=== PATIENT | female | born 1965 | race African-American/Black ===

== ENCOUNTER 2020-06-15 08:17 | Emergency (ER) | payer MEDICARE, MEDICAID, SELFPAY ==
[2020-06-15 08:21] VITALS: BP 105/60; PULSE 100; RESP 13; TEMP 37.3; O2SAT 96; BMI 23.4
--- NOTE | 2020-06-15 09:05 | PC.NURSE ---
PT REFUSING TO GET IV, FIGHTING, PULLING ARM OUT, TRINY RN AT BEDSIDE TO TRY TO CONVINCE THE PT AND EXTRA HOLDING HAND, BUT PT CONTINUOS ON PULLING AWAY, SAYING NO IV'S THAT IT WILL HURT. MATTEO BOWSER AWARE
[2020-06-15] MEDS: LORazepam 1 MG TABLET PO (09:15)
--- NOTE | 2020-06-15 09:25 | ED.DENTAL ---
HPI - Dental/Oral General Chief complaint: Dental/Oral Stated complaint: dental pain Time Seen by Provider: 06/15/20 08:33 Source: patient and EMS Mode of arrival: EMS Limitations: no limitations History of Present Illness HPI Narrative: 54yoF c PMHx of intellectually disabled, psychosis, bipolar, dementia, epilepsy, DM and hypothyroidism who is currently residing at [facility] presenting to the ED c c/o worsening right dental pain/swelling/facial swelling for the past 3 days worse today. Reports that she was started on azithromycin yesterday and took 1 total dose. Came here today due to worsening pain and facial swelling. Related Data Previous Rx's Medication Instructions Recorded clindamycin HCl 300 mg PO TID 10 Days #30 cap 06/15/20 Allergies Allergy/AdvReac Type Severity Reaction Status Date / Time penicillin V Allergy Unknown Verified 11/28/13 00:00 Penicillins [PENICILLINS] Allergy Unknown SEIZURES Unverified 03/01/20 17:36 Review of Systems Review of Systems: Constitutional : No Fever, No Chills, No changes in PO intake, No difficulty speaking, no recent dental procedure, no heat or cold intolerance while eating, no recent face trauma, ENT/Mouth : No swallowing difficulty, no change in voice, No jaw pain, + facial swelling, no drooling, no trismus, no bleeding, no throat swelling, no lacerations, no tongue swelling, gum swelling, Eyes: No Eye Pain, + periorbital Swelling Cardiovascular : No Chest Pain, No SOB Respiratory : No Cough, No Sputum, No Wheezing, No Smoke Exposure, No Dyspnea Gastrointestinal : No Nausea, No Vomiting, No Diarrhea Genitourinary : No Dysuria Musculoskeletal : No Myalgias Skin : No rash, + facial swelling or redness, Neuro : No Weakness, No Numbness, No Headache Yes all other systems are reviewed and are negative PMFSH Past Medical History Attestation statement: The following information was validated with the patient. Medical History Bipolar disorder, unspecified Dementia Diabetes 1.5, managed as type 2 Dry eye syndrome of bilateral lacrimal glands Epilepsy Hypothyroidism Intellectual disability Psychoses Social History Social History Advance Directives: Yes Advance Directives on File: Yes Advance Directives Date on File: 06/15/20 Physical Exam Vital Signs: Vital Signs: Last Vital Signs Temp 99.1 F 06/15/20 14:26 Pulse 84 06/15/20 14:26 Resp 16 06/15/20 14:26 BP 147/68 H 06/15/20 14:26 Pulse Ox 98 06/15/20 14:26 Body Mass Index 23.4 vital signs have been reviewed as normal and appeared to be correct. Blood pressure normal. Heart rate normal. Respiration rate normal. Temperature normal. Oxygen saturation normal. Appearance: Alert. Oriented X3. No acute distress. Head: Right facial swelling with mild erythema otherwise the rest of the external exam is within normal limits. Eyes: PERRLA. EOMI. No entrapment noted. Conjunctiva and sclera normal. Right lower eyelid with soft tissue swelling. Right upper eyelid within normal limits. ENT: EAC normal. TM's Normal. Patient has multiple dental caries with poor dentition with multiple missing teeth although no fluctuance or gingivitis noted at this time. No peritonsillar abscess or pharyngeal abscess noted. Pharynx normal. Uvula midline. Moist mucous membranes. No trismus noted. No drooling noted. No muffled voice noted. Neck: Normal inspection. Neck supple. FROM. No adenopathy. Thyroid Normal. No meningeal signs. No neck mass noted. CVS: Normal heart rate and rhythm. Heart sound normal. No murmurs noted. Pulses normal throughout. Respiratory: No respiratory distress. Painless inspiration. Breath sounds normal. No wheezes/rales/rhonchi noted. Chest nontender. No accessory muscle usage noted or decreased air movement noted. Back: Full range of motion noted. Skin: Skin warm and dry. Normal skin color. Normal skin turgor. No rashes/lesions/lacerations noted. Extremities: Extremities exhibit normal range of motion. Extremities nontender. Neuro: Oriented X 3. No motor deficit. No sensory deficit. Reflexes normal. Course Course Course Narrative: 10:41am - 54yoF c PMHx of intellectually disabled, psychosis, bipolar, dementia, epilepsy, DM and hypothyroidism who is currently residing at [facility] presenting to the ED c c/o worsening right dental pain/facial swelling x 3 days worse today. - Concern for dental abscess versus dental infection with facial cellulitis - Plan: Labs, blood cultures, CT scan of facial bones for dental abscess vs dental infection with facial cellulitis. Provide 1 mg of Ativan as patient is nervous about blood draw. Then re-evaluate. Reevaluation(s) Reevaluation #1: - patient's labs hemolyzed therefore she had to be redrawn labs are back at this time and all within normal limits. - awaiting CT scan of face/neck for possible dental abscess will re-evaluate. Time: 13:52 Reevaluation #2: - patient negative for dental abscess noted to have a cyst on the right maxillary sinus otherwise no other acute processes therefore patient most likely facial/periorbital cellulitis not consistent with orbital cellulitis. Patient has extra ocular movements intact no entrapment noted therefore will DC home with antibiotics patient is allergic to penicillins therefore will do clindamycin. Will DC home with instructions return if any new or worsening symptoms to follow up with primary care provider. Patient and [facility] updated at this time. They understand and agree plan. Time: 15:05 [facility] - Dental/Oral Medical Records Attestation: I reviewed the patient's medical records. Lab Data Attestation: I reviewed the patient's lab results. Result diagrams: 06/15/20 10:14 06/15/20 12:47 Labs: Lab Results 06/15/20 06/15/20 06/15/20 Range/Units 10:14 10:14 10:14 WBC 8.1 (4.8-10.8) X10*3/uL RBC 3.64 L (4.20-5.50) X10*6/uL Hgb 11.1 L (12.0-16.0) g/dl Hct 31.7 L (37-47) % MCV 87.1 (80-98) fL MCH 30.5 (27.0-33.0) pg MCHC 35.0 (31.0-35.0) g/dl RDW 13.8 (11.0-16.0) % Plt Count 178 (160-400) X10*3/uL MPV 10.4 (9.4-12.3) fL Immature Gran % (Auto) 0.2 (0.0-0.4) % Neut % (Auto) 55.3 (45-73) % Lymph % (Auto) 27.4 (20-40) % Dupage % (Auto) 16.5 H (2-11) % Eos % (Auto) 0.5 (0-4) % Baso % (Auto) 0.1 (0-2) % Lymph # (Auto) 2.2 (1.2-4.9) X10*3/uL Dupage # (Auto) 1.3 H (0.1-1.2) X10*3/uL Eos # (Auto) 0.0 (0.0-0.4) X10*3/uL Baso # (Auto) 0.0 (0.0-0.2) X10*3/uL Abs Immat Gran (auto) 0.02 (0.00-0.03) X10*3/uL Absolute Neuts (auto) 4.5 (2.0-8.3) X10*3/uL Absolute Nucleated RBC 0.000 (0.0-0.012) X10*3/uL Nucleated RBC % (auto) 0.0 (0.0-0.2) /100WBC Hold Blue Top SEE NOTE Sodium Cancelled Potassium Cancelled Chloride Cancelled Carbon Dioxide Cancelled Anion Gap Cancelled BUN Cancelled Creatinine Cancelled Estim Creat Clear Calc Cancelled Estimated GFR Cancelled Random Glucose Cancelled Lactic Acid (0.5-2.0) mmol/L Calcium Cancelled Magnesium Cancelled Total Bilirubin Cancelled Direct Bilirubin Cancelled AST Cancelled ALT Cancelled Alkaline Phosphatase Cancelled Total Protein Cancelled Albumin Cancelled 06/15/20 06/15/20 Range/Units 10:14 12:47 WBC (4.8-10.8) X10*3/uL RBC (4.20-5.50) X10*6/uL Hgb (12.0-16.0) g/dl Hct (37-47) % MCV (80-98) fL MCH (27.0-33.0) pg MCHC (31.0-35.0) g/dl RDW (11.0-16.0) % Plt Count (160-400) X10*3/uL MPV (9.4-12.3) fL Immature Gran % (Auto) (0.0-0.4) % Neut % (Auto) (45-73) % Lymph % (Auto) (20-40) % Dupage % (Auto) (2-11) % Eos % (Auto) (0-4) % Baso % (Auto) (0-2) % Lymph # (Auto) (1.2-4.9) X10*3/uL Dupage # (Auto) (0.1-1.2) X10*3/uL Eos # (Auto) (0.0-0.4) X10*3/uL Baso # (Auto) (0.0-0.2) X10*3/uL Abs Immat Gran (auto) (0.00-0.03) X10*3/uL Absolute Neuts (auto) (2.0-8.3) X10*3/uL Absolute Nucleated RBC (0.0-0.012) X10*3/uL Nucleated RBC % (auto) (0.0-0.2) /100WBC Hold Blue Top Sodium 141 Potassium 4.4 Chloride 107 Carbon Dioxide 25 Anion Gap 13 BUN 10 Creatinine 0.82 Estim Creat Clear Calc 57.0 Estimated GFR > 60 Random Glucose 102 Lactic Acid 0.9 (0.5-2.0) mmol/L Calcium 8.6 Magnesium 1.9 Total Bilirubin 0.3 Direct Bilirubin 0.2 AST 12 ALT 9 Alkaline Phosphatase 67 Total Protein 6.4 L Albumin 3.[address] face/neck soft tissue: Attestation: I personally reviewed and interpreted this imaging study as follows: Radiologist's impression: IMPRESSION: Small bilateral dependent cyst anterior wall right maxillary sinus. Discharge Plan Discharge Clinical Impression: Cellulitis, periorbital, Cellulitis of face Patient Disposition: Home, Self-Care Instructions: Periorbital Cellulitis in Adults (ED) Prescriptions: New clindamycin HCl 300 mg capsule 300 mg PO TID 10 Days Qty: 30 RF: 0 Referrals: Lalo Mock DO [Primary Care Provider] - 2 days Print Language: Czech
[2020-06-15] MEDS: Lidocaine 4 % Cream KIT 1 APPL TOPICAL (09:39)
--- NOTE | 2020-06-15 09:43 | PC.NURSE ---
pt alert, skin appropriate for ethnicity, right side of face swollen/tender to touch, pt taking po antibiotics at the facility for two weeks no improvement
[2020-06-15] MEDS: 0.9 % Sodium Chloride 1,000 ML 999 ML IVCONT (10:19)
[2020-06-15 10:23] LABS: Basophils Percent Auto 0.1 % (0-2); Eosinophils Percent Auto 0.5 % (0-4); Hematocrit 31.7 % (37-47); Hemoglobin 11.1 g/dl (12.0-16.0); Imm Gran Abs Auto 0.02 X10*3/uL (0.00-0.03); Imm Gran Pct Auto 0.2 % (0.0-0.4); Lymphocytes Absolute Auto 2.2 X10*3/uL (1.2-4.9); Lymphocytes Percent Auto 27.4 % (20-40); MANUAL DIFF FLAG NO; Mean Corpuscular Hemoglobin 30.5 pg (27.0-33.0); Mean Corpuscular Volume 87.1 fL (80-98); Mean Platelet Volume 10.4 fL (9.4-12.3); Monocytes Absolute Auto 1.3 X10*3/uL (0.1-1.2); Monocytes Percent Auto 16.5 % (2-11); Neutrophils Absolute Auto 4.5 X10*3/uL (2.0-8.3); Neutrophils Percent Auto 55.3 % (45-73); Platelet Count 178 X10*3/uL (160-400); Red Blood Count 3.64 X10*6/uL (4.20-5.50); Red Cell Distribution Width 13.8 % (11.0-16.0); White Blood Count 8.1 X10*3/uL (4.8-10.8)
[2020-06-15 10:45] LABS: Lactic Acid 0.9 mmol/L (0.5-2.0)
--- NOTE | 2020-06-15 12:41 | CT_ITS ---
EXAMINATION: CT SOFT TISSUE NECK WITH CONTRAST CLINICAL INFORMATION: Right facial swelling. COMPARISON: None TECHNIQUE: Following the intravenous administration of 100 mL of Omnipaque 350 intravenous contrast, helical imaging was performed in the axial plane with generation of coronal and sagittal reformatted images. This CT examination was performed using dose optimization techniques as appropriate, variously including the following: *Automated exposure control *Adjustment of mA and/or kV according to patient size (this includes techniques or standardized protocols for targeted exams where dose is matched to indication/reason for exam; i.e. extremities or head) *Use of iterative reconstruction technique DLP: 382 mGy-cm FINDINGS: No cervical adenopathy is identified. The parotid glands are homogeneous in attenuation. The submandibular glands are normal. No contour abnormality or pathologic enhancement is seen within the oral cavity or pharyngeal mucosal space. The laryngeal structures are normal. The parapharyngeal fat is preserved. The carotid sheath vasculature opacify normally. No extra mucosal soft tissue mass or fluid collection is seen. No retropharyngeal fluid collection is seen. The thyroid gland is normal. The superior mediastinum is unremarkable. The lung apices are clear. There is small mucosal polyp or retention cyst along the anterior wall of right maxillary sinus. The bony glenoid maxillary sinus wall appears intact. The paranasal sinuses are well-aerated and clear. There is no periapical disease. No bony abnormality involving the mandible or TM joints. There is mild soft tissue swelling in the infraorbital and premaxillary soft tissues with no gas or lymph node seen. The temporomandibular joints are normal. No periapical disease is identified. No osseous abnormalities are seen. The imaged portions of the brain parenchyma are unremarkable. CT/CT soft tissue neck w con IMPRESSION: Small bilateral dependent cyst anterior wall right maxillary sinus.
[2020-06-15 13:25] LABS: Alanine Aminotransferase 9 U/L (0-31); Albumin Level 3.6 g/dL (3.5-5.0); Alkaline Phosphatase 67 U/L (39-117); Anion Gap 13 (12-20); Aspartate Amino Transferase 12 U/L (5-31); Bilirubin Direct 0.2 mg/dL (0.0-0.5); Bilirubin Total 0.3 mg/dL (0.0-1.0); Blood Urea Nitrogen 10 mg/dL (9-16); Calcium 8.6 mg/dL (8.4-10.2); Carbon Dioxide 25 mmol/L (22-29); Chloride 107 mmol/L (96-108); Estimated Glomerular Filt Rate > 60; Glucose Random 102 mg/dL (60-115); Magnesium 1.9 mg/dL (1.6-2.6); Potassium 4.4 mmol/l (3.3-5.1); Sodium 141 mmol/L (135-145); Total Protein 6.4 g/dL (6.5-8.0)
[2020-06-15] MEDS: iohexoL 350 MG/ML 100 ML INFUS..BTL 65 ML IV (14:24)
[2020-06-15 14:26] VITALS: BP 147/68; PULSE 84; RESP 16; TEMP 37.3; O2SAT 98
[2020-06-15 15:54] VITALS: BP 137/79; PULSE 86; RESP 18; TEMP 37.1; O2SAT 96
== END 2020-06-15 16:05 | disposition home or self-care (01) ==
PROVIDERS: Physician Assistant Medical; Emergency Provider Emergency Medicine; PCP Hospitalist
DX: L03.213 Periorbital cellulitis (principal); K02.9 Dental caries, unspecified; J34.1 Cyst and mucocele of nose and nasal sinus; E11.9 Type 2 diabetes mellitus without complications; F31.9 Bipolar disorder, unspecified; F03.90 Unspecified dementia, unspecified severity, without behavioral disturbance, psychotic disturbance, mood disturbance, and anxiety
CPT/HCPCS: 36415; 70491; 80048; 80076; 83605; 83735; 85025; 87040; 96360; 99284; Q9967

== ENCOUNTER 2020-12-19 10:26 | Emergency (ER) | payer MEDICARE, MEDICAID, SELFPAY ==
--- NOTE | ~2020-12-19 | CT_ITS ---
EXAMINATION: CT CERVICAL SPINE WITHOUT CONTRAST CLINICAL INFORMATION: Fall, trauma, pain COMPARISON: CT cervical spine noncontrast 04/12/2015; CT soft tissue neck with contrast 06/15/2020. TECHNIQUE: Multidetector volumetric CT imaging of the cervical spine is performed without contrast in the axial plane. Additional 2D reformatted coronal and sagittal images are generated on the CT workstation and uploaded to PACS. This CT examination was performed using dose optimization techniques as appropriate, variously including the following: *Automated exposure control *Adjustment of mA and/or kV according to patient size (this includes techniques or standardized protocols for targeted exams where dose is matched to indication/reason for exam; i.e. extremities or head) *Use of iterative reconstruction technique DLP: 210 mGy-cm FINDINGS: There is no vertebral compression fracture, fracture line, spondylolisthesis, or prevertebral soft tissue swelling. The craniocervical junction appears normal. The odontoid appears intact. There is mild levocurvature. Normal cervical lordosis. There are degenerative disc changes at C5-C6 with anterior and posterior disc bulging with mineralization in the posterior annulus. This may be associated with borderline central stenosis. Lung apices clear. No apical pneumothorax or subcutaneous emphysema. Again, there are some macrocalcifications in the right thyroid similar to prior exam. No additional imaging indicated. CT/CT cervical spine wo con IMPRESSION: 1. No acute bony abnormality or prevertebral soft tissue swelling. 2. Degenerative disc changes C5-C6 with borderline central stenosis.
--- NOTE | ~2020-12-19 | CT_ITS ---
EXAMINATION: CT HEAD WITHOUT CONTRAST CLINICAL INFORMATION: Fall, trauma, pain COMPARISON: CT head 04/12/2015 TECHNIQUE: Contiguous axial imaging was performed from the skull base to vertex without intravenous administration of contrast. Additional 2-D coronal and sagittal reformatted images are generated on the CT workstation and uploaded to PACS. This CT examination was performed using dose optimization techniques as appropriate, variously including the following: *Automated exposure control *Adjustment of mA and/or kV according to patient size (this includes techniques or standardized protocols for targeted exams where dose is matched to indication/reason for exam; i.e. extremities or head) *Use of iterative reconstruction technique DLP: 615 mGy-cm FINDINGS: There is no intracranial hemorrhage, hematoma, or extra-axial fluid collection. The ventricles are normal in size. There is no hydrocephalus, edema, or mass effect. There is chronic periventricular white matter gliosis similar to prior CT consistent with chronic small vessel ischemic changes. Incidental bulky tentorial calcification and falx calcifications are again seen as well as some fine bilateral basal ganglia calcifications. There is no visible acute territorial infarct or mass lesion. There is a superficial scalp hematoma right posterior vertex proximally 1.4 cm. The calvarium appears intact. There is no pneumocephalus or orbital emphysema. The visualized sinuses and middle ears and mastoid air cells show no significant mucosal thickening. There are no air-fluid levels. CT/CT head/brain wo con IMPRESSION: 1. No acute intracranial abnormality. 2. Small right scalp hematoma 1.4 cm. Calvarium intact.
[2020-12-19 10:32] VITALS: RESP 16; BMI 26.6
--- NOTE | 2020-12-19 10:50 | PC.NURSE ---
dar helm at bedside, pt allowed pa to look at wound- laceration on back of head about 1-[address] and raeann.
--- NOTE | 2020-12-19 11:00 | ED_ITS ---
HPI - Fall General Chief Complaint: Fall <GATO Petersen Last Filed: 12/19/20 13:28> Stated Complaint: fall <GATO Petersen Last Filed: 12/19/20 13:28> Time Seen by Provider: 12/19/20 10:42 <GATO Petersen Last Filed: 12/19/20 13:28> Source: patient <GATO Petersen Last Filed: 12/19/20 13:28> Mode of arrival: ambulatory <GATO Petersen Last Filed: 12/19/20 13:28> Limitations: no limitations <GATO Petersen Last Filed: 12/19/20 13:28> History of Present Illness HPI Narrative: Patient presents to the ED fall and head laceration. patient Is from [facility]. patient does not have a autonomy overl herself and sister makes decisions for her. Spoke with Dr. Mock who works at [facility]. Dr. mock states he witnessed patient tripped over her slippers and fell onto the ground. He states this was a mechanical fall. patient herself denies having any headache, dizziness, chest pain, abdominal pain before falling to the ground. Dr. mock also was made aware of patient making SI and homicidal statements so she can leave [facility] facility and he states this is patient's baseline and she always make SI and HI statements. He states patient usually is placed on [facility] tech 1-1 at [facility] facility. He does not Recommend crisis evaluation. <GATO Petersen Last Filed: 12/19/20 13:28> MD complaint: fall <GATO Petersen Last Filed: 12/19/20 13:28> Related Data Home Medications: Previous Rx's Medication Instructions Recorded clindamycin HCl 300 mg PO TID 10 Days #30 cap 06/15/20 <GATO Petersen Last Filed: 12/19/20 13:28> Allergies/Adverse Reactions: Allergies Allergy/AdvReac Type Severity Reaction Status Date / Time penicillin V Allergy Unknown Verified 11/28/13 00:00 Penicillins [PENICILLINS] Allergy Unknown SEIZURES Unverified 03/01/20 17:36 <GATO Petersen Last Filed: 12/19/20 13:28> Review of Systems Review of Systems: Yes all other systems are reviewed and are negative <GATO Petersen - Last Filed: 12/19/20 13:28> Constitutional: Constitutional: Reports as per HPI and Reports no additional constitutional complaints <GATO Petersen - Last Filed: 12/19/20 13:28> Comments: scalp laceration <GATO Petersen Last Filed: 12/19/20 13:28> Eyes: Eyes: Reports as per HPI and Reports no additional eye complaints <GATO Petersen - Last Filed: 12/19/20 13:28> ENT: Reports system reviewed and no additional complaints, except as docu mented and Reports as per HPI <GATO Petersen Last Filed: 12/19/20 13:28> Cardiovascular: Cardiovascular: Reports as per HPI and Reports no additional cardiovascular complaints <GATO Petersen - Last Filed: 12/19/20 13:28> Respiratory: Respiratory: Reports as per HPI and Reports no additional respiratory complaints <GATO Petersen Last Filed: 12/19/20 13:28> Gastrointestinal: Gastrointestinal: Reports as per HPI and Reports no additional gastrointestinal complaints <GATO Petersen Last Filed: 12/19/20 13:28> Genitourinary: Genitourinary: Reports no additional female genitourinary complaints and Reports as per HPI <GATO Petersen - Last Filed: 12/19/20 13:28> Musculoskeletal: Musculoskeletal: Reports no additional musculoskeletal complaints and Reports as per HPI <GATO Petersen Last Filed: 12/19/20 13:28> Neurologic: Reports system reviewed and no additional complaints, except as documented and Reports as per HPI <GATO Petersen Last Filed: 12/19/20 13:28> [facility] Past Medical History Medical History: Medical History Bipolar disorder, unspecified Dementia Diabetes 1.5, managed as type 2 Dry eye syndrome of bilateral lacrimal glands Epilepsy Hypothyroidism Intellectual disability Psychoses <GATO Petersen - Last Filed: 12/19/20 13:28> Social History Social History: Social History Alcohol intake: never Smoked in Last 30 Days: No Use of substances other than those prescribed or required for medical reasons: No Advance Directives: No Advance Directives Information Provided: No Advance Directives Date on File: 06/15/20 Patient : No <GATO Petersen - Last Filed: 12/19/20 13:28> Physical Exam Vital Signs: Vital Signs: Last Vital Signs Pulse 78 12/19/20 12:33 Resp 16 12/19/20 12:33 BP 107/60 12/19/20 12:33 Pulse Ox 100 12/19/20 12:33 Body Mass Index 26.6 <GATO Petersen - Last Filed: 12/19/20 13:28> Vital Signs: Last Vital Signs Pulse 78 12/19/20 12:33 Resp 16 12/19/20 12:33 BP 107/60 12/19/20 12:33 Pulse Ox 100 12/19/20 12:33 Body Mass Index 26.6 <David Ji MD - Last Filed: 01/07/21 20:55> Const: General: cooperative, healthy appearing, comfortable, no acute distress, well developed, alert, awake and Physically active <GATO Petersen - Last Filed: 12/19/20 13:28> Orientation/consciousness: patient oriented x3 <GATO Petersen - Last Filed: 12/19/20 13:28> HENMT: Head: Yes normal to inspection, Yes No palpable skull fracture present, Yes normocephalic, Yes atraumatic and Yes laceration ( parietal scalp laceration) <GATO Petersen - Last Filed: 12/19/20 13:28> Eyes: General: appearance normal, both eyes and all related structures <GATO Petersen - Last Filed: 12/19/20 13:28> Neck: Neck: Yes normal visual inspection, Yes full ROM, Yes no lymphadenopathy, Yes no meningeal signs, Yes trachea midline, Yes supple and No tender <GATO Petersen - Last Filed: 12/19/20 13:28> Chest: Chest palpation & inspection: normal inspection of the chest and normal palpation of entire chest wall <GATO Petersen Last Filed: 12/19/20 13:28> Resp: Effort & Inspection: normal respiratory effort and able to speak in complete sentences <Xavier Colton, PA Jaki Last Filed: 12/19/20 13:28> Auscultation: clear to auscultation bilaterally <Xavier Colton, PA Jaki Last Filed: 12/19/20 13:28> Cardio: Jugular venous distension: no JVD <Xavier Colton, PA Jaki Last Filed: 12/19/20 13:28> Heart sounds: S1 normal heart sound present and S2 normal heart sound present <Xavier Colton, PA Jaki Last Filed: 12/19/20 13:28> GI: Inspection: Yes normal to inspection and No abdominal wall ecchymosis <Xavier Colton, PA Jaki Last Filed: 12/19/20 13:28> Palpation (GI): Soft to palpation, not firm, nontender, no guarding and not rigid <Xavier Colton, PA Jaki Last Filed: 12/19/20 13:28> : General: No CVA tenderness and Yes no CVA tenderness <Xavier Oclton, PA Jaki Last Filed: 12/19/20 13:28> Back/Spine/Pelvis: Back: no CVA tenderness, No CVA tenderness and No back tenderness <Xavier Colton, PA Jaki Last Filed: 12/19/20 13:28> Skin: General skin exam: no rashes or lesions noted and elasticity normal <Xavier Colton, PA Jaki Last Filed: 12/19/20 13:28> Neuro: General: patient oriented x3, gait normal, no meningeal signs and CN's II-XI intact bilaterally <Xavier Colton, PA Jaki Last Filed: 12/19/20 13:28> Cranial nerves: Yes CN's II-XII intact bilaterally <Xavier Colton, PA Last Filed: 12/19/20 13:28> Extrem: General: Yes normal to inspection and Yes full ROM <Xavier Colton, PA Jaki Last Filed: 12/19/20 13:28> Psych: Appearance: grossly normal, well kempt and not disheveled <Xavier Colton, PA Jaki Last Filed: 12/19/20 13:28> Course Course Course Narrative: no need for labs. Patient had mechanical fall. Spoke with Dr. mock agreement no crisis needed. Just do imaging, give tetanus, and staple wound. <GATO Petersen - Last Filed: 12/19/20 13:28> I have reviewed the chart <David Ji MD - Last Filed: 01/07/21 20:55> Reevaluation(s) Reevaluation #1: images came back negative for any fracture or brain bleed. Tdap given. Patient given Ativan and held down by nursing staff so kishor could be placed. Wound cleaned and 3 kishor placed. Patient will be sent back to [facility] facility. patient presently is not suicidal or homicidal. <GATO Petersen - Last Filed: 12/19/20 13:28> Time: 13:04 <GATO Petersen - Last Filed: 12/19/20 13:28> MDM - Fall MDM Narrative Medical decision making narrative: scalp laceration <GATO Petersen Last Filed: 12/19/20 13:28> Discharge Plan Discharge Clinical Impression: Head injury, Laceration of scalp <GATO Petersen - Last Filed: 12/19/20 13:28> Patient Disposition: Home, Self-Care <GATO Petersen - Last Filed: 12/19/20 13:28> Instructions: Head Injury (ED), Head Laceration (ED) <GATO Petersen - Last Filed: 12/19/20 13:28> Additional Instructions: return to the ED immediately for any headache, dizziness, nausea, vomiting, rectal bleeding, vomiting blood, chest pain, bloody urine, any other concerning symptoms. Victoria should be removed in 10 days. <GATO Petersen - Last Filed: 12/19/20 13:28> Prescriptions: No Action clindamycin HCl 300 mg capsule 300 mg PO TID 10 Days Qty: 30 RF: 0 <GATO Petersen - Last Filed: 12/19/20 13:28> Referrals: Bipin Moreno MD [Primary Care Provider] - 2 days ( Scalp laceration. Three kishor placed. Kishor should be removed in 10 days) <GATO Petersen - Last Filed: 12/19/20 13:28> Interventions: ED Discharge Assessment Last Done: 12/19/20 13:48 <GATO Petersen - Last Filed: 12/19/20 13:28> Discharge Date/Time: 12/19/20 13:50 <GATO Petersen - Last Filed: 12/19/20 13:28> Print Language: Spanish <GATO Petersen - Last Filed: 12/19/20 13:28>
[2020-12-19] MEDS: Diphth,Pertus(ACell),Tet Adult 0.5 ML SYRINGE IM (12:31)
[2020-12-19 12:33] VITALS: BP 107/60; PULSE 78; RESP 16; O2SAT 100
--- NOTE | 2020-12-19 12:33 | PC.NURSE ---
BECKI PLACED BY KARSON KESSLER) TO PT R POST HEAD
[2020-12-19] MEDS: LORazepam 2 MG/ML VIAL IM (12:51)
== END 2020-12-19 13:50 | disposition home or self-care (01) ==
PROVIDERS: Emergency Provider Emergency Medicine; PCP Internal Medicine
DX: S01.01XA Laceration without foreign body of scalp, initial encounter (principal); E13.9 Other specified diabetes mellitus without complications; F03.90 Unspecified dementia, unspecified severity, without behavioral disturbance, psychotic disturbance, mood disturbance, and anxiety; G40.909 Epilepsy, unspecified, not intractable, without status epilepticus; W01.0XXA Fall on same level from slipping, tripping and stumbling without subsequent striking against object, initial encounter; Y93.9 Activity, unspecified; Y92.129 Unspecified place in nursing home as the place of occurrence of the external cause; Y99.9 Unspecified external cause status
CPT/HCPCS: 12001; 70450; 72125; 90471; 90715; 96372; 99284; J2060

== ENCOUNTER 2022-04-17 14:34 | Outpatient (REF) | payer MEDICARE, MEDICAID, SELFPAY ==
--- NOTE | ~2022-04-17 | MM_ITS ---
EXAMINATION: MM SCREENING DIGITAL BREAST TOMOSYNTHESIS, BILATERAL CLINICAL INFORMATION: Screening. Asymptomatic. COMPARISON: Mammography: 06/27/2019, 07/01/2018, 06/17/2017 TECHNIQUE: Digital breast tomosynthesis is performed in both the craniocaudal and mediolateral oblique views along with computer-aided detection (CAD). Synthesized 2D images are generated from the tomosynthesis. FINDINGS: The breasts are heterogeneously dense, which may obscure small masses (ACR BI-RADS breast composition Category c). There are no significant masses, abnormal calcifications, or other abnormalities. Breast tissue composition borders on average fibroglandular. No developing density. There are scattered benign bilateral coarse and ductal secretory calcifications similar to prior studies. The axilla are unremarkable. Skin contours are smooth. MM/MM tomosynthesis screening BI IMPRESSION: No mammographic evidence of malignancy. ASSESSMENT: BI-RADS 2: Benign RECOMMENDATION: Routine annual mammography screening. This patient's information was entered into a reminder system with a target due date for their next mammogram.
== END 2022-04-17 14:35 | disposition home or self-care (01) ==
LOC: HO.MAMMO 14:34
PROVIDERS: Visit Provider Hospitalist
DX: Z12.31 Encounter for screening mammogram for malignant neoplasm of breast (principal)
CPT/HCPCS: 77063; 77067

== ENCOUNTER 2022-07-26 18:21 | Inpatient (IN) | payer MEDICARE, MEDICAID, SELFPAY ==
[2022-07-26 18:29] VITALS: BP 68/40; PULSE 78; O2SAT 100
[2022-07-26 18:39] VITALS: BP 83/41; PULSE 76; RESP 16; TEMP 36.4; O2SAT 100; BMI 17.7
[2022-07-26 18:47] VITALS: BP 83/41; PULSE 75; RESP 16; TEMP 36.4; O2SAT 100; BMI 17.7
--- NOTE | 2022-07-26 19:37 | ED_ITS ---
HPI - General Adult General Chief complaint: General Medical Stated complaint: INCR WEAKNESS,LOW BP 76/47 FROM SNF PER EMS Time Seen by Provider: 07/26/22 19:01 Source: EMS and RN notes reviewed Mode of arrival: EMS History of Present Illness HPI narrative: Patient with history of dementia, diabetes mellitus, bipolar disorder, epilepsy, sent from group home for decreased oral intake and lethargic and confusion blood pressure noticed to be 79/50 with pulse rate of 72 saturating 100% patient unable to give detailed history no history of fall or head injury Related Data Previous Rx's Medication Instructions Recorded clindamycin HCl 300 mg capsule 300 mg PO TID Periorbital 06/15/20 cellulitis 10 days #30 caps Allergies Allergy/AdvReac Type Severity Reaction Status Date / Time penicillin V Allergy Unknown Seizure Verified 07/26/22 18:38 Penicillins [PENICILLINS] Allergy Unknown SEIZURES Verified 07/26/22 18:38 Review of Systems Review of Systems: Yes Unobtainable due to mental status PMFSH Past Medical History Medical History Bipolar disorder, unspecified Dementia Diabetes 1.5, managed as type 2 Dry eye syndrome of bilateral lacrimal glands Epilepsy Hypothyroidism Intellectual disability Psychoses Social History Social History Alcohol intake: never Smoked in Last 30 Days: No Use of substances other than those prescribed or required for medical reasons: No Advance Directives: Yes Advance Directives on File: Yes Advance Directives Date on File: 06/15/20 Patient : No Physical Exam ED Vital Signs: Vital Signs - 24 hr 07/26/22 18:39 07/26/22 18:47 07/26/22 22:39 Temperature 97.5 F 97.5 F 97.8 F Pulse Rate 76 75 68 Respiratory Rate 16 16 10 L Blood Pressure 83/41 L 83/41 L 90/47 L Pulse Oximetry 100 100 98 Oxygen Delivery Method Room Air Room Air Room Air BMI result Body Mass Index 17.7 APPEARANCE: LETHARGIC, PALE LOOKING, NO ACUTE DISTRESS. EYES: PALLOR+ ENT: PHARYNX NORMAL. ORAL MUCOSA MOIST NECK: NORMAL INSPECTION. NECK SUPPLE. CVS: NORMAL HEART RATE AND RHYTHM. PULSES NORMAL. RESPIRATORY: NO RESPIRATORY DISTRESS. EQUAL AIR ENTRY BILATERAL, NO WHEEZING/RALES/RHONCHI ABDOMEN: SOFT AND NONTENDER. BOWEL SOUNDS ARE PRESENT, NO MASS PALPABLE, NO CVA TENDERNESS SKIN: SKIN WARM AND DRY. NORMAL SKIN COLOR. NORMAL SKIN TURGOR. EXTREMITIES: NO LOWER EXTREMITY EDEMA. NO CALF TENDERNESS NEURO: LETHARGIC MOVING ALL 4 EXTREMITIES. Medications Administered Generic Name Dose Route Start Last Admin Trade Name Freq PRN Reason Stop Dose Admin Enoxaparin Sodium 30 mg 07/26/22 23:30 07/26/22 23:28 Enoxaparin Sodium 30 Mg/0.3 Ml Syringe SUBCUT 30 mg Q24H HENRI Administration Lactated Ringer's 1,000 mls @ 100 mls/hr 07/26/22 23:00 07/26/22 23:22 Lr IVCONT 100 mls/hr .Q10H HENRI Administration Sodium Chloride 3 ml 07/27/22 00:00 07/26/22 23:28 0.9 % Sodium Chloride Flush 3 Ml Syringe IVFLUSH Not Given QSHIFT HENRI Discontinued Medications Generic Name Dose Route Start Last Admin Trade Name Freq PRN Reason Stop Dose Admin Sodium Chloride 1,000 mls @ 999 mls/hr 07/26/22 19:51 07/26/22 22:08 Ns IV 07/26/22 20:51 Infused .Q1H1M ONE Infusion Sodium Chloride 1,000 mls @ 999 mls/hr 07/26/22 21:50 07/26/22 23:22 Ns IV 07/26/22 22:50 Infused .Q1H1M ONE Infusion Medical Decision Making Medical Decision Making [facility] Narrative: PATIENT WITH FAILURE TO THRIVE WITH ELEVATED CREATININE FROM HER BASELINE SUGGESTIVE AJ CHRONIC ANEMIA PREVIOUS HEMOGLOBIN WAS 8.5 2 WEEKS AGO AT [facility] RECEIVED IV FLUIDS IN THE ER ALSO NOTICED A UTI GIVE ANTIBIOTIC ROCEPHIN BLOOD CULTURES DONE NORMAL LACTIC ACID PATIENT'S BLOOD PRESSURE IMPROVED DURING STAY IN THE ER AFTER IV FLUIDS Differential Diagnosis SEPSIS/FAILURE TO THRIVE/PNEUMONIA/DEPRESSION/UTI/dementia Consult Healthcare Provider Management of the patient was discussed with: Hospitalist Lab Data MDM Lab Attestation statement: I reviewed the patient's lab results. 07/26/22 19:50 07/26/22 20:59 Labs: Lab Results 07/26/22 07/26/22 07/26/22 Range/Units 19:50 19:50 20:59 WBC 6.1 (4.8-10.8) X10*3/uL RBC 2.55 L (4.20-5.50) X10*6/uL Hgb 8.2 L (12.0-16.0) g/dl Hct 23.4 L (37.0-47.0) % MCV 91.8 (80.0-98.0) fL MCH 32.2 (27.0-33.0) pg MCHC 35.0 (31.0-35.0) g/dl RDW 15.8 (11.0-16.0) % Plt Count 101 L (160-400) X10*3/uL MPV 11.1 (9.4-12.3) fL Immature Gran % (Auto) 0.5 H (0.0-0.4) % Neut % (Auto) 53.5 (45-73) % Lymph % (Auto) 26.3 (20-40) % [place] % (Auto) 19.2 H (2-11) % Eos % (Auto) 0.5 (0-4) % Baso % (Auto) 0.0 (0-2) % Lymph # (Auto) 1.6 (1.2-4.9) X10*3/uL [place] # (Auto) 1.2 (0.1-1.2) X10*3/uL Eos # (Auto) 0.0 (0.0-0.4) X10*3/uL Baso # (Auto) 0.0 (0.0-0.2) X10*3/uL Abs Immat Gran (auto) 0.03 (0.00-0.03) X10*3/uL Absolute Neuts (auto) 3.3 (2.0-8.3) x10*3/uL Absolute Nucleated RBC 0.000 (0.0-0.012) X10*3/uL Nucleated RBC % (auto) 0.0 (0.0-0.2) /100WBC Sodium 142 (135-145) mmol/L Potassium 4.5 (3.3-5.1) mmol/L Chloride 112 H (96-108) mmol/L Carbon Dioxide 21 L (22-29) mmol/L Anion Gap 14 (12-20) BUN 22 H (9-16) mg/dL Creatinine 2.21 H (0.5-1.4) mg/dL Estim Creat Clear Calc 20.3 Estimated GFR 23 Random Glucose 77 (60-115) mg/dL Lactic Acid 0.8 (0.5-2.0) mmol/L Calcium 8.0 L D (8.4-10.2) mg/dL Total Bilirubin 0.2 (0.0-1.0) mg/dL AST 13 (5-31) U/L ALT 9 (0-31) U/L Alkaline Phosphatase 44 (39-117) U/L Total Protein 4.8 L (6.5-8.0) g/dL Albumin 2.6 L (3.5-5.0) g/dL Urine Color Urine Appearance Urine pH (5.0-9.0) Ur Specific [place] (1.005-1.025) Urine Protein (Neg-Trace) mg/dL Urine Glucose (UA) (Negative) mg/dL Urine Ketones (Negative) mg/dL Urine Blood (Negative) Urine Nitrite (Negative) Ur Leukocyte Esterase (Negative) Urine RBC (0-2) /HPF Urine WBC (0-5) /HPF Ur Squamous Epith Cells (0-2) /HPF Urine Bacteria (None Seen) Hyaline Casts (0-2) /LPF COVID-19 ([place]) (Negative) COVID-19 Clin Com Blood Type Antibody Screen 07/26/22 07/26/22 07/26/22 Range/Units 20:59 22:25 22:27 WBC (4.8-10.8) X10*3/uL RBC (4.20-5.50) X10*6/uL Hgb (12.0-16.0) g/dl Hct (37.0-47.0) % MCV (80.0-98.0) fL MCH (27.0-33.0) pg MCHC (31.0-35.0) g/dl RDW (11.0-16.0) % Plt Count (160-400) X10*3/uL MPV (9.4-12.3) fL Immature Gran % (Auto) (0.0-0.4) % Neut % (Auto) (45-73) % Lymph % (Auto) (20-40) % [place] % (Auto) (2-11) % Eos % (Auto) (0-4) % Baso % (Auto) (0-2) % Lymph # (Auto) (1.2-4.9) X10*3/uL [place] # (Auto) (0.1-1.2) X10*3/uL Eos # (Auto) (0.0-0.4) X10*3/uL Baso # (Auto) (0.0-0.2) X10*3/uL Abs Immat Gran (auto) (0.00-0.03) X10*3/uL Absolute Neuts (auto) (2.0-8.3) x10*3/uL Absolute Nucleated RBC (0.0-0.012) X10*3/uL Nucleated RBC % (auto) (0.0-0.2) /100WBC Sodium (135-145) mmol/L Potassium (3.3-5.1) mmol/L Chloride (96-108) mmol/L Carbon Dioxide (22-29) mmol/L Anion Gap (12-20) BUN (9-16) mg/dL Creatinine (0.5-1.4) mg/dL Estim Creat Clear Calc Estimated GFR Random Glucose (60-115) mg/dL Lactic Acid (0.5-2.0) mmol/L Calcium (8.4-10.2) mg/dL Total Bilirubin (0.0-1.0) mg/dL AST (5-31) U/L ALT (0-31) U/L Alkaline Phosphatase (39-117) U/L Total Protein (6.5-8.0) g/dL Albumin (3.5-5.0) g/dL Urine Color Yellow Urine Appearance Cloudy Urine pH 5.5 (5.0-9.0) Ur Specific [place] 1.015 (1.005-1.025) Urine Protein Trace (Neg-Trace) mg/dL Urine Glucose (UA) Negative (Negative) mg/dL Urine Ketones Trace (Negative) mg/dL Urine Blood Trace H (Negative) Urine Nitrite Positive H (Negative) Ur Leukocyte Esterase Large (3+) H (Negative) Urine RBC 0-2 (0-2) /HPF Urine WBC >50 H (0-5) /HPF Ur Squamous Epith Cells 0-2 (0-2) /HPF Urine Bacteria 4+ (None Seen) Hyaline Casts >20 (0-2) /LPF COVID-19 ([place]) Negative (Negative) COVID-19 Clin Com See Note Blood Type A Positive Antibody Screen NEGATIVE Discharge Plan Discharge Clinical Impression: Adult failure to thrive, UTI (urinary tract infection), Anemia in chronic illness Patient Disposition: Admitted As Inpatient
[2022-07-26] MEDS: 0.9 % Sodium Chloride 1,000 ML 999 ML IV ×2 (19:54→22:09)
--- NOTE | 2022-07-26 19:55 | PC.NURSE ---
Patient is alert to self and person. Pt is afebrile. BP running soft 76-88/44-48, P 70-78. O2 Sat 98% RA. RR 19.Dr. Curtis at bedside, patient is a difficult stick, MD placed 20 G EJ in left neck, 1 L NS bolus started and running. No s/s of discomfort noted, acute distress noted.
[2022-07-26 19:58] LABS: MANUAL DIFF FLAG NO
[2022-07-26 20:06] LABS: Eosinophils Percent Auto 0.5 % (0-4); Hematocrit 23.4 % (37.0-47.0); Hemoglobin 8.2 g/dl (12.0-16.0); Imm Gran Abs Auto 0.03 X10*3/uL (0.00-0.03); Imm Gran Pct Auto 0.5 % (0.0-0.4); Lymphocytes Absolute Auto 1.6 X10*3/uL (1.2-4.9); Lymphocytes Percent Auto 26.3 % (20-40); Mean Corpuscular Hemoglobin 32.2 pg (27.0-33.0); Mean Corpuscular Volume 91.8 fL (80.0-98.0); Mean Platelet Volume 11.1 fL (9.4-12.3); Monocytes Absolute Auto 1.2 X10*3/uL (0.1-1.2); Monocytes Percent Auto 19.2 % (2-11); Neutrophils Absolute Auto 3.3 x10*3/uL (2.0-8.3); Neutrophils Percent Auto 53.5 % (45-73); Platelet Count 101 X10*3/uL (160-400); Red Blood Count 2.55 X10*6/uL (4.20-5.50); Red Cell Distribution Width 15.8 % (11.0-16.0); White Blood Count 6.1 X10*3/uL (4.8-10.8)
[2022-07-26 20:09] LABS: Lactic Acid 0.8 mmol/L (0.5-2.0)
[2022-07-26 21:23] LABS: Alanine Aminotransferase 9 U/L (0-31); Albumin Level 2.6 g/dL (3.5-5.0); Alkaline Phosphatase 44 U/L (39-117); Anion Gap 14 (12-20); Aspartate Amino Transferase 13 U/L (5-31); Bilirubin Total 0.2 mg/dL (0.0-1.0); Blood Urea Nitrogen 22 mg/dL (9-16); Carbon Dioxide 21 mmol/L (22-29); Chloride 112 mmol/L (96-108); Creatinine Clr Calc Pharmacy 20.3; Estimated Glomerular Filt Rate 23; Glucose Random 77 mg/dL (60-115); Potassium 4.5 mmol/L (3.3-5.1); Sodium 142 mmol/L (135-145); Total Protein 4.8 g/dL (6.5-8.0)
[2022-07-26 22:39] VITALS: BP 90/47; PULSE 68; RESP 10; TEMP 36.6; O2SAT 98
[2022-07-26 22:57] LABS: COVID-19 Test Negative (Negative); IDNOW Serial# 6674DD1D
--- NOTE | 2022-07-26 23:08 | P.HPHOSP_ITS ---
History of Present Illness Date of Service: 07/26/22 Chief Complaint: lethargy, decreased po intake 57-year-old female with past medical history of bipolar disorder, dementia, diabetes, epilepsy, hypothyroidism, intellectual disability, sent in from assisted for lethargy and decreased p.o. intake. patient is awake but has flat affect, able to wake up and answer questions appropriately. She is oriented to self and place. She just states that she feels weak, but she denies having any chest pain, no abdominal pain, no nausea or vomiting, no diarrhea constipation, no urinary symptoms. on arrival to the ED patient found to be hypotensive with blood pressure of 83/41, satting 100% on room air Labs are significant for WBC count 6.1, hemoglobin of 8.2, hematocrit 23.4 sodium of 142, chloride of 112, creatinine of 2.21 with a BUN of 22 with a baseline of 0.8, urine positive for nitrites and WBC as well as leukocyte Estrace Patient started on IV antibiotics will be admitted for further management in regards to her blood pressure, nodes from assisted state the patient is chronically has systolic bloodpressure in high 80s Review of Systems Review of Systems: Yes all other systems are reviewed and are negative [facility] Medical History Bipolar disorder, unspecified Dementia Diabetes 1.5, managed as type 2 Dry eye syndrome of bilateral lacrimal glands Epilepsy Hypothyroidism Intellectual disability Psychoses Social History Alcohol intake: never Smoked in Last 30 Days: No Use of substances other than those prescribed or required for medical reasons: No Advance Directives: Yes Advance Directives on File: Yes Advance Directives Date on File: 06/15/20 Patient : No Meds Allergies Allergy/AdvReac Type Severity Reaction Status Date / Time penicillin V Allergy Unknown Seizure Verified 07/26/22 18:38 Penicillins [PENICILLINS] Allergy Unknown SEIZURES Verified 07/26/22 18:38 Active Medications: Current Medications Acetaminophen (Acetaminophen 325 Mg Tablet) 650 mg PO Q6H PRN PRN Reason: Pain, Mild (Pain Scale 1-3) Enoxaparin Sodium (Enoxaparin Sodium 40 Mg/0.4 Ml Syringe) 40 mg SUBCUT Q24H HENRI Lactated Ringer's (Lr) 1,000 mls @ 100 mls/hr IVCONT .Q10H HENRI Ondansetron HCl (Ondansetron Hcl 4 Mg/2 Ml Vial) 4 mg IVPUSH Q8H PRN PRN Reason: Nausea and Vomiting Sodium Chloride (0.9 % Sodium Chloride Flush 3 Ml Syringe) 3 ml IVFLUSH QSHIFT HENRI Physical Exam Vital Signs and Narrative: Vital Signs: Last Vital Signs Temp 97.8 F 07/26/22 22:39 Pulse 68 07/26/22 22:39 Resp 10 L 07/26/22 22:39 BP 90/47 L 07/26/22 22:39 Pulse Ox 98 07/26/22 22:39 O2 Del Method 07/26/22 22:39 BMI result Body Mass Index 17.7 Const: Other: frail-appearing adult she is sleeping but wakes of and answers questions by shaking her head yes and no, she seems to have a flat affect General: cooperative and no acute distress Eyes: General: appearance normal, both eyes and all related structures Resp: Effort & Inspection: normal respiratory effort Auscultation: clear to auscultation bilaterally Cardio: Rate: regular rate Rhythm: regular rhythm GI: Palpation (GI): Soft to palpation Auscultation: normal bowel sounds Skin: General skin exam: no rashes or lesions noted Neuro: Cognition (Neuro): normal cognition Extrem: General: Yes normal to inspection and Yes no pedal edema Results Labs 07/26/22 19:50 07/26/22 20:59 Labs: Laboratory Results - last 24 hr 07/26/22 07/26/22 07/26/22 19:50 19:50 20:59 MCV 91.8 MCH 32.2 MCHC 35.0 RDW 15.8 Plt Count 101 L MPV 11.1 Immature Gran % (Auto) 0.5 H Neut % (Auto) 53.5 Lymph % (Auto) 26.3 [place] % (Auto) 19.2 H Eos % (Auto) 0.5 Baso % (Auto) 0.0 Lymph # (Auto) 1.6 [place] # (Auto) 1.2 Eos # (Auto) 0.0 Baso # (Auto) 0.0 Abs Immat Gran (auto) 0.03 Absolute Neuts (auto) 3.3 Absolute Nucleated RBC 0.000 Nucleated RBC % (auto) 0.0 Anion Gap 14 Estim Creat Clear Calc 20.3 Estimated GFR 23 Random Glucose 77 Lactic Acid 0.8 Calcium 8.0 L D Total Bilirubin 0.2 AST 13 ALT 9 Alkaline Phosphatase 44 Total Protein 4.8 L Albumin 2.6 L COVID-19 ([place]) COVID-19 Clin Com 07/26/22 22:25 MCV MCH MCHC RDW Plt Count MPV Immature Gran % (Auto) Neut % (Auto) Lymph % (Auto) [place] % (Auto) Eos % (Auto) Baso % (Auto) Lymph # (Auto) [place] # (Auto) Eos # (Auto) Baso # (Auto) Abs Immat Gran (auto) Absolute Neuts (auto) Absolute Nucleated RBC Nucleated RBC % (auto) Anion Gap Estim Creat Clear Calc Estimated GFR Random Glucose Lactic Acid Calcium Total Bilirubin AST ALT Alkaline Phosphatase Total Protein Albumin COVID-19 ([place]) Negative COVID-19 Clin Com See Note Assessment and Plan (1) UTI (urinary tract infection): Status: Acute (2) Lethargy: Status: Acute (3) AJ (acute kidney injury): Status: Acute (4) Acute on chronic anemia: Status: Acute (5) Adult failure to thrive: Status: Acute Plan 57-year-old female with past medical history of bipolar disorder hypothyroidism, dementia diabetes presents to the hospital from assisted with lethargy # lethargy - no altered mental status /encephalopathy, likely secondary to UTI - patient wakes up, answers questions appropriately, oriented to self and place - will treat with IV antibiotics, IV fluids - monitor status # UTI - positive UA for acute infection - will treat with IV antibiotics - follow cultures # AJ - likely secondary to dehydration and acute infection - will treat with IV fluids - follow BMP # acute on chronic anemia - no evidence of acute bleed - hemodynamically stable - will obtain guaiac stool as well as B12 and ferritin - CBC daily, threshold transfusion hemoglobin less than 7 med rec is still pending, asked the nursing staff several times for med rec they are working on it DVT ppx: Lovenox given patient's requirement for IV fluids for AJ as well as IV antibiotics patient require minimum 2 nights inpatient hospital stay Time Spent With Patient Time: Total time managing care of this patient today ____ minutes. Quality Stroke Does the patient have a stroke diagnosis?: No VTE Prior VTE?: No VTE Risk Level:: Medical - moderate - high VTE Device Contraindication: Treatment Not Indicated VTE Drug Contraindication: N/A - Med Ordered
[2022-07-26 23:14] VITALS: BP 99/55; PULSE 73; RESP 10; TEMP 36.9; O2SAT 98
[2022-07-26] MEDS: Lactated Ringers 1,000 ML 100 ML IVCONT (23:22)
[2022-07-26] MEDS: Enoxaparin Sodium 30 MG/0.3 ML SYRINGE SUBCUT (23:28)
[2022-07-27] VITALS (7 sets, daily range): BP systolic 90–128; BP diastolic 48–64; PULSE 71–100; RESP 11–18; TEMP 36.3–37.1; O2SAT 96–100; BMI 17.9
[2022-07-27 00:16] LABS: Anion Gap 12 (12-20); Blood Urea Nitrogen 19 mg/dL (9-16); Calcium 7.6 mg/dL (8.4-10.2); Carbon Dioxide 20 mmol/L (22-29); Chloride 115 mmol/L (96-108); Creatinine Clr Calc Pharmacy 23.6; Estimated Glomerular Filt Rate 27; Glucose Random 76 mg/dL (60-115); Potassium 4.3 mmol/L (3.3-5.1); Sodium 143 mmol/L (135-145)
[2022-07-27 00:17] LABS: Appearance Urine Cloudy; Color Urine Yellow; Glucose Urine UA Negative (Negative); Leukocyte Esterase Urine Large (3+) (Negative); Nitrite Urine Positive (Negative); PH 5.5 (5.0-9.0); Specific Gravity - Urine 1.015 (1.005-1.025); UMIC TRIGGER UACC YES; Urine Blood Trace (Negative); Urine Ketones Trace mg/dL (Negative); Urine Protein Trace mg/dL (Neg-Trace)
[2022-07-27 00:32] LABS: Bacteria Urine 4+ (None Seen); Hyaline Casts Urine >20 /LPF (0-2); RBC Urine 0-2 /HPF (0-2); Squamous Epithelial Cell Urine 0-2 /HPF (0-2); UACC Culture Trigger YES; WBC Urine >50 /HPF (0-5)
[2022-07-27] MEDS: cefTRIAXone sodium 1 GM in 0.9 % Sodium Chloride 50 ML IV (01:42)
--- NOTE | 2022-07-27 01:47 | PC.NURSE ---
Patient is more alert and talkative. Patient offers no complains at this time, she denies any pain. Patient is afebrile. BP running soft 90s-50s-at patient's baseline. P 68-75. O2 Sat 98-99% RA. Ceftriaxone 1 gm IV started for UTI, patient tolerating IV abt w/o adverse reactions. LR running at 100 mL/hr. Call guerrero within patient's reach.
[2022-07-27 06:37] LABS: MANUAL DIFF FLAG NO
[2022-07-27 06:50] LABS: Basophils Percent Auto 0.2 % (0-2); Eosinophils Percent Auto 0.8 % (0-4); Hemoglobin 8.4 g/dl (12.0-16.0); Imm Gran Abs Auto 0.02 X10*3/uL (0.00-0.03); Imm Gran Pct Auto 0.4 % (0.0-0.4); Lymphocytes Absolute Auto 1.4 X10*3/uL (1.2-4.9); Lymphocytes Percent Auto 28.6 % (20-40); Mean Corpuscular HGB Conc 33.6 g/dl (31.0-35.0); Mean Corpuscular Volume 92.3 fL (80.0-98.0); Mean Platelet Volume 10.6 fL (9.4-12.3); Monocytes Absolute Auto 0.9 X10*3/uL (0.1-1.2); Monocytes Percent Auto 18.7 % (2-11); Neutrophils Absolute Auto 2.5 x10*3/uL (2.0-8.3); Neutrophils Percent Auto 51.3 % (45-73); Platelet Count 96 X10*3/uL (160-400); Red Blood Count 2.71 X10*6/uL (4.20-5.50); Red Cell Distribution Width 15.9 % (11.0-16.0); White Blood Count 4.9 X10*3/uL (4.8-10.8)
[2022-07-27 07:24] LABS: Anion Gap 13 (12-20); Blood Urea Nitrogen 17 mg/dL (9-16); Calcium 7.9 mg/dL (8.4-10.2); Carbon Dioxide 20 mmol/L (22-29); Chloride 113 mmol/L (96-108); Creatinine Clr Calc Pharmacy 30.3; Estimated Glomerular Filt Rate 36; Glucose Random 73 mg/dL (60-115); Potassium 4.5 mmol/L (3.3-5.1); Sodium 141 mmol/L (135-145)
[2022-07-27] MEDS: Lactated Ringers 1,000 ML 100 ML IVCONT ×2 (07:42→16:41)
--- NOTE | 2022-07-27 07:47 | PC.NURSE ---
Pt is alert/oriented x 2. Verbally reports feeling better and aggreeable to attempt breakfast however only tolerated two bites of toast and half OJ cup.. Cleaned for urine incontinence and purewick in place. NSR on tele, Last SBP 104. sat 100% on room air. Skin is midly pale, warm and dry. Speech is clear but slow. At times confused but easily directable. Breathing easy, no SOB.
[2022-07-27 07:54] LABS: Ferritin 331 ng/mL (10-250); Folate 4.1 ng/mL (> or = 4.0); Vitamin B12 723 pg/mL (200-900)
--- NOTE | 2022-07-27 08:26 | PHA.MEDREC ---
Pharmacy Consult ? Medication Reconciliation Pharmacy has completed the medication reconciliation. Patient had list from [email or web address].
[2022-07-27] MEDS: Divalproex Sodium 500 MG TABLET.DR PO ×2 (09:36→20:04)
[2022-07-27] MEDS: chlorproMAZINE HCl 100 MG TABLET PO ×2 (09:36→20:05)
[2022-07-27] MEDS: chlorproMAZINE HCl 25 MG TABLET 75 MG PO ×2 (09:36→20:04)
[2022-07-27] MEDS: Atorvastatin Calcium 10 MG TABLET PO (09:37)
[2022-07-27] MEDS: Levothyroxine Sodium 25 MCG TABLET PO (09:37)
--- NOTE | 2022-07-27 10:04 | PC.NURSE ---
Meds dmin, pt able to tolerate meds whole in applesauce. Propanolo held for soft BP. Pt remains alert but at times confused
[2022-07-27] MEDS: rifAXIMin 550 MG TABLET PO ×2 (10:22→20:06)
--- NOTE | 2022-07-27 14:35 | HO.PM.IMPN ---
Subjective Subjective Date of Service: 07/28/22 Interval History: lethargy, decreased po intake Review of Systems P.o. intake improving, denies any chest pain or shortness of breath or fever or chills or cough Physical Exam Vital Signs: Vital Signs: Last Vital Signs Temp 98.2 F 07/27/22 06:42 Pulse 79 07/27/22 10:23 Resp 16 07/27/22 10:23 BP 93/48 L 07/27/22 10:23 Pulse Ox 99 07/27/22 10:23 O2 Del Method 07/27/22 10:23 BMI result Body Mass Index 17.7 Appearance: awake ,interactive .?frail appearin cvs: rrr, [id number]. res: clear to auscultation ,no rhonchii or wheezing abd: no rebound or guarding ,nt, bs present. ext pulses present , no cyanosis. neuro: moves all extermities Objective Data Active Medications Acetaminophen (Acetaminophen 325 Mg Tablet) 650 mg PO Q6H PRN PRN Reason: Pain, Mild (Pain Scale 1-3) Atorvastatin Calcium (Atorvastatin Calcium 10 Mg Tablet) 10 mg PO DAILY [facility] Last Admin: 07/27/22 09:37 Dose: 10 mg Documented By: RUBIA Chlorpromazine HCl (Chlorpromazine Hcl 25 Mg Tablet) 75 mg PO BID [facility] Last Admin: 07/27/22 09:36 Dose: 75 mg Documented By: RUBIA Chlorpromazine HCl (Chlorpromazine Hcl 100 Mg Tablet) 100 mg PO BID [facility] Last Admin: 07/27/22 09:36 Dose: 100 mg Documented By: RUBIA Divalproex Sodium (Divalproex Sodium 500 Mg Tablet.) 500 mg PO BID [facility] Last Admin: 07/27/22 09:36 Dose: 500 mg Documented By: RUBIA Enoxaparin Sodium (Enoxaparin Sodium 30 Mg/0.3 Ml Syringe) 30 mg SUBCUT Q24H [facility] Last Admin: 07/26/22 23:28 Dose: 30 mg Documented By: JOSE Lactated Ringer's (Lr) 1,000 mls @ 100 mls/hr IVCONT .Q10H [facility] Last Admin: 07/27/22 07:42 Dose: 100 mls/hr Documented By: RUBIA Ceftriaxone Sodium 1 gm/ (Sodium Chloride) 50 mls @ 100 mls/hr IV Q24H [facility] Levothyroxine Sodium (Levothyroxine Sodium 25 Mcg Tablet) 25 mcg PO DAILY@0600 [facility] Last Admin: 07/27/22 09:37 Dose: 25 mcg Documented By: RUBIA Omeprazole (Omeprazole 40 Mg Capsule.Dr) 80 mg PO DAILY@0630 [facility] Ondansetron HCl (Ondansetron Hcl 4 Mg/2 Ml Vial) 4 mg IVPUSH Q8H PRN PRN Reason: Nausea and Vomiting Propranolol HCl (Propranolol Hcl 10 Mg Tablet) 10 mg PO TID [facility]; Protocol Last Admin: 07/27/22 09:37 Dose: Not Given Documented By: RUBIA Non-Admin Reason: Decreased Blood Pressure Rifaximin (Rifaximin 550 Mg Tablet) 550 mg PO BID [facility] Last Admin: 07/27/22 10:22 Dose: 550 mg Documented By: RUBIA Sodium Chloride (0.9 % Sodium Chloride Flush 3 Ml Syringe) 3 ml IVFLUSH QSHIFT [facility] Last Admin: 07/27/22 07:43 Dose: Not Given Documented By: RUBIA Non-Admin Reason: IV Running Labs 07/27/22 06:32 07/27/22 06:32 Labs: Laboratory Results - last 24 hr 07/26/22 07/26/22 07/26/22 19:50 19:50 20:59 MCV 91.8 MCH 32.2 MCHC 35.0 RDW 15.8 Plt Count 101 L MPV 11.1 Immature Gran % (Auto) 0.5 H Neut % (Auto) 53.5 Lymph % (Auto) 26.3 [place] % (Auto) 19.2 H Eos % (Auto) 0.5 Baso % (Auto) 0.0 Lymph # (Auto) 1.6 [place] # (Auto) 1.2 Eos # (Auto) 0.0 Baso # (Auto) 0.0 Abs Immat Gran (auto) 0.03 Absolute Neuts (auto) 3.3 Absolute Nucleated RBC 0.000 Nucleated RBC % (auto) 0.0 Anion Gap 14 Estim Creat Clear Calc 20.3 Estimated GFR 23 Random Glucose 77 Lactic Acid 0.8 Calcium 8.0 L D Ferritin Total Bilirubin 0.2 AST 13 ALT 9 Alkaline Phosphatase 44 Total Protein 4.8 L Albumin 2.6 L Vitamin B12 Folate Urine Color Urine Appearance Urine pH Ur Specific [place] Urine Protein Urine Glucose (UA) Urine Ketones Urine Blood Urine Nitrite Ur Leukocyte Esterase Urine RBC Urine WBC Ur Squamous Epith Cells Urine Bacteria Hyaline Casts COVID-19 ([place]) COVID-19 Clin Com Blood Type Antibody Screen 07/26/22 07/26/22 07/26/22 20:59 22:25 22:27 MCV MCH MCHC RDW Plt Count MPV Immature Gran % (Auto) Neut % (Auto) Lymph % (Auto) [place] % (Auto) Eos % (Auto) Baso % (Auto) Lymph # (Auto) [place] # (Auto) Eos # (Auto) Baso # (Auto) Abs Immat Gran (auto) Absolute Neuts (auto) Absolute Nucleated RBC Nucleated RBC % (auto) Anion Gap Estim Creat Clear Calc Estimated GFR Random Glucose Lactic Acid Calcium Ferritin Total Bilirubin AST ALT Alkaline Phosphatase Total Protein Albumin Vitamin B12 Folate Urine Color Yellow Urine Appearance Cloudy Urine pH 5.5 Ur Specific [place] 1.015 Urine Protein Trace Urine Glucose (UA) Negative Urine Ketones Trace Urine Blood Trace H Urine Nitrite Positive H Ur Leukocyte Esterase Large (3+) H Urine RBC 0-2 Urine WBC >50 H Ur Squamous Epith Cells 0-2 Urine Bacteria 4+ Hyaline Casts >20 COVID-19 ([place]) Negative COVID-19 Clin Com See Note Blood Type A Positive Antibody Screen NEGATIVE 07/26/22 07/27/22 07/27/22 23:44 06:32 06:32 MCV 92.3 MCH 31.0 MCHC 33.6 RDW 15.9 Plt Count 96 L MPV 10.6 Immature Gran % (Auto) 0.4 Neut % (Auto) 51.3 Lymph % (Auto) 28.6 [place] % (Auto) 18.7 H Eos % (Auto) 0.8 Baso % (Auto) 0.2 Lymph # (Auto) 1.4 [place] # (Auto) 0.9 Eos # (Auto) 0.0 Baso # (Auto) 0.0 Abs Immat Gran (auto) 0.02 Absolute Neuts (auto) 2.5 Absolute Nucleated RBC 0.000 Nucleated RBC % (auto) 0.0 Anion Gap 12 13 Estim Creat Clear Calc 23.6 30.3 Estimated GFR 27 36 Random Glucose 76 73 Lactic Acid Calcium 7.6 L 7.9 L Ferritin 331 H Total Bilirubin AST ALT Alkaline Phosphatase Total Protein Albumin Vitamin B12 723 Folate 4.1 Urine Color Urine Appearance Urine pH Ur Specific [place] Urine Protein Urine Glucose (UA) Urine Ketones Urine Blood Urine Nitrite Ur Leukocyte Esterase Urine RBC Urine WBC Ur Squamous Epith Cells Urine Bacteria Hyaline Casts COVID-19 ([place]) COVID-19 Clin Com Blood Type Antibody Screen Assessment and Plan (1) AJ (acute kidney injury): Status: Acute (2) Acute on chronic anemia: Status: Acute (3) UTI (urinary tract infection): Status: Acute Plan 57-year-old female with past medical history of bipolar disorder hypothyroidism, dementia diabetes presents to the hospital from senior care with lethargy #? lethargy-? no altered mental status /encephalopathy, likely secondary to UTI -? patient? wakes up, answers questions appropriately,? oriented to self and place -? will treat with IV antibiotics, IV fluids -? monitor status #? UTI -? positive UA for acute infection -? will treat with IV antibiotics -? follow cultures #? AJ/boderline blood pressure -? likely secondary to? dehydration and acute infection -? will treat with IV fluids -? follow BMP #? acute on chronic anemia -? no evidence of acute bleed -? hemodynamically stable -? will obtain guaiac stool as well as B12 and ferritin -? CBC daily,? threshold transfusion hemoglobin less than 7 ?med rec is still pending, asked the nursing staff? several times for med rec they are working on it DVT ppx:? Lovenox ?inpatient need:IV fluids for AJ as well as IV antibiotics?for uti. Time Spent With Patient Time: Total time managing care of this patient today ____ minutes. Quality Stroke Does the patient have a stroke diagnosis?: No VTE Prior VTE?: No VTE Risk Level:: Medical - moderate - high VTE Device Contraindication: Treatment Not Indicated VTE Drug Contraindication: N/A - Med Ordered
[2022-07-27 15:13] LABS: Iron 26 mcg/dL (30-160); Percent Iron Saturation 18 % (15-50); Total Iron Binding Capacity 144 mcg/dL (228-428); Unsaturated Iron Binding 118 ug/dL
--- NOTE | 2022-07-27 16:04 | MHC.CM.PN ---
CM CONTACTED PT'S SISTER/GUARDIAN DEMETRA AT 3:50PM TO DELIVER IMM, COPY WILL BEMAILED PER REQUEST. DEMETRA REPORTS THE PLAN WILL BE TO RETURN PT TO [facility] ONCE MEDICALLY CLEARED. DEMETRA REPORTS PT SHUFFLE WALKS AT BASELINE AND DOES NOT USE ASSISTIVE DEVICES FOR AMBULATION. DEMETRA ALSO WANTED CM TO KNOW THAT PT HAD BRUISING ALL OVER HER BODY AFTER RECEIVING A HER FIRST COVID BOOSTER THEREFORE DOES NOT WANT PT TO RECEIVE ANY FURTHER COVID VACCINES, PT HAS BEEN VACC X3, GUARDIANSHIP REQUESTED FROM FACILITY AND PCP IS PJ ESCOBEDO.
[2022-07-27 17:05] LABS: OBS1 NEGATIVE (NEGATIVE)
[2022-07-27 17:06] LABS: OBS Int Ctl Valid YES
[2022-07-27] MEDS: 0.9 % Sodium Chloride Flush 3 ML SYRINGE IVFLUSH (20:05)
[2022-07-28] MEDS: cefTRIAXone sodium 1 GM in 0.9 % Sodium Chloride 50 ML IV (01:52)
[2022-07-28 03:21] VITALS: BP 108/54; PULSE 93; RESP 18; TEMP 36.3; O2SAT 99
[2022-07-28] MEDS: Lactated Ringers 1,000 ML 100 ML IVCONT (05:03)
[2022-07-28] MEDS: Omeprazole 40 MG CAPSULE.DR 80 MG PO (05:15)
[2022-07-28] MEDS: Levothyroxine Sodium 25 MCG TABLET PO (05:15)
[2022-07-28 08:00] VITALS: BP 102/57; PULSE 86; RESP 18; TEMP 36.7; O2SAT 99
[2022-07-28] MEDS: rifAXIMin 550 MG TABLET PO ×2 (08:36→19:38)
[2022-07-28] MEDS: Divalproex Sodium 500 MG TABLET.DR PO ×2 (08:36→19:38)
[2022-07-28] MEDS: Atorvastatin Calcium 10 MG TABLET PO (08:36)
[2022-07-28] MEDS: chlorproMAZINE HCl 25 MG TABLET 75 MG PO ×2 (08:36→19:37)
[2022-07-28] MEDS: chlorproMAZINE HCl 100 MG TABLET PO ×2 (08:37→19:37)
[2022-07-28] MEDS: 0.9 % Sodium Chloride Flush 3 ML SYRINGE IVFLUSH ×3 (08:37→19:38)
--- NOTE | 2022-07-28 11:25 | MHC.CM.PN ---
PT NOT YET MEDICALLY CLEARED DCP REMAINS RETURN TO [facility]
[2022-07-28 11:59] LABS: Hematocrit 28.4 % (37.0-47.0); Hemoglobin 9.8 g/dl (12.0-16.0); Mean Corpuscular HGB Conc 34.5 g/dl (31.0-35.0); Mean Corpuscular Hemoglobin 31.8 pg (27.0-33.0); Mean Corpuscular Volume 92.2 fL (80.0-98.0); PLT CLUMP 1; Red Blood Count 3.08 X10*6/uL (4.20-5.50); Red Cell Distribution Width 15.8 % (11.0-16.0)
[2022-07-28 12:00] LABS: White Blood Count 4.9 X10*3/uL (4.8-10.8)
[2022-07-28 12:14] LABS: Anion Gap 14 (12-20); Blood Urea Nitrogen 11 mg/dL (9-16); Calcium 8.6 mg/dL (8.4-10.2); Carbon Dioxide 21 mmol/L (22-29); Chloride 114 mmol/L (96-108); Creatinine Clr Calc Pharmacy 38.9; Estimated Glomerular Filt Rate 48; Glucose Random 146 mg/dL (60-115); Potassium 4.5 mmol/L (3.3-5.1); Sodium 144 mmol/L (135-145)
[2022-07-28 12:37] LABS: Platelet Count 114 X10*3/uL (160-400)
[2022-07-28 13:37] VITALS: BMI 17.9
--- NOTE | 2022-07-28 13:48 | MHC.CLN ---
NUTRITION CONSULT FOR WEIGHT LOSS AND POOR PO. DIET=DIABETIC 1800 KCALS. DOES NOT TAKE DM MEDS. LIKES VANILLA ENSURE. ORDERED BID TO PROVIDE 700 KCALS, 40 G PROTEIN. DX ADULT FAILURE TO THRIVE. SHOWS WEIGHT LOSS X 1.5 YEARS OF -15%. NO RECENT SIGNIFICANT WEIGHT LOSS. UNDERWEIGHT BUT APPEARS WELL NOURISHED. SUSPECT THAT MAKES POOR FOOD CHOICES BASED ON CONVERSATION AND OBSERVATION. CONTINUE CURRENT DIET AND SUPPLEMENT.
[2022-07-28 15:51] VITALS: BP 124/76; PULSE 97; RESP 16; TEMP 36.8; O2SAT 100
[2022-07-28] MEDS: Acetaminophen 325 MG TABLET 650 MG PO (17:51)
[2022-07-28 19:18] VITALS: BP 123/60; PULSE 93; RESP 18; TEMP 36.3; O2SAT 99
--- NOTE | 2022-07-29 | ECG_ITS ---
Test Reason : CP Blood Pressure : / mmHG Vent. Rate : 079 BPM Atrial Rate : 079 BPM P-R Int : 114 ms QRS Dur : 060 ms QT Int : 266 ms P-R-T Axes : 057 046 240 degrees QTc Int : 305 ms Sinus rhythm with Premature atrial complexes with Aberrant conduction Low voltage QRS Nonspecific T wave abnormality Abnormal ECG When compared with ECG of 29-NOV-2017 14:41, Aberrant conduction is now Present Nonspecific T wave abnormality, worse in Inferior leads Nonspecific T wave abnormality now evident in Anterolateral leads QT has shortened Referred By: oJse Cortez Electronically Signed By:Omi Munoz
[2022-07-29] MEDS: cefTRIAXone sodium 1 GM in 0.9 % Sodium Chloride 50 ML IV (01:50)
[2022-07-29 03:43] VITALS: BP 121/66; PULSE 78; RESP 18; TEMP 36.6; O2SAT 99
[2022-07-29] MEDS: Omeprazole 40 MG CAPSULE.DR 80 MG PO (05:50)
[2022-07-29] MEDS: Levothyroxine Sodium 25 MCG TABLET PO (05:51)
[2022-07-29 08:00] VITALS: BP 113/62; PULSE 102; RESP 18; TEMP 36; O2SAT 99
[2022-07-29] MEDS: Ferrous Sulfate 324 MG TABLET.DR PO (08:52)
[2022-07-29] MEDS: Multivitamin TABLET 1 TAB PO (08:52)
[2022-07-29] MEDS: Gabapentin 100 MG CAPSULE PO ×2 (08:52→20:22)
[2022-07-29] MEDS: chlorproMAZINE HCl 25 MG TABLET 75 MG PO ×2 (08:52→20:22)
[2022-07-29] MEDS: Atorvastatin Calcium 10 MG TABLET PO (08:52)
[2022-07-29] MEDS: Divalproex Sodium 500 MG TABLET.DR PO ×2 (08:52→20:22)
[2022-07-29] MEDS: Gabapentin 400 MG CAPSULE PO ×2 (08:52→20:22)
[2022-07-29] MEDS: Acetaminophen 325 MG TABLET 650 MG PO ×2 (08:53→22:10)
[2022-07-29] MEDS: chlorproMAZINE HCl 100 MG TABLET PO ×2 (08:53→20:22)
[2022-07-29] MEDS: rifAXIMin 550 MG TABLET PO ×2 (08:53→20:22)
[2022-07-29] MEDS: 0.9 % Sodium Chloride Flush 3 ML SYRINGE IVFLUSH ×3 (08:53→20:26)
[2022-07-29] MEDS: levoFLOXacin/D5W 500 MG/100 ML PIGGYBACK 100 MG IV (08:53)
--- NOTE | 2022-07-29 10:48 | P.PNIM_ITS ---
Subjective Subjective Date of Service: 07/29/22 Interval History: lethargy, decreased po intake,uti Review of Systems P.o. intake improving, denies any chest pain or shortness of breath or fever or chills or cough Physical Exam Vital Signs: Vital Signs: Last Vital Signs Temp 96.8 F 07/29/22 08:00 Pulse 102 H 07/29/22 08:00 Resp 18 07/29/22 08:00 BP 113/62 07/29/22 08:00 Pulse Ox 99 07/29/22 08:00 O2 Del Method 07/29/22 08:00 BMI result Body Mass Index 17.9 Appearance: awake ,interactive .?frail appearin cvs: rrr, [id number]. res: clear to auscultation ,no rhonchii or wheezing abd: no rebound or guarding ,nt, bs present. ext pulses present , no cyanosis. neuro: moves all extermities Objective Data Active Medications Acetaminophen (Acetaminophen 325 Mg Tablet) 650 mg PO Q6H PRN PRN Reason: Pain, Mild (Pain Scale 1-3) Last Admin: 07/29/22 08:53 Dose: 650 mg Documented By: LINDEN Acetaminophen (Acetaminophen 325 Mg Tablet) 650 mg PO Q4H PRN PRN Reason: Fever Or Pain Al Hydroxide/Mg Hydroxide (Magnesium Hydrox/Alum Hydrox 30 Ml Oral.Susp) 30 ml PO Q4H PRN PRN Reason: Dyspepsia Artificial Tears (Artificial Tears 15 Ml Drops) 1 drop EYE-BOTH Q6H PRN PRN Reason: Dry Eyes Atorvastatin Calcium (Atorvastatin Calcium 10 Mg Tablet) 10 mg PO DAILY [facility] Last Admin: 07/29/22 08:52 Dose: 10 mg Documented By: LINDEN Bisacodyl (Bisacodyl 10 Mg Supp.Rect) 10 mg IN DAILY PRN PRN Reason: Constipation Carbamide Peroxide (Carbamide Peroxide 6.5% Otic 15 Ml Drpbtl) 10 drop EAR-BOTH DAILY PRN PRN Reason: ear wax buildup Chlorpromazine HCl (Chlorpromazine Hcl 25 Mg Tablet) 75 mg PO BID [facility] Last Admin: 07/29/22 08:52 Dose: 75 mg Documented By: LINDEN Chlorpromazine HCl (Chlorpromazine Hcl 100 Mg Tablet) 100 mg PO BID [facility] Last Admin: 07/29/22 08:53 Dose: 100 mg Documented By: LINDEN Divalproex Sodium (Divalproex Sodium 500 Mg Tablet.) 500 mg PO BID [facility] Last Admin: 07/29/22 08:52 Dose: 500 mg Documented By: LINDEN Docusate Sodium (Docusate Sodium 100 Mg Capsule) 200 mg PO BEDTIME [facility] Ferrous Sulfate (Ferrous Sulfate 324 Mg Tablet.) 324 mg PO DAILY [facility] Last Admin: 07/29/22 08:52 Dose: 324 mg Documented By: LINDEN Gabapentin (Gabapentin 100 Mg Capsule) 100 mg PO BID [facility] Last Admin: 07/29/22 08:52 Dose: 100 mg Documented By: LINDEN Gabapentin (Gabapentin 400 Mg Capsule) 400 mg PO BID [facility] Last Admin: 07/29/22 08:52 Dose: 400 mg Documented By: LINDEN Glucose (Glucose Gel 15 Gm Gel..Gram.) 15 gm PO Q15M PRN PRN Reason: Hypoglycemia Guaifenesin (Guaifenesin 100 Mg/5 Ml Liquid) 5 ml PO Q4H PRN PRN Reason: Cough Levofloxacin (Levaquin) 500 mg in 100 mls @ 100 mls/hr IV Q24H [facility] Last Infusion: 07/29/22 10:35 Dose: 0 mls/hr Documented By: LINDEN Levothyroxine Sodium (Levothyroxine Sodium 25 Mcg Tablet) 25 mcg PO DAILY@0600 [facility] Last Admin: 07/29/22 05:51 Dose: 25 mcg Documented By: ETHAN Loperamide HCl (Loperamide Hcl 2 Mg Capsule) 2 mg PO Q8H PRN PRN Reason: Loose Stool Multivitamins/Vitamin C (Multivitamin Tablet) 1 tab PO DAILY [facility] Last Admin: 07/29/22 08:52 Dose: 1 tab Documented By: LINDEN Non-Formulary Medication (Dronabinol [Marinol]) 2.5 mg PO BID [facility] Omeprazole (Omeprazole 40 Mg Capsule.) 80 mg PO DAILY@0630 [facility] Last Admin: 07/29/22 05:50 Dose: 80 mg Documented By: ETHAN Ondansetron HCl (Ondansetron Hcl 4 Mg/2 Ml Vial) 4 mg IVPUSH Q8H PRN PRN Reason: Nausea and Vomiting Polyethylene Glycol (Polyethylene Glycol 3350 17 Gm Powd.Pack) 17 gm PO DAILY PRN PRN Reason: Constipation Propranolol HCl (Propranolol Hcl 10 Mg Tablet) 10 mg PO TID [facility]; Protocol Last Admin: 07/27/22 09:37 Dose: Not Given Documented By: RUBIA Non-Admin Reason: Decreased Blood Pressure Rifaximin (Rifaximin 550 Mg Tablet) 550 mg PO BID [facility] Last Admin: 07/29/22 08:53 Dose: 550 mg Documented By: LINDEN Simethicone (Simethicone 80 Mg Tab.Chew) 80 mg PO Q8H PRN PRN Reason: gas relief Sodium Biphosphate/Sodium Phosphate (Sodium Phosphate,[place]-Dibasic 133 Ml Enema) 118 ml IN DAILY PRN PRN Reason: Constipation Sodium Chloride (0.9 % Sodium Chloride Flush 3 Ml Syringe) 3 ml IVFLUSH QSHIFT [facility] Last Admin: 07/29/22 08:53 Dose: 3 ml Documented By: LINDEN Labs 07/28/22 11:53 07/28/22 11:53 Labs: Laboratory Results - last 24 hr 07/28/22 07/28/22 11:53 11:53 MCV 92.2 MCH 31.8 MCHC 34.5 RDW 15.8 Plt Count 114 L MPV Not Reportable Absolute Nucleated RBC 0.000 Nucleated RBC % (auto) 0.0 Anion Gap 14 Estim Creat Clear Calc 38.9 Estimated GFR 48 Random Glucose 146 H Calcium 8.6 D Microbiology Microbiology Results: Microbiology 07/27/22 Unknown Urine Culture - Final Urine Catheterized - Aguirre Catheter Enterobacter cloacae complex 07/26/22 19:50 Blood Culture - Preliminary Blood - Venous No growth after 48 hours. 07/26/22 19:50 Blood Culture - Preliminary Blood - Venous No growth after 48 hours. Assessment and Plan (1) AJ (acute kidney injury): Status: Acute (2) Acute on chronic anemia: Status: Acute (3) UTI (urinary tract infection): Status: Acute Plan Hospital day :3 57-year-old female with past medical history of bipolar disorder hypothyroidism, dementia diabetes presents [facility] the hospital from [facility] with lethargy 1. lethargy-? no altered mental status /encephalopathy, likely secondary to UTI seems improvin ? patient? wakes up, answers questions appropriately,? oriented to self and place urine culture grew -enterobacter colacae IV antibiotics adjusted to iv levaquin Id eval for above enterobacter colacae uti -further further antibiotics adj ustment. ? 2. UTI-? positive UA for acute infection no fever or leucocytosis urine culture grew -enterobacter colacae IV antibiotics adjusted to iv levaquin Id eval for above enterobacter colacae uti -further further antibiotics adjustmen will treat with IV antibiotic,please see above section. 3. AJ/boderline blood pressure imrpoved with hydration moniter renal function closely 4.? acute on chronic anemia/thrombocytopenia:? dilutional no evidence of acute bleed hemodynamically stable? ,added guaiac stool as well as B12 and ferritin CBC daily 5.FTT: added supplements , encouraged for p.o. intake, nutrition is following. DVT ppx:? Lovenox ?inpatient need: Enterobacter UTI: Adjusted IV antibiotics?for uti. Due to limited option of IV antibiotics need id evaluation-to decide further need of IV antibiotics and duration. Time Spent With Patient Time: Total time managing care of this patient today ____ minutes. Quality Stroke Does the patient have a stroke diagnosis?: No VTE Prior VTE?: No VTE Risk Level:: Medical - moderate - high VTE Device Contraindication: Treatment Not Indicated VTE Drug Contraindication: N/A - Med Ordered
--- NOTE | 2022-07-29 12:25 | P.CDIC_ITS ---
CDI Concurrent Query Documentation Clarification: PHYSICIAN'S DOCUMENTATION REQUEST Date of Query: 07/29/22 1225 Patient Name: Lucero Katz Admit Date: 07/26/22 Dear Doctor, A review of the medical record indicates additional documentation may be needed. Please review below and update the documentation accordingly. Clinical Indicators: Is there a diagnosis that correlates with the findings below: Risk Factors/Clinical Indicators/Treatments Per patient financial specialist consult on 07/28: DX ADULT FAILURE TO THRIVE. SHOWS WEIGHT LOSS X 1.5 YEARS OF -15%. NO RECENT SIGNIFICANT WEIGHT LOSS. Per provider progress notes: Nutritional appearance: frail appearing BMI: 18.0 Height: 5ft 3in Weight: 46kg If possible, please provide an associated diagnosis related to the abnormal BMI, such as: * Malnutrition - (please specify type: mild, moderate, or severe) * Adult failure to thrive * Malnutrition and adult failure to thrive - (please specify type: mild, moderate, or severe) * Other (please specify) * Unable to determine Use of terms such as suspected, likely, concern for, or probable (associated with a specific diagnosis that is being evaluated, monitored, or treated as if it exists) are acceptable and can be coded in the inpatient setting, when documented at the time of discharge. Thank you, Maria Elena Randhawa MS, RN, CCRN Extension: [phone] Please use your independent medical judgment in providing your response. THIS QUERY IS PART OF THE PERMANENT MEDICAL RECORD Provider Response: Other Other Diagnosis: FTT -please see progress note from today.
--- NOTE | 2022-07-29 14:20 | PC.NURSE ---
Spoke with nurse Tigist at [facility] who cares for pt often and states patient is at baseline- A/ox2-3, lucid moments, story tells, at times aware of time but often not.
--- NOTE | 2022-07-29 15:02 | W.PM.IDCN ---
History of Present Illness Data of Consult Service Date: 07/29/22 Requesting physician: Jose Cortez Primary Care Provider: Lalo Mock DO HPI Reason for consult: weakness,enterobacter UTI She presents to SNF with weakness and failure to take po well. She has mood disorder and seizures. She has bloodpressure 70/50 on admission. Urine culture shows enterobacter cloacae. 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 Epilepsy Hypothyroidism Intellectual disability Psychoses Family History Family history: reviewed and not pertinent Social History Social History Household Members: Other Household Members Other:: [facility] Housing: [facility]isted Living Facility Do you presently have visiting nurse or other home services: Yes Alcohol intake: never Patient Tobacco Use Status: Never used Tobacco Advance Directives Date on File: 06/15/20 service: No Current occupational status: retired Meds Allergies Allergy/AdvReac Type Severity Reaction Status Date / Time penicillin V Allergy Unknown Seizure Verified 07/26/22 18:38 Penicillins [PENICILLINS] Allergy Unknown SEIZURES Verified 07/26/22 18:38 Active Medications: Current Medications Acetaminophen (Acetaminophen 325 Mg Tablet) 650 mg PO Q6H PRN PRN Reason: Pain, Mild (Pain Scale 1-3) Last Admin: 07/29/22 08:53 Dose: 650 mg Acetaminophen (Acetaminophen 325 Mg Tablet) 650 mg PO Q4H PRN PRN Reason: Fever Or Pain Al Hydroxide/Mg Hydroxide (Magnesium Hydrox/Alum Hydrox 30 Ml Oral.Susp) 30 ml PO Q4H PRN PRN Reason: Dyspepsia Artificial Tears (Artificial Tears 15 Ml Drops) 1 drop EYE-BOTH Q6H PRN PRN Reason: Dry Eyes Atorvastatin Calcium (Atorvastatin Calcium 10 Mg Tablet) 10 mg PO DAILY [facility] Last Admin: 07/29/22 08:52 Dose: 10 mg Bisacodyl (Bisacodyl 10 Mg Supp.Rect) 10 mg MN DAILY PRN PRN Reason: Constipation Carbamide Peroxide (Carbamide Peroxide 6.5% Otic 15 Ml Drpbtl) 10 drop EAR-BOTH DAILY PRN PRN Reason: ear wax buildup Chlorpromazine HCl (Chlorpromazine Hcl 25 Mg Tablet) 75 mg PO BID [facility] Last Admin: 07/29/22 08:52 Dose: 75 mg Chlorpromazine HCl (Chlorpromazine Hcl 100 Mg Tablet) 100 mg PO BID [facility] Last Admin: 07/29/22 08:53 Dose: 100 mg Divalproex Sodium (Divalproex Sodium 500 Mg Tablet.) 500 mg PO BID [facility] Last Admin: 07/29/22 08:52 Dose: 500 mg Docusate Sodium (Docusate Sodium 100 Mg Capsule) 200 mg PO BEDTIME [facility] Ferrous Sulfate (Ferrous Sulfate 324 Mg Tablet.) 324 mg PO DAILY [facility] Last Admin: 07/29/22 08:52 Dose: 324 mg Gabapentin (Gabapentin 100 Mg Capsule) 100 mg PO BID [facility] Last Admin: 07/29/22 08:52 Dose: 100 mg Gabapentin (Gabapentin 400 Mg Capsule) 400 mg PO BID [facility] Last Admin: 07/29/22 08:52 Dose: 400 mg Glucose (Glucose Gel 15 Gm Gel..Gram.) 15 gm PO Q15M PRN PRN Reason: Hypoglycemia Guaifenesin (Guaifenesin 100 Mg/5 Ml Liquid) 5 ml PO Q4H PRN PRN Reason: Cough Levofloxacin (Levaquin) 500 mg in 100 mls @ 100 mls/hr IV Q24H [facility] Last Infusion: 07/29/22 10:35 Dose: Infused Levothyroxine Sodium (Levothyroxine Sodium 25 Mcg Tablet) 25 mcg PO DAILY@0600 [facility] Last Admin: 07/29/22 05:51 Dose: 25 mcg Loperamide HCl (Loperamide Hcl 2 Mg Capsule) 2 mg PO Q8H PRN PRN Reason: Loose Stool Multivitamins/Vitamin C (Multivitamin Tablet) 1 tab PO DAILY [facility] Last Admin: 07/29/22 08:52 Dose: 1 tab Non-Formulary Medication (Dronabinol [Marinol]) 2.5 mg PO BID [facility] Omeprazole (Omeprazole 40 Mg Capsule.) 80 mg PO DAILY@0630 [facility] Last Admin: 07/29/22 05:50 Dose: 80 mg Ondansetron HCl (Ondansetron Hcl 4 Mg/2 Ml Vial) 4 mg IVPUSH Q8H PRN PRN Reason: Nausea and Vomiting Polyethylene Glycol (Polyethylene Glycol 3350 17 Gm Powd.Pack) 17 gm PO DAILY PRN PRN Reason: Constipation Propranolol HCl (Propranolol Hcl 10 Mg Tablet) 10 mg PO TID [facility]; Protocol Last Admin: 07/27/22 09:37 Dose: Not Given Rifaximin (Rifaximin 550 Mg Tablet) 550 mg PO BID [facility] Last Admin: 07/29/22 08:53 Dose: 550 mg Simethicone (Simethicone 80 Mg Tab.Chew) 80 mg PO Q8H PRN PRN Reason: gas relief Sodium Biphosphate/Sodium Phosphate (Sodium Phosphate,[place]-Dibasic 133 Ml Enema) 118 ml MN DAILY PRN PRN Reason: Constipation Sodium Chloride (0.9 % Sodium Chloride Flush 3 Ml Syringe) 3 ml IVFLUSH QSHIFT [facility] Last Admin: 07/29/22 08:53 Dose: 3 ml Home Medications Medication Instructions Recorded Confirmed Last Taken Type acetaminophen 325 mg tablet 650 mg PO Q4H PRN Fever Or Pain 07/27/22 07/27/22 Unknown History (Tylenol) aluminum-mag hydroxide-simethicone 30 ml PO Q4H PRN Dyspepsia 07/27/22 07/27/22 Unknown History 200 mg-200 mg-20 mg/5 mL oral susp (Jessa-Lanta) atorvastatin 10 mg tablet 10 mg PO DAILY 07/27/22 07/27/22 07/26/22 History bisacodyl 10 mg rectal suppository 10 mg MN DAILY PRN Constipation 07/27/22 07/27/22 Unknown History carbamide peroxide 6.5 % ear drops 10 drp otic (ears) DAILY PRN ear 07/27/22 07/27/22 Unknown History wax buildup chlorpromazine 100 mg tablet 100 mg PO BID 07/27/22 07/27/22 07/26/22 History chlorpromazine 25 mg tablet 75 mg PO BID 07/27/22 07/27/22 07/26/22 History dextrose 40 % oral gel (Glucose 15 g PO Q15M PRN Hypoglycemia 07/27/22 07/27/22 Unknown History Gel) divalproex 500 mg tablet,delayed 500 tab PO BID 07/27/22 07/27/22 07/26/22 History release docusate sodium 100 mg capsule 200 mg PO BEDTIME 07/27/22 07/27/22 07/26/22 History dronabinol 2.5 mg capsule (Marinol) 2.5 mg PO BID 07/27/22 07/27/22 07/26/22 History ferrous sulfate 325 mg (65 mg 325 mg PO DAILY 07/27/22 07/27/22 07/26/22 History iron) tablet,delayed release gabapentin 100 mg capsule 100 mg PO BID 07/27/22 07/27/22 07/26/22 History gabapentin 400 mg capsule 400 mg PO BID 07/27/22 07/27/22 07/26/22 History glucagon 1 mg injection kit 1 mg IM Q15M PRN Hypoglycemia 07/27/22 07/27/22 Unknown History guaifenesin 100 mg/5 mL oral liquid 200 mg PO Q4H PRN Cough 07/27/22 07/27/22 Unknown History ibuprofen 600 mg tablet 600 mg PO TID 07/27/22 07/27/22 07/26/22 History levothyroxine 25 mcg tablet 25 mcg PO DAILY@0600 07/27/22 07/27/22 07/26/22 History light mineral oil-mineral oil (PF) 1 drp ophthalmic (eye) Q12H PRN 07/27/22 07/27/22 Unknown History 0.5 %-0.5 % eye drops,dropperette Dry Eye(S) (Retaine MGD (PF)) loperamide 2 mg capsule 2 mg PO Q8H PRN Loose Stool 07/27/22 07/27/22 Unknown History metformin 500 mg tablet 500 mg PO BID 07/27/22 07/27/22 07/26/22 History multivitamin 1 tab PO DAILY 07/27/22 07/27/22 07/26/22 History omeprazole 40 mg capsule,delayed 80 mg PO DAILY@0630 07/27/22 07/27/22 07/26/22 History release polyethylene glycol 3350 17 gram 17 g PO DAILY PRN Constipation 07/27/22 07/27/22 Unknown History oral powder packet polyvinyl alcohol 1.4 % eye drops 1 drp ophthalmic (eye) Q6H PRN Dry 07/27/22 07/27/22 Unknown History (Artificial Tears (polyvinyl Eyes alcohol)) propranolol 10 mg tablet 10 mg PO TID 07/27/22 07/27/22 07/26/22 History rifaximin 550 mg tablet (Xifaxan) 550 mg PO BID 07/27/22 07/27/22 07/26/22 History simethicone 80 mg chewable tablet 80 mg PO Q8H PRN gas relief 07/27/22 07/27/22 Unknown History sodium phosphates 19 gram-7 118 ml MN DAILY PRN Constipation 07/27/22 07/27/22 Unknown History gram/118 mL enema (Fleet Enema) Physical Exam Vital Signs: Vital Signs: Last Vital Signs Temp 96.8 F 07/29/22 08:00 Pulse 102 H 07/29/22 08:00 Resp 18 07/29/22 08:00 BP 113/62 07/29/22 08:00 Pulse Ox 99 07/29/22 08:00 O2 Del Method 07/29/22 08:00 BMI result Body Mass Index 17.9 Const: General: cooperative HEENT: Head: Yes normal to inspection Face and sinus: Yes normal facial exam Mouth: Normal oral and palatal mucosa present Teeth and gingiva: dentition normal Eyes: General: appearance normal, both eyes and all related structures Pupils: Equal, round and reactive pupils present Resp: Effort & Inspection: normal respiratory effort Cardio: Rate: regular rate Rhythm: regular rhythm GI: Palpation (GI): Soft to palpation and nontender : General: Yes no CVA tenderness Back/Spine/Pelvis: Back: no CVA tenderness Skin: General skin exam: no rashes or lesions noted Neuro: General: moves all extremities Cranial nerves: Yes Equal, round and reactive pupils present Extrem: General: Yes normal to inspection Psych: Other: confusion Results Labs 07/28/22 11:53 07/28/22 11:53 Microbiology Microbiology Results: Microbiology 07/27/22 Unknown Urine Catheterized - Aguirre Catheter Urine Culture - Final Enterobacter cloacae complex 07/26/22 19:50 Blood - Venous Blood Culture - Preliminary No growth after 48 hours. 07/26/22 19:50 Blood - Venous Blood Culture - Preliminary No growth after 48 hours. Assessment and Plan (1) Adult failure to thrive: Status: Acute (2) UTI (urinary tract infection): Status: Acute She has enterobacter in urine She has no bacteremia. It is sensitive to Levaquin. Plan 14 day po ,Levaquin complete 14 d total course. Time Spent With Patient Time: Total time managing care of this patient today ____ minutes.
[2022-07-29 15:05] VITALS: BP 104/55; PULSE 101; RESP 18; TEMP 36.4; O2SAT 99
--- NOTE | 2022-07-29 16:07 | MHC.CM.PN ---
PER HOSPITALIST ID RECOMMENDING LEVAQUIN FOR 14 DAYS, PT TO START ON LEVAQUIN TODAY AND MONITOR 1-2 DAYS PRIOR TO D/CING BACK TO [facility].
[2022-07-29 18:38] VITALS: TEMP 36.9
[2022-07-29 19:09] VITALS: BP 132/65; PULSE 89; RESP 18; TEMP 36.3; O2SAT 100
--- NOTE | 2022-07-29 19:51 | PC.NURSE ---
Dr. Borges placed sitter consult order as a result of day shift report pt wanting to harm self. This RN reevaluated and pt explained that she was craving sweets and the day nurse forgot to give to her. And thats why she felt that way. At this time pt states she does not want to harm self. Pt from [facility] with hx of bipolar disorder, dementia, and psychoses. Dr. Borges notified of new finding and sitter consult cancelled per his order. Nursing supervisor public health nursing notified.
[2022-07-29] MEDS: Docusate Sodium 100 MG CAPSULE 200 MG PO (20:22)
[2022-07-30 05:00] VITALS: BP 106/59; PULSE 123; RESP 20; O2SAT 99
--- NOTE | 2022-07-30 05:27 | PC.NURSE ---
Addendum entered by Mary Grajeda RN 07/30/22 06:03: Pt no longer feeling lightheaded. Pulse continued to be elevated at 125. No no orders from MD. Original Note: Pt got up from bed and stated she was lightheaded. Vitals taken, pulse elevated 123. Pt takes Inderal at home and is not ordered here. Dr. Escudero notified no new orders at this time.
[2022-07-30] MEDS: Omeprazole 40 MG CAPSULE.DR 80 MG PO (05:55)
[2022-07-30] MEDS: Levothyroxine Sodium 25 MCG TABLET PO (05:55)
[2022-07-30] MEDS: Acetaminophen 325 MG TABLET 650 MG PO (06:16)
[2022-07-30 07:35] VITALS: BP 119/67; PULSE 125; RESP 17; TEMP 36.1; O2SAT 100
--- NOTE | 2022-07-30 07:59 | P.DS_ITS ---
DS: Providers Provider Date of Service: 07/30/22 Date of admission: 07/26/22 23:01 Date of discharge: 07/30/22 Primary care physician: Lalo Mock DO Consults: 07/29/22 07:39 Consult to Infectious Diseases Routine Consulting Provider: Deisi Echevarria Reason for consultation: ? enterobacter uti Has provider been notified: No Attending physician on discharge: Jose Cortez DS: Diagnosis Discharge Diagnosis (1) Adult failure to thrive: Status: Acute (2) UTI (urinary tract infection): Status: Acute (3) Lethargy: Status: Acute (4) AJ (acute kidney injury): Status: Acute (5) Acute on chronic anemia: Status: Acute DS: Summary Hospital Course Hospital Course: 57-year-old female with past medical history of bipolar disorder, dementia, diabetes, epilepsy, hypothyroidism, intellectual disability, sent in from [facility] for lethargy and decreased p.o. intake.? patient is awake but? has flat affect, able to wake up and answer questions appropriately.? She is oriente d to self and place. ? She just states that she feels weak, but she denies having any chest pain, no? abdominal pain, no nausea or vomiting, no diarrhea constipation, no urinary symptoms.? ?on arrival to the ED patient found to be hypotensive with blood pressure of 83/41, satting 100% on room air Labs are significant for WBC count 6.1, hemoglobin of 8.2, hematocrit 23.4 sodium of 142, chloride of 112, creatinine of 2.21 with a BUN of 22 with a baseline of 0.8, urine positive for nitrites and WBC as well as leukocyte Estrace Patient started on IV antibiotics will be admitted for further management ?in regards to her blood pressure, nodes from [facility] state the patient is chronically has systolic bloodpressure in high 80s. Hospital course: Patient was admitted because of generalized weakness, UTI, AJ, possible failure to thrive, chronic normocytic anemia. Seems like generalized weakness is due to decreased p.o. intake and UTI: Treated with hydration, antibiotics and encouraged for p.o. intake. Patient seems to be feeling much better now-no fever or leukocytosis, blood cultures negative at 48 hours, urine culture grew Enterobacter and subsequently seen by infectious disease and recommended Levaquin 14 days upon discharge(end date of 08/12/22). Acute kidney injury: Seems to improve with hydration and increase p.o. intake. Chronic normocytic anemia: Iron studies seems mixed type (low iron/acod): already iron supplements, monitor CBC and further workup outpatient. Possible failure to thrive: Due to decreased p.o. intake, p.o. intake improving, in addition consider Ensure(LIKES VANILLA ENSURE) supplements and consider outpatient nutrition to evaluation also. plan: Complete course of antibiotics. Monitor CBC and further workup out patiently for anemia. Monitor BMP due to recent AJ. Patient was encouraged strongly for p.o. intake in addition consider diet supplements as above and outpatient automobile rental agent evaluation. Assessment and plan coordination time spent 50 minute. Time Spent with Patient Time attestation: Total time managing care of this patient today ____ minutes. Discharge coordination time: Greater than 30 minutes Quality: Safe Use of Opioids Does Pt have an Active Cancer Diagnosis on the Problem List?: No Quality: Stroke Does the patient have a stroke diagnosis?: No Physical Exam Vital Signs: Vital Signs: Last Vital Signs Temp 97.0 F 07/30/22 07:35 Pulse 125 H 07/30/22 07:35 Resp 17 07/30/22 07:35 BP 119/67 07/30/22 07:35 Pulse Ox 100 07/30/22 07:35 O2 Del Method 07/30/22 07:35 BMI result Body Mass Index 17.9 ? Appearance: awake ,interactive,?frail appearin ( as per patient's rehab -patient at his baseline) cvs: rrr, [id number]. res: clear to auscultation ,no rhonchii or wheezing abd: no rebound or guarding ,nt, bs present. ext pulses present , no cyanosis. neuro: moves all extermities DS: Data Data Completed and Pending Labs on day of discharge: Preliminary micro results at discharge 07/26/22 19:50 Blood Culture - Preliminary Blood - Venous No growth after 48 hours. 07/26/22 19:50 Blood Culture - Preliminary Blood - Venous No growth after 48 hours. Discharge Plan Discharge Anticipated Discharge Date/Time: 07/30/22 07:48 Patient Disposition: Xfer SNF Discharge Diagnosis: aj, Enterobacter UTI. Referrals: Lalo Mock DO [Primary Care Provider] - 1 Week Discharge Medications: New levofloxacin 500 mg tablet 500 mg PO DAILY Qty: 12 0RF Continued metformin 500 mg tablet 500 mg PO BID atorvastatin 10 mg tablet 10 mg PO DAILY chlorpromazine 100 mg tablet 100 mg PO BID divalproex 500 mg tablet,delayed release (DR/EC) 500 tab PO BID levothyroxine 25 mcg tablet 25 mcg PO DAILY@0600 propranolol 10 mg tablet 10 mg PO TID chlorpromazine 25 mg tablet 75 mg PO BID Xifaxan 550 mg tablet 550 mg PO BID omeprazole 40 mg Capsule,Delayed Release(Dr/Ec) 80 mg PO DAILY@0630 multivitamin Tablet 1 tab PO DAILY glucagon 1 mg Kit 1 mg IM Q15M PRN (Reason: Hypoglycemia) acetaminophen [Tylenol] 325 mg Tablet 650 mg PO Q4H PRN (Reason: Fever Or Pain) loperamide 2 mg Capsule 2 mg PO Q8H PRN (Reason: Loose Stool) polyethylene glycol 3350 17 gram Powder In Packet 17 g PO DAILY PRN (Reason: Constipation) polyvinyl alcohol [Artificial Tears (polyvin alc)] 1.4 % Drops 1 drp OPHTHALMIC (EYE) Q6H PRN (Reason: Dry Eyes) Rx Instructions: instill 1 drop in both eyes dextrose [Glucose Gel] 40 % Gel 15 g PO Q15M PRN (Reason: Hypoglycemia) Rx Instructions: until symptoms of low blood sugar are controlled gabapentin 400 mg Capsule 400 mg PO BID guaifenesin 100 mg/5 mL Liquid 200 mg PO Q4H PRN (Reason: Cough) dronabinol [Marinol] 2.5 mg Capsule 2.5 mg PO BID Rx Instructions: administer before lunch and evening meal/dinner bisacodyl 10 mg Suppository 10 mg NH DAILY PRN (Reason: Constipation) Rx Instructions: use if senna ineffective Fleet Enema 19-7 gram/118 mL Enema 118 ml NH DAILY PRN (Reason: Constipation) carbamide peroxide 6.5 % Drops 10 drp OTIC (EARS) DAILY PRN (Reason: ear wax buildup) Rx Instructions: instill 10 drops in both ears docusate sodium 100 mg Capsule 200 mg PO BEDTIME gabapentin 100 mg Capsule 100 mg PO BID alum-mag hydroxide-simeth [Jessa-Lanta] 200-200-20 mg/5 mL Suspension 30 ml PO Q4H PRN (Reason: Dyspepsia) ferrous sulfate 325 mg (65 mg iron) Tablet,Delayed Release (Dr/Ec) 325 mg PO DAILY simethicone 80 mg Tablet,Chewable 80 mg PO Q8H PRN (Reason: gas relief) Retaine MGD (PF) 0.5-0.5 % Dropperette 1 drp OPHTHALMIC (EYE) Q12H PRN (Reason: Dry Eye(S)) Rx Instructions: instill 1 drop into both eyes Discontinued ibuprofen 600 mg Tablet 600 mg PO TID Discharge Orders: Discharge Order (Routine); Ordered 07/30/22 Ordered By: Jose Cortez Diet: Advance to usual diet Activity on Discharge: As tolerated Stand Alone Forms: Patient Portal Discharge page Care Plan Goals: Patient was admitted because of generalized weakness, UTI, AJ, possible failure to thrive, chronic normocytic anemia. Seems like generalized weakness is due to decreased p.o. intake and UTI: Treated with hydration, antibiotics and encouraged for p.o. intake. Patient seems to be feeling much better now-no fever or leukocytosis, blood cultures negative at 48 hours, urine culture grew Enterobacter and subsequently seen by infectious disease and recommended Levaquin 14 days upon discharge(end date of 08/12/22). Acute kidney injury: Seems to improve with hydration and increase p.o. intake. Chronic normocytic anemia: Iron studies seems mixed type (low iron/acod): already iron supplements, monitor CBC and further workup outpatient. Possible failure to thrive: Due to decreased p.o. intake, p.o. intake improving, in addition consider Ensure(LIKES VANILLA ENSURE) supplements and consider outpatient nutrition to evaluation also. Health Concerns: As above. Plan of Treatment: As above. Assessment: As above.
[2022-07-30] MEDS: Divalproex Sodium 500 MG TABLET.DR PO (08:02)
[2022-07-30] MEDS: Ferrous Sulfate 324 MG TABLET.DR PO (08:02)
[2022-07-30] MEDS: chlorproMAZINE HCl 25 MG TABLET 75 MG PO (08:02)
[2022-07-30] MEDS: Atorvastatin Calcium 10 MG TABLET PO (08:03)
[2022-07-30] MEDS: Gabapentin 400 MG CAPSULE PO (08:03)
[2022-07-30] MEDS: Multivitamin TABLET 1 TAB PO (08:03)
[2022-07-30] MEDS: Gabapentin 100 MG CAPSULE PO (08:03)
[2022-07-30] MEDS: rifAXIMin 550 MG TABLET PO (08:03)
[2022-07-30] MEDS: levoFLOXacin/D5W 500 MG/100 ML PIGGYBACK 100 MG IV (08:04)
[2022-07-30] MEDS: chlorproMAZINE HCl 100 MG TABLET PO (08:17)
[2022-07-30 08:35] LABS: Glucose, Whole Blood 148 mg/dL (60-115)
[2022-07-30 10:19] LABS: COVID-19 Test Negative (Negative); IDNOW Serial# 16C4AD1C
[2022-07-30] MEDS: levoFLOXacin 500 MG TABLET PO (10:23)
--- NOTE | 2022-07-30 11:24 | MHC.CM.PN ---
IMM 07/30/22, PT MEDICALLY CLEARED FOR D/C BACK TO [facility] FOR TRNAPSORTATION. PT'S SISTER/GUARDIAN DEMETRA CONTACTED AT 11:20AM AND AGREEABLE TO PLAN. DEMETRA DID REQUEST PT HAVE TOILET TRAINING AND EDUCATION ON PROPER THOMAS AREA HYGIENE, MESSGE SENT TO [facility] VIA [employer].
--- NOTE | 2022-07-30 11:47 | PC.NURSE ---
IV removed, all belongings with pt. report and paperwork given to EMS. facility contacted to give report. per md administer PO abx additional dose prior to d/c
== END 2022-07-30 11:49 | disposition skilled nursing facility (03) | DRG 690 ==
LOC: HO.ED 19:33 → HO.EDOVER 23:10 → HO.S3 07-27 13:30
PROVIDERS: Admitting Provider Internal Medicine; Emergency Provider Internal Medicine; PCP Hospitalist; Visit Provider Internal Medicine
DX: N39.0 Urinary tract infection, site not specified (principal); Z68.1 Body mass index [BMI] 19.9 or less, adult; G93.49 Other encephalopathy; N17.9 Acute kidney failure, unspecified; F31.9 Bipolar disorder, unspecified; E03.9 Hypothyroidism, unspecified; F03.90 Unspecified dementia, unspecified severity, without behavioral disturbance, psychotic disturbance, mood disturbance, and anxiety; E86.0 Dehydration; D69.6 Thrombocytopenia, unspecified; D63.8 Anemia in other chronic diseases classified elsewhere; E11.9 Type 2 diabetes mellitus without complications; R62.7 Adult failure to thrive; G40.909 Epilepsy, unspecified, not intractable, without status epilepticus; Z20.822 Contact with and (suspected) exposure to COVID-19; Z88.0 Allergy status to penicillin; Z79.84 Long term (current) use of oral hypoglycemic drugs; Z79.890 Hormone replacement therapy; Z79.899 Other long term (current) drug therapy
CPT/HCPCS: 36415; 80048; 80053; 81001; 82272; 82607; 82728; 82746; 82947; 83540; 83605; 85025; 85027; 86850; 86900; 86901; 87040; 87086; 87088; 87186; 87635; 93005; 96360; 96361; 99285; J0696; J1650; J1956

== ENCOUNTER → 2022-10-31 08:35 | Outpatient (BNVA) | payer MEDICARE, MEDICAID, SELFPAY | PROVIDERS: PCP Hospitalist; Visit Provider Urology | DX: R93.41 Abnormal radiologic findings on diagnostic imaging of renal pelvis, ureter, or bladder (principal); Z87.440 Personal history of urinary (tract) infections | CPT/HCPCS: 99202 ==

== ENCOUNTER 2022-12-01 09:12 | Outpatient (REF) | payer MEDICARE, MEDICAID, SELFPAY | END 2022-12-01 09:13 | disposition home or self-care (01) | LOC: HO.CT 09:12 | PROVIDERS: PCP Hospitalist; Visit Provider Urology | DX: Z13.89 Encounter for screening for other disorder (principal) ==

== ENCOUNTER 2022-12-30 06:43 | Day surgery (SDC) | payer MEDICARE, MEDICAID, SELFPAY ==
[2022-12-26 15:15] VITALS: BMI 21.4
--- NOTE | 2022-12-29 10:43 | HO.ANESPROP2 ---
Documented by User: Sandra Cope NP 12/29/22 10:48 HPI - Anesthesia Eval Consult details Narrative: 57yo F for Bilateral Cystoscopy Retrograde Pyelogram, Cystoscopy & Bladder Biopsy, TUR Bladder Tumor, Cystoscopy Bladder Fulguration SNF resident. Sister signs consents. Provider evalverto 11/11/22 - stable [facility] Active Problems Active Problems: All Active Problems (Updated 10/31/22 @ 09:08 by Martha Bond MD) Adult failure to thrive (Acute) UTI (urinary tract infection) (Acute) Anemia in chronic illness (Acute) Acute on chronic anemia (Acute) Lethargy (Acute) AJ (acute kidney injury) (Acute) Recent urinary tract infection (Acute) Abnormal radiologic findings on diagnostic imaging of renal pelvis, ureter, or bladder (Acute) Hematuria (Acute) Psychoses (Acute) Intellectual disability (Acute) Hypothyroidism (Acute) Epilepsy (Acute) Dry eye syndrome of bilateral lacrimal glands (Acute) Diabetes 1.5, managed as type 2 (Acute) Dementia (Acute) Bipolar disorder, unspecified (Acute) Past Medical History Medical History Bipolar disorder, unspecified Dementia Diabetes 1.5, managed as type 2 Dry eye syndrome of bilateral lacrimal glands Epilepsy Hypothyroidism Intellectual disability Psychoses Resides in custodial facility Social History Social History Household Members: Other Household Members Other:: resides at [facility] Housing: Assisted Living Facility Housing Other:: [facility] Are you a primary resident care spec to a significant other at home: No Do you presently have visiting nurse or other home services: Yes ([facility] staff) Alcohol intake: never Patient Tobacco Use Status: Never used Tobacco Use of substances other than those prescribed or required for medical reasons: No Are you DNR?: No Advance Directives: Yes (sister signs consents) Advance Directives Information Provided: Yes Advance Directives on File: Yes Advance Directives Date on File: 06/15/20 Recently lost weight without trying: No Eating poorly because of decreased appetite: No Nutrition Risks: No Nutritional Risk service: No Current occupational status: retired Meds Allergies Allergy/AdvReac Type Severity Reaction Status Date / Time Penicillins [PENICILLINS] Allergy Severe SEIZURES Verified 12/30/22 07:47 Home Medications Medication Instructions Recorded Confirmed Last Taken Type acetaminophen 325 mg tablet 650 mg PO Q4H PRN Fever Or Pain 07/27/22 12/26/22 Unknown History (Tylenol) aluminum-mag hydroxide-simethicone 30 ml PO Q4H PRN Dyspepsia 07/27/22 12/26/22 Unknown History 200 mg-200 mg-20 mg/5 mL oral susp (Jessa-Lanta) atorvastatin 10 mg tablet 10 mg PO DAILY 07/27/22 12/26/22 07/26/22 History bisacodyl 10 mg rectal suppository 10 mg IA DAILY PRN Constipation 07/27/22 12/26/22 Unknown History carbamide peroxide 6.5 % ear drops 10 drp otic (ears) DAILY PRN ear 07/27/22 12/26/22 Unknown History wax buildup chlorpromazine 100 mg tablet 100 mg PO BID 07/27/22 12/26/22 07/26/22 History chlorpromazine 25 mg tablet 75 mg PO BID 07/27/22 12/26/22 07/26/22 History dextrose 40 % oral gel (Glucose 15 g PO Q15M PRN Hypoglycemia 07/27/22 12/26/22 Unknown History Gel) divalproex 500 mg tablet,delayed 500 tab PO BID 07/27/22 12/26/22 07/26/22 History release docusate sodium 100 mg capsule 200 mg PO BEDTIME 07/27/22 12/26/22 07/26/22 History dronabinol 2.5 mg capsule (Marinol) 2.5 mg PO BID 07/27/22 12/26/22 07/26/22 History ferrous sulfate 325 mg (65 mg 325 mg PO DAILY 07/27/22 12/26/22 07/26/22 History iron) tablet,delayed release gabapentin 100 mg capsule 100 mg PO BID 07/27/22 12/26/22 07/26/22 History gabapentin 400 mg capsule 400 mg PO BID 07/27/22 12/26/22 07/26/22 History glucagon 1 mg injection kit 1 mg IM Q15M PRN Hypoglycemia 07/27/22 10/31/22 Unknown History guaifenesin 100 mg/5 mL oral liquid 200 mg PO Q4H PRN Cough 07/27/22 12/26/22 Unknown History levothyroxine 25 mcg tablet 25 mcg PO DAILY@0600 07/27/22 12/26/22 07/26/22 History light mineral oil-mineral oil (PF) 1 drp ophthalmic (eye) Q12H PRN 07/27/22 10/31/22 Unknown History 0.5 %-0.5 % eye drops,dropperette Dry Eye(S) (Retaine MGD (PF)) loperamide 2 mg capsule 2 mg PO Q8H PRN Loose Stool 07/27/22 12/26/22 Unknown History metformin 500 mg tablet 500 mg PO BID 07/27/22 12/26/22 07/26/22 History multivitamin 1 tab PO DAILY 07/27/22 12/26/22 07/26/22 History omeprazole 40 mg capsule,delayed 80 mg PO DAILY@0630 07/27/22 12/26/22 07/26/22 History release polyethylene glycol 3350 17 gram 17 g PO DAILY PRN Constipation 07/27/22 12/26/22 Unknown History oral powder packet polyvinyl alcohol 1.4 % eye drops 1 drp ophthalmic (eye) Q6H PRN Dry 07/27/22 12/26/22 Unknown History (Artificial Tears (polyvinyl Eyes alcohol)) propranolol 10 mg tablet 10 mg PO TID 07/27/22 12/26/22 07/26/22 History rifaximin 550 mg tablet (Xifaxan) 550 mg PO BID 07/27/22 12/26/22 07/26/22 History simethicone 80 mg chewable tablet 80 mg PO Q8H PRN gas relief 07/27/22 12/26/22 Unknown History sodium phosphates 19 gram-7 118 ml IA DAILY PRN Constipation 07/27/22 12/26/22 Unknown History gram/118 mL enema (Fleet Enema) Exam Exam Date and Time: December 29, 2022 1043 Height,Weight and Vital Signs: Height 4 ft 11 in Weight 47.99 kg Pertinent Lab Results Pertinent Lab Results: Laboratory Tests 07/28/22 07/28/22 11:53 11:53 WBC 4.9 Hgb 9.8 L Hct 28.4 L Plt Count 114 L Sodium 144 Potassium 4.5 Chloride 114 H Carbon Dioxide 21 L BUN 11 Creatinine 1.17 Narrative Narrative: EKG 07/2022 Vent. Rate : 079 BPM ? ? Atrial Rate : 079 BPM ?? P-R Int : 114 ms? QRS Dur : 060 ms ? ? QT Int : 266 ms ? ? ? P-R-T Axes : 057 046 240 degrees ?? QTc Int : 305 ms ? Sinus rhythm with Premature atrial complexes with Aberrant conduction Low voltage QRS Nonspecific T wave abnormality Abnormal ECG When compared with ECG of 29-NOV-2017 14:41, Aberrant conduction is now Present Nonspecific T wave abnormality, worse in Inferior leads Nonspecific T wave abnormality now evident in Anterolateral leads QT has shortened Assessment and Plan Assessment Anesthesia Assessment: Chart Reviewed Documented by User: Love Marquez MD 12/30/22 08:49 [facility] Past Medical History Medical History Bipolar disorder, unspecified Dementia Diabetes 1.5, managed as type 2 Dry eye syndrome of bilateral lacrimal glands Epilepsy Hypothyroidism Intellectual disability Psychoses Resides in custodial facility Surgical History History of Problems with Anesthesia: No Social History Social History Household Members: Other Household Members Other:: resides at [facility] Housing: Assisted Living Facility Housing Other:: [facility] Are you a primary resident care spec to a significant other at home: No Do you presently have visiting nurse or other home services: Yes ([facility] staff) Alcohol intake: never Patient Tobacco Use Status: Never used Tobacco Use of substances other than those prescribed or required for medical reasons: No Are you DNR?: No Advance Directives: Yes (sister signs consents) Advance Directives Information Provided: Yes Advance Directives on File: Yes Advance Directives Date on File: 06/15/20 Recently lost weight without trying: No Eating poorly because of decreased appetite: No Nutrition Risks: No Nutritional Risk service: No Current occupational status: retired Meds Allergies Allergy/AdvReac Type Severity Reaction Status Date / Time Penicillins [PENICILLINS] Allergy Severe SEIZURES Verified 12/30/22 07:47 Home Medications Medication Instructions Recorded Confirmed Last Taken Type acetaminophen 325 mg tablet 650 mg PO Q4H PRN Fever Or Pain 07/27/22 12/26/22 Unknown History (Tylenol) aluminum-mag hydroxide-simethicone 30 ml PO Q4H PRN Dyspepsia 07/27/22 12/26/22 Unknown History 200 mg-200 mg-20 mg/5 mL oral susp (Jessa-Lanta) atorvastatin 10 mg tablet 10 mg PO DAILY 07/27/22 12/26/22 07/26/22 History bisacodyl 10 mg rectal suppository 10 mg IA DAILY PRN Constipation 07/27/22 12/26/22 Unknown History carbamide peroxide 6.5 % ear drops 10 drp otic (ears) DAILY PRN ear 07/27/22 12/26/22 Unknown History wax buildup chlorpromazine 100 mg tablet 100 mg PO BID 07/27/22 12/26/22 07/26/22 History chlorpromazine 25 mg tablet 75 mg PO BID 07/27/22 12/26/22 07/26/22 History dextrose 40 % oral gel (Glucose 15 g PO Q15M PRN Hypoglycemia 07/27/22 12/26/22 Unknown History Gel) divalproex 500 mg tablet,delayed 500 tab PO BID 07/27/22 12/26/22 07/26/22 History release docusate sodium 100 mg capsule 200 mg PO BEDTIME 07/27/22 12/26/22 07/26/22 History dronabinol 2.5 mg capsule (Marinol) 2.5 mg PO BID 07/27/22 12/26/22 07/26/22 History ferrous sulfate 325 mg (65 mg 325 mg PO DAILY 07/27/22 12/26/22 07/26/22 History iron) tablet,delayed release gabapentin 100 mg capsule 100 mg PO BID 07/27/22 12/26/22 07/26/22 History gabapentin 400 mg capsule 400 mg PO BID 07/27/22 12/26/22 07/26/22 History glucagon 1 mg injection kit 1 mg IM Q15M PRN Hypoglycemia 07/27/22 10/31/22 Unknown History guaifenesin 100 mg/5 mL oral liquid 200 mg PO Q4H PRN Cough 07/27/22 12/26/22 Unknown History levothyroxine 25 mcg tablet 25 mcg PO DAILY@0600 02/06/0612/26/22 07/26/22 History light mineral oil-mineral oil (PF) 1 drp ophthalmic (eye) Q12H PRN 07/27/22 10/31/22 Unknown History 0.5 %-0.5 % eye drops,dropperette Dry Eye(S) (Retaine MGD (PF)) loperamide 2 mg capsule 2 mg PO Q8H PRN Loose Stool 07/27/22 12/26/22 Unknown History metformin 500 mg tablet 500 mg PO BID 07/27/22 12/26/22 07/26/22 History multivitamin 1 tab PO DAILY 07/27/22 12/26/22 07/26/22 History omeprazole 40 mg capsule,delayed 80 mg PO DAILY@0630 07/27/22 12/26/22 07/26/22 History release polyethylene glycol 3350 17 gram 17 g PO DAILY PRN Constipation 07/27/22 12/26/22 Unknown History oral powder packet polyvinyl alcohol 1.4 % eye drops 1 drp ophthalmic (eye) Q6H PRN Dry 07/27/22 12/26/22 Unknown History (Artificial Tears (polyvinyl Eyes alcohol)) propranolol 10 mg tablet 10 mg PO TID 07/27/22 12/26/22 07/26/22 History rifaximin 550 mg tablet (Xifaxan) 550 mg PO BID 07/27/22 12/26/22 07/26/22 History simethicone 80 mg chewable tablet 80 mg PO Q8H PRN gas relief 07/27/22 12/26/22 Unknown History sodium phosphates 19 gram-7 118 ml IA DAILY PRN Constipation 07/27/22 12/26/22 Unknown History gram/118 mL enema (Fleet Enema) Exam Airway Mallampati Class: II TM Dist: >3cm Neck ROM: Full Loose/Missing/Broken Teeth: No Heart: RRR Lungs: CTA Assessment and Plan Assessment Anesthesia Assessment: Anesthesia Plan Discussed Final Anesthetic Review History of Problems with Anesthesia: No NPO: Yes ASA Class: III Final Preanesthetic Review: Meds/Allgs Chart Reviewed, Consent Obtained/Reviewed and Anes Risks/Benef Reviewed Patient Risk: Intermediate Procedure Risk: Low Anesthetic Plan Anesthetic Plan: GA Disposition: Standard PACU
[2022-12-30] VITALS (7 sets, daily range): BP systolic 115–137; BP diastolic 63–73; PULSE 52–73; RESP 15–20; TEMP 36–36.2; O2SAT 99–100
--- NOTE | ~2022-12-30 | FL_ITS ---
EXAMINATION: XR FLUOROSCOPY WITH IMAGES CLINICAL INFORMATION: Cystoscopy, retrograde pyelogram, bilateral. COMPARISON: None available. TECHNIQUE: Fluoroscopy Supervised By: Dr. Huynh. Fluoroscopy Time: 17.8 seconds. Cumulative Dose: 3.03 mGy. DAP: N/A Images: 11. FINDINGS: Fluoroscopy guidance provided for bilateral retrograde exam. The collecting systems and ureters are normal appearing. There is a calcified pelvic mass probably representing a fibroid. FL/FL guidance in OR IMPRESSION: Fluoroscopy guidance for bilateral retrograde exam.
[2022-12-30] MEDS: Lactated Ringers 1,000 ML 100 ML IVCONT (08:13)
[2022-12-30 08:29] LABS: Glucose, Whole Blood 104 mg/dL (60-115)
--- NOTE | 2022-12-30 09:07 | P.HPSUR_ITS ---
Pre-Procedural Eval Section A Date of Service: 12/30/22 The patient is an INPATIENT: No The History & Physical has been completed within 30 days and I have reviewed it.: No Section B Chief Complaint: Abnormal radiologic findings on diagnostic imaging Details of Present Illness: Lucero is a 57-year-old female who Has medical history of dementia, diabetes mellitus, bipolar disorder, and epilepsy. The patient is a long-term resident of [facility]. The patient is a poor historian. Consent obtained from sister TRINITY Sinclair. The patient was admitted in the hospital in July for UTI and was [facility] during the admission. Urine culture--07/27/2022-- positive for Enterobacter cloacae complex. The patient had a pelvic US done on 10/04/22 which showed a 2.7?1.3?1.3cm echogenic structure. Differential diagnosis include clot versus tumor. Relevant Family History (Specify if Yes): No Allergies: Allergies Allergy/AdvReac Type Severity Reaction Status Date / Time Penicillins [PENICILLINS] Allergy Severe SEIZURES Verified 12/30/22 07:47 Review of Systems Review of Systems Comment: ROS negative other than stated in HPI Exam Surgical H&P Exam: Normal: HEENT, Normal: Heart and Normal: Lungs Plan Diagnosis/Plan: Unchanged I have reviewed the history and physical and performed a pertinent physical examination on my patient. No changes have occurred unless specified. Cystoscopy. Bilateral retrogrades, bladder biopsy/TUR. Discussed risks to include but not limited to, blood in the urine, burning with urination, urgency. Time Spent With Patient Time: Total time managing care of this patient today ____ minutes.
[2022-12-30] MEDS: Phenazopyridine HCL 100 MG TABLET 200 MG PO (10:27)
--- NOTE | 2023-02-09 16:06 | P.OP_ITS ---
Operative Note Operative Note Date of Service: 12/30/22 Narrative: PreOperative Diagnosis:?? history of UTI, abnormal ultrasound findings Post Operative Diagnosis:?? ?history of UTI, abnormal ultrasound findings Procedure: - cystoscopy, bilateral retrograde Surgeon:?Dr Martha Bond Anesthesia:? General Indications for procedure: history of UTI, pelvic US done on 10/04/22 which showed a 2.7?1.3?1.3cm echogenic structure. Procedure: After informed consent was verified the patient was brought to the operating placed on the OR table in supine position.? General Anesthesia was administered per protocol.? The patient was placed in lithotomy position, prepped and draped in the usual sterile fashion.? Safety pause time-out and side of surgery confirmed.? Antibiotics confirmed. A 22 Montserratian cystoscope was inserted transurethrally, The bladder was visualized.? No suspicious lesions visualized. Both ureteric orifices were in normal position. The? right ureteric orifice was cannulated? and a retrograde examination was performed, the right ureter and renal pelvis was within normal limits, the left ureteric orifice was cannulated? and a retrograde examination was performed, the left ureter and renal pelvis was within normal limits, combination of fluoroscopy and direct visualization. The bladder was emptied.? The rigid cystoscope was removed. ? The patient tolerated the procedure well and was brought to the recovery room in stable condition. Complications: None Drains: None
== END 2022-12-30 11:44 | disposition home or self-care (01) ==
PROVIDERS: PCP Hospitalist; Visit Provider Urology
PROC: 0TJB8ZZ Inspection of Bladder, Via Natural or Artificial Opening Endoscopic (ICD-10-PCS; CPT 52005; principal; 2022-12-30 08:40)
DX: R93.41 Abnormal radiologic findings on diagnostic imaging of renal pelvis, ureter, or bladder (principal); Z87.440 Personal history of urinary (tract) infections; R31.9 Hematuria, unspecified; F03.90 Unspecified dementia, unspecified severity, without behavioral disturbance, psychotic disturbance, mood disturbance, and anxiety; E10.8 Type 1 diabetes mellitus with unspecified complications; F31.9 Bipolar disorder, unspecified; G40.909 Epilepsy, unspecified, not intractable, without status epilepticus; Z79.84 Long term (current) use of oral hypoglycemic drugs; Z79.899 Other long term (current) drug therapy; Z88.0 Allergy status to penicillin
CPT/HCPCS: 52005; 82947; 87086; C1758; C1769; J1956; J2250; J2405; J3010; Q9967

== ENCOUNTER → 2022-12-30 06:43 | Outpatient (BNV) | payer MEDICARE, MEDICAID, SELFPAY | PROVIDERS: PCP Hospitalist; Visit Provider Urology | DX: N39.0 Urinary tract infection, site not specified (principal) | CPT/HCPCS: 52000; 74420 ==

== ENCOUNTER 2023-01-27 08:34 | Outpatient (REF) | payer MEDICARE, MEDICAID, SELFPAY ==
--- NOTE | ~2023-01-27 | CT_ITS ---
EXAMINATION: CT ABDOMEN AND PELVIS WITHOUT AND WITH CONTRAST CLINICAL INFORMATION: Abnormal radiologic finding on diagnostic imaging of the renal pelvis COMPARISON: Previous CT of the abdomen and pelvis September 2013 and retrograde exam December 2022 TECHNIQUE: Noncontrast CT of the abdomen and pelvis is performed followed by split bolus contrast-enhanced images using 85 mL Omnipaque 350 contrast.? Postcontrast imaging is performed during the combined nephrogram and excretion phase. Sagittal and coronal reformatted images were obtained on the technologist's workstation for both the precontrast and postcontrast phases. This CT examination was performed using dose optimization techniques as appropriate, variously including the following: *Automated exposure control *Adjustment of mA and/or kV according to patient size (this includes techniques or standardized protocols for targeted exams where dose is matched to indication/reason for exam; i.e. extremities or head) *Use of iterative reconstruction technique DLP: 320 mGy-cm FINDINGS: LUNG BASES: The visualized lung bases are clear. LIVER, GALLBLADDER, AND BILIARY TREE: The liver is normal in size, shape, and attenuation. No focal hepatic lesion or biliary ductal dilatation is present. The gallbladder is unremarkable with no evidence of radiopaque gallstones, gallbladder wall thickening, or obvious pericholecystic inflammatory changes. PANCREAS: Unremarkable. SPLEEN: Unremarkable. ADRENAL GLANDS: Unremarkable. KIDNEYS AND URETERS: The kidneys are normal in size and shape. There is a 3 mm stone in the upper pole of the left kidney. No hydronephrosis. There is a crossing vessel adjacent to the left UVJ region. This appears to represent a mesenteric vessels/branch of the SMV. The collecting systems are otherwise normal. The ureters are not optimally opacified with excreted contrast. The ureters do not appear dilated. BLADDER: Unremarkable. GASTROINTESTINAL TRACT: Stool throughout the colon suggestive of constipation. The small and large bowel are otherwise unremarkable. The appendix is unremarkable. ABDOMINAL WALL: Increased enhancing soft tissue in the supraumbilical region measuring 6 x 8 mm axial image 43 series 8 and question small hernia. Diastasis of the rectus muscle. Low-attenuation in the left inguinal region question representing a patent processes vaginalis and small amount of fluid axial image 77 series 8. Both these findings are new from 2014 exam. LYMPH NODES: Normal. VASCULAR: Unremarkable. PELVIC VISCERA: Fibroid uterus similar to previous exam. OSSEUS STRUCTURES: Degenerative changes of the spine. CT/CT urogram IMPRESSION: 3 mm left upper pole renal stone. Crossing vessel adjacent to the left UPJ region. Constipation. Fibroid uterus. New abdominal wall findings.
[2023-01-27] MEDS: iohexoL 350 MG/ML 100 ML INFUS..BTL 85 ML IV (10:11)
== END 2023-01-27 08:35 | disposition home or self-care (01) ==
LOC: HO.CT 08:34
PROVIDERS: PCP Hospitalist; Visit Provider Hospitalist
DX: R31.9 Hematuria, unspecified (principal); R93.41 Abnormal radiologic findings on diagnostic imaging of renal pelvis, ureter, or bladder; N32.89 Other specified disorders of bladder
CPT/HCPCS: 74178; Q9967

== ENCOUNTER 2023-01-29 14:07 | Outpatient (AMB) | payer MEDICARE, MEDICAID, SELFPAY ==
--- NOTE | 2023-01-29 12:20 | MHC.OFFVIS ---
Intake Intake Visit Reasons: 3w follow up Intake Note: Patient presents today for a follow-up on Post OP Cystoscopy, Bladder Biopsy/TUR.: Meds- Levofloxacin Allergies to Antibiotic- Penicillin Blood Thinner- None First Breaker Feeder Required: No Accompanied by: Self / Same As Patient Allergies Penicillins [PENICILLINS] Allergy (Severe, Verified 01/29/23 14:13) SEIZURES HPI HPI Comments History of Present Illness Details Lucero is a 57-year-old female who presents today to the office for a 3 week follow up. 01/29/2023? She was last seen by me on 10/31/2022. CT urogram was ordered at that time. She has a past medical history significant for dementia, diabetes mellitus, bipolar disorder, and epilepsy. The patient resides at [facility] and presents with an tourist information assistant from that facility. She is a status post Cystoscopy bilateral retrograde done on 12/30/2022, Cystoscopy findings revealed no suspicious bladder lesions visualized. Patient has had CT urogram done on 01/27/2023. I have reviewed the CAT scan of the abdomen/pelvis with and without contrast from 01/27/2023 revealed 3 mm left upper pole renal stone. Crossing vessel adjacent to the left UPJ region. Constipation. Fibroid uterus. New abdominal wall findings. Review of charts: Last visit: 10/31/2022: Has medical history of dementia, diabetes mellitus, bipolar disorder, and epilepsy. The patient is a long-term resident of [facility] at [facility]. The patient is a poor historian. She was admitted in the hospital in July for UTI and was seen by infectious disease during the admission. Urine culture--07/27/2022-- positive for Enterobacter cloacae complex. treated with Levaquin. On review of her chart she had a pelvic US done on 10/04/22 which showed a 2.7?1.3?1.3cm echogenic structure. Differential diagnosis include clot versus tumor.? The patient denies dysyuria. The patient declines providing urine sample for urinalysis. Plan : Will coordinate with [facility] to obtain urine sample to get Urine cytology completed. CT urogram was ordered. Cystoscopy discussed to be scheduled.? ? 01/29/2023?Evaluation today--UA-- Leukocytes: 15 Renetta; blood: negative. 01/29/2023?Plan: Left kidney stone. Follow up in one year with renal US prior. I attached a diet sheet with recommendations for kidney stones prevention. PFSH Medical History Bipolar disorder, unspecified Dementia Diabetes 1.5, managed as type 2 Dry eye syndrome of bilateral lacrimal glands Epilepsy Hypothyroidism Intellectual disability Psychoses Resides in detention facility Family History Father No problems noted. Mother No problems noted. Social History Household Members: Other Household Members Other:: resides at [facility] Housing: Assisted Living Facility Housing Other:: [facility] Are you a primary urgent care physician assistant to a significant other at home: No Do you presently have visiting nurse or other home services: Yes ([facility] staff) Alcohol intake: never Patient Tobacco Use Status: Never used Tobacco Advance Directives Date on File: 06/15/20 service: No Current occupational status: retired Review of Systems Const Details: limited due to pt with dementia, poor historian. Results AMB Urinalysis, Automated UA Leukoctes 15 Renetta/uL Last Edit by Nel Montilla [facility] on 01/29/23 14:22 UA Nitrite Negative Last Edit by Nel Montilla [facility] on 01/29/23 14:22 UA Urobilinogen 0 mg/dL Last Edit by Nel Montilla [facility] on 01/29/23 14:22 UA Protein 0.2 mg/dL Last Edit by Nel Montilla [facility] on 01/29/23 14:22 UA pH 15 Last Edit by Nel Montilla [facility] on 01/29/23 14:22 UA Blood 5.5 Larry/uL Last Edit by Nel Montilla [facility] on 01/29/23 14:22 UA Specific [place] 1.015 Last Edit by Nel Montilla [facility] on 01/29/23 14:22 UA Ketone Negative Last Edit by Nel Montilla [facility] on 01/29/23 14:22 UA Bilirubin 0 mg/dL Last Edit by Nel Montilla [facility] on 01/29/23 14:22 UA Glucose 0 mg/dL Last Edit by TRICE Easton on 01/29/23 14:22 Results Reviewed Results Reviewed: Laboratory Last Values Urine pH (Auto) 15 01/29/23 14:21 Specific [place] (Auto) 1.015 01/29/23 14:21 Urine Protein (Auto) 0.2 mg/dL 01/29/23 14:21 Glucose (UA)(Auto) 0 mg/dL 01/29/23 14:21 Urine Ketones (Auto) Negative 01/29/23 14:21 Urine Blood (Auto) 5.5 Larry/uL 01/29/23 14:21 Urine Nitrite (Auto) Negative 01/29/23 14:21 Urine Bilirubin (Auto) 0 mg/dL 01/29/23 14:21 Urine Urobilinogen (Auto) 0 mg/dL 01/29/23 14:21 Leukocyte Esterase (Auto) 15 Renetta/uL 01/29/23 14:21 Date of Service: 01/27/23 EXAMINATION: CT ABDOMEN AND PELVIS WITHOUT AND WITH CONTRAST? CLINICAL INFORMATION: Abnormal radiologic finding on diagnostic imaging of the renal pelvis? COMPARISON: Previous CT of the abdomen and pelvis September 2013 and retrograde exam December 2022? ? FINDINGS: LUNG BASES: The visualized lung bases are clear. LIVER, GALLBLADDER, AND BILIARY TREE: The liver is normal in size, shape, and attenuation. No focal hepatic lesion or biliary ductal dilatation is present. The gallbladder is unremarkable with no evidence of radiopaque gallstones, gallbladder wall thickening, or obvious pericholecystic inflammatory changes.? PANCREAS: Unremarkable.? SPLEEN: Unremarkable.? ADRENAL GLANDS: Unremarkable.? KIDNEYS AND URETERS: The kidneys are normal in size and shape. There is a 3 mm stone in the upper pole of the left kidney. No hydronephrosis. There is a crossing vessel adjacent to the left UVJ region. This appears to represent a mesenteric vessels/branch of the SMV. The collecting systems are otherwise normal. The ureters are not optimally opacified with excreted contrast. The ureters do not appear dilated. BLADDER: Unremarkable.? GASTROINTESTINAL TRACT: Stool throughout the colon suggestive of constipation. The small and large bowel are otherwise unremarkable. The appendix is unremarkable.? ABDOMINAL WALL: Increased enhancing soft tissue in the supraumbilical region measuring 6 x 8 mm axial image 43 series 8 and question small hernia. Diastasis of the rectus muscle. Low-attenuation in the left inguinal region question representing a patent processes vaginalis and small amount of fluid axial image 77 series 8. Both these findings are new from 2014 exam. LYMPH NODES: Normal. VASCULAR: Unremarkable. PELVIC VISCERA: Fibroid uterus similar to previous exam. OSSEUS STRUCTURES: Degenerative changes of the spine.? IMPRESSION: 3 mm left upper pole renal stone. Crossing vessel adjacent to the left UPJ region. Constipation. Fibroid uterus. New abdominal wall findings. Assessment & Plan Assessment & Plan (1) History of UTI: Code(s): Z87.440 - Personal history of urinary (tract) infections (2) Kidney stone on left side: Code(s): N20.0 - Calculus of kidney Plan Left kidney stone. Follow up in one year with renal US prior. I attached a diet sheet with recommendations for kidney stones prevention. Orders: Orders AMB Urinalysis Automated 01/29/23 Z13.9 - Encounter for screening, unspecified Patient Instructions: The patient had an opportunity to ask questions regarding treatment plan. All questions were answered. Imaging, Laboratory studies and physical exam results were discussed and reviewed in detail. No major barriers to understanding were identified. The patient expressed understanding and agreement with the above treatment plan.? ? ? The patient is aware they should contact our office by phone for worsening of their current condition or the appearance of new symptoms. Compliance is encouraged with any medications and followup testing that is ordered.? ? ? It is a privilege to be allowed the opportunity to participate in the urologic care of your patient. If you have any questions or concerns regarding treatment for the above conditions please do not hesitate to contact me. The office telephone contact is [phone].? ? ? This note is constructed in part using voice recognition software. While every effort has been made to ensure accuracy well driller helper errors may have been included.? ? ? Yours sincerely,? ? ? Martha Bond MD? Coding Level of Care Code Est Pt Level 3 (77356) Diagnoses History of UTI Z87.440 Kidney stone on left side N20.0
== END 2023-01-29 14:31 | disposition home or self-care (01) ==
LOC: HO.HUSH 14:07
PROVIDERS: PCP Hospitalist; Visit Provider Urology
DX: Z87.440 Personal history of urinary (tract) infections (principal); N20.0 Calculus of kidney
CPT/HCPCS: 99213

== ENCOUNTER → 2023-01-29 14:07 | Outpatient (BNVA) | payer MEDICARE, MEDICAID, SELFPAY | PROVIDERS: PCP Hospitalist; Visit Provider Urology | DX: N20.0 Calculus of kidney (principal); Z87.440 Personal history of urinary (tract) infections | CPT/HCPCS: 81003; 99212 ==

== ENCOUNTER 2023-05-18 13:59 | Outpatient (REF) | payer MEDICARE, MEDICAID, SELFPAY ==
--- NOTE | ~2023-05-18 | MM_ITS ---
EXAMINATION: MM SCREENING DIGITAL BREAST TOMOSYNTHESIS, BILATERAL CLINICAL INFORMATION: Screening. Asymptomatic. COMPARISON: Mammography: This study is compared with prior exams dating back to 2017. TECHNIQUE: Digital breast tomosynthesis is performed in both the craniocaudal and mediolateral oblique views along with computer-aided detection (CAD). Synthesized 2D images are generated from the tomosynthesis. FINDINGS: The breasts are heterogeneously dense, which may obscure small masses (ACR BI-RADS breast composition Category c). There are no significant masses, abnormal calcifications, or other abnormalities. There are bilateral, benign secretory calcifications in each breast. MM/MM tomosynthesis screening BI IMPRESSION: No mammographic evidence of malignancy. ASSESSMENT: BI-RADS BI-RADS 2 - Benign Findings RECOMMENDATION: Routine annual mammography screening. 1 year F/U This examination should not preclude the clinical evaluation of a suspicious palpable abnormality. This patient's information was entered into a reminder system with a target due date for their next mammogram.
== END 2023-05-18 14:00 | disposition home or self-care (01) ==
LOC: HO.MAMMO 13:59
PROVIDERS: PCP Hospitalist; Visit Provider Hospitalist
DX: Z12.31 Encounter for screening mammogram for malignant neoplasm of breast (principal)
CPT/HCPCS: 77063; 77067

== ENCOUNTER → 2023-05-18 14:15 | Outpatient (BNV) | payer MEDICARE, MEDICAID, SELFPAY | PROVIDERS: PCP Hospitalist; Visit Provider Radiology Diagnostic Radiology | DX: Z12.31 Encounter for screening mammogram for malignant neoplasm of breast (principal) | CPT/HCPCS: 77063; 77067 ==

== ENCOUNTER 2023-12-14 08:08 | Outpatient (REF) | payer MEDICARE, MEDICAID, SELFPAY ==
--- NOTE | ~2023-12-14 | US_ITS ---
EXAMINATION: US RETROPERITONEAL LIMITED (RENAL ONLY) CLINICAL INFORMATION: Calculus of kidney. COMPARISON: CT urogram 01/27/2023. X-ray KUB 05/04/2010. TECHNIQUE: Real-time imaging of the kidneys. Mildly limited/suboptimal exam due to inability to sustain respirations. FINDINGS: RIGHT KIDNEY: 9.3 x 3.8 x 4.5 cm (SAG x AP x TRV). The kidney is normal in size, contour, and echogenicity. Renal cortical thickness is normal. No calculi or focal parenchymal lesions. No hydronephrosis. LEFT KIDNEY: 9.4 x 4.9 x 5.1 cm (SAG x AP x TRV). The kidney is normal in size, contour, and echogenicity. Renal cortical thickness is normal. No focal parenchymal lesions or hydronephrosis. 0.4 x 0.3 x 0.5 cm nonobstructing calculus is seen in the upper pole. US/US renal BI IMPRESSION: 1. Normal appearance of the right kidney. 2. 0.5 cm nonobstructing calculus in the upper pole of the left kidney.
== END 2023-12-14 08:09 | disposition home or self-care (01) ==
LOC: HO.US 08:08
PROVIDERS: PCP Hospitalist; Visit Provider Urology
DX: N20.0 Calculus of kidney (principal)
CPT/HCPCS: 76775

== ENCOUNTER 2024-02-29 09:53 | Outpatient (AMB) | payer MEDICARE, MEDICAID, SELFPAY ==
--- NOTE | 2024-02-29 09:52 | A.OFFVIS_ITS ---
Intake Visit Reasons: 1y/US Intake Note: Patient presents today for a 1y follow-up/US Meds- Levofloxacin Allergies to Antibiotic- Penicillin Blood Thinner- None Casino Gaming Worker Required: No Accompanied by: Self / Same As Patient Allergies Penicillins [PENICILLINS] Allergy (Severe, Verified 02/29/24 09:53) SEIZURES HPI Comments Details: 02/28/23--Lucero is a 58 year old female, with history of dementia, bipolar and resides at [facility], she is followed for left nephrolithiasis. I reviewed fu renal US, Left kidney stone 5 mm, stable no hydronephrosis. UA negative blood. Pt is asymptomatic, plan- will continue to monitor conservatively. Review of charts: 01/29/2023?Lucero is a 57-year-old female who presents today to the office. The patient resides at [facility] and presents with an server service assistant from that facility. She was last seen by me on 10/31/2022. CT urogram was ordered at that time. She has a past medical history significant for dementia, diabetes mellitus, bipolar disorder, and epilepsy. She is a status post Cystoscopy bilateral retrograde done on 12/30/2022, Cystoscopy findings revealed no suspicious bladder lesions visualized. Patient has had CT urogram done on 01/27/2023. I have reviewed the CAT scan of the abdomen/pelvis with and without contrast from 01/27/2023 revealed 3 mm left upper pole renal stone. Crossing vessel adjacent to the left UPJ region. Constipation. Fibroid uterus. New abdominal wall findings. 10/31/2022: Has medical history of dementia, diabetes mellitus, bipolar disorder, and epilepsy. The patient is a long-term resident of [facility] at [facility]. The patient is a poor historian. She was admitted in the hospital in July for UTI and was seen by infectious disease during the admission. Urine culture--07/27/2022-- positive for Enterobacter cloacae complex. treated with Levaquin. On review of her chart she had a pelvic US done on 10/04/22 which showed a 2.7?1.3?1.3cm echogenic structure. Differential diagnosis include clot versus tumor.? The patient denies dysyuria. The patient declines providing urine sample for urinalysis. Plan: Will coordinate with [facility] to obtain urine sample to get Urine cytology completed. CT urogram was ordered. Cystoscopy discussed to be scheduled.? ? [facility] Medical History Resides in snf facility Diabetes 1.5, managed as type 2 Bipolar disorder, unspecified Intellectual disability Dementia Dry eye syndrome of bilateral lacrimal glands Epilepsy Hypothyroidism Psychoses Family History Father No problems noted. Mother No problems noted. Social History Household Members: Other Household Members Other:: resides at [facility] Housing: Assisted Living Facility Housing Other:: [facility] Are you a primary foster care case manager to a significant other at home: No Do you presently have visiting nurse or other home services: Yes ([facility] staff) Alcohol intake: never Patient Tobacco Use Status: Never used Tobacco Advance Directives Date on File: 06/15/20 service: No Current occupational status: retired Review of Systems Const All systems reviewed & are unremarkable except as noted in HPI and below Reports no additional complaints Eyes Reports no additional complaints ENT Reports no additional complaints Card Reports no additional complaints Resp Reports no additional complaints GI Reports no additional complaints Reports as per HPI Musc Reports no additional complaints Skin/Breast Reports system reviewed and no additional complaints, except as documented Neuro Reports no additional complaints Psych Reports no additional complaints Endo Reports no additional complaints Parag/Lymph Reports no additional complaints Aller/Immun Reports no additional complaints Results AMB Urinalysis, Automated UA Leukoctes 15 Renetta/uL Last Edit by VANI Garnett on 02/29/24 10:01 UA Nitrite Negative Last Edit by VANI Garnett on 02/29/24 10:01 UA Urobilinogen 0.2 mg/dL Last Edit by VANI Garnett on 02/29/24 10:0 1 UA Protein 15 mg/dL Last Edit by VANI Garnett on 02/29/24 10:01 UA pH 6.0 Last Edit by VANI Garnett on 02/29/24 10:01 UA Blood 0 Larry/uL Last Edit by Ana Conley CCM on 02/29/24 10:01 UA Specific [place] 1.020 Last Edit by VANI Garnett on 02/29/24 10: 01 UA Ketone Negative Last Edit by Ana Conley CCM on 02/29/24 10:01 UA Bilirubin 0 mg/dL Last Edit by Ana Conley CCM on 02/29/24 10:01 UA Glucose 0 mg/dL Last Edit by [facility] Conley [facility] on 02/29/24 10:01 Results Reviewed Results Reviewed: Laboratory Last Values Urine pH (Auto) 6.0 02/29/24 10:00 Specific [place] (Auto) 1.020 02/29/24 10:00 Urine Protein (Auto) 15 mg/dL 02/29/24 10:00 Glucose (UA)(Auto) 0 mg/dL 02/29/24 10:00 Urine Ketones (Auto) Negative 02/29/24 10:00 Urine Blood (Auto) 0 Larry/uL 02/29/24 10:00 Urine Nitrite (Auto) Negative 02/29/24 10:00 Urine Bilirubin (Auto) 0 mg/dL 02/29/24 10:00 Urine Urobilinogen (Auto) 0.2 mg/dL 02/29/24 10:00 Leukocyte Esterase (Auto) 15 Renetta/uL 02/29/24 10:00 Date of Service: 12/14/23 US RETROPERITONEAL LIMITED (RENAL ONLY) CLINICAL INFORMATION: Calculus of kidney. COMPARISON: CT urogram 01/27/2023. X-ray KUB 05/04/2010. TECHNIQUE: Real-time imaging of the kidneys. Mildly limited/suboptimal exam due to inability to sustain respirations. FINDINGS: RIGHT KIDNEY: 9.3 x 3.8 x 4.5 cm (SAG x AP x TRV). The kidney is normal in size, contour, and echogenicity. Renal cortical thickness is normal. No calculi or focal parenchymal lesions. No hydronephrosis. LEFT KIDNEY: 9.4 x 4.9 x 5.1 cm (SAG x AP x TRV). The kidney is normal in size, contour, and echogenicity. Renal cortical thickness is normal. No focal parenchymal lesions or hydronephrosis. 0.4 x 0.3 x 0.5 cm nonobstructing calculus is seen in the upper pole. IMPRESSION: 1. Normal appearance of the right kidney. 2. 0.5 cm nonobstructing calculus in the upper pole of the left kidney. Date of Service: 01/27/23 EXAMINATION: CT ABDOMEN AND PELVIS WITHOUT AND WITH CONTRAST? CLINICAL INFORMATION: Abnormal radiologic finding on diagnostic imaging of the renal pelvis? COMPARISON: Previous CT of the abdomen and pelvis September 2013 and retrograde exam December 2022? ? FINDINGS: LUNG BASES: The visualized lung bases are clear. LIVER, GALLBLADDER, AND BILIARY TREE: The liver is normal in size, shape, and attenuation. No focal hepatic lesion or biliary ductal dilatation is present. The gallbladder is unremarkable with no evidence of radiopaque gallstones, gallbladder wall thickening, or obvious pericholecystic inflammatory changes.? PANCREAS: Unremarkable.? SPLEEN: Unremarkable.? ADRENAL GLANDS: Unremarkable.? KIDNEYS AND URETERS: The kidneys are normal in size and shape. There is a 3 mm stone in the upper pole of the left kidney. No hydronephrosis. There is a crossing vessel adjacent to the left UVJ region. This appears to represent a mesenteric vessels/branch of the SMV. The collecting systems are otherwise normal. The ureters are not optimally opacified with excreted contrast. The ureters do not appear dilated. BLADDER: Unremarkable.? GASTROINTESTINAL TRACT: Stool throughout the colon suggestive of constipation. The small and large bowel are otherwise unremarkable. The appendix is unremarkable.? ABDOMINAL WALL: Increased enhancing soft tissue in the supraumbilical region measuring 6 x 8 mm axial image 43 series 8 and question small hernia. Diastasis of the rectus muscle. Low-attenuation in the left inguinal region question representing a patent processes vaginalis and small amount of fluid axial image 77 series 8. Both these findings are new from 2014 exam. LYMPH NODES: Normal. VASCULAR: Unremarkable. PELVIC VISCERA: Fibroid uterus similar to previous exam. OSSEUS STRUCTURES: Degenerative changes of the spine.? IMPRESSION: 3 mm left upper pole renal stone. Crossing vessel adjacent to the left UPJ region. Constipation. Fibroid uterus. New abdominal wall findings. Assessment & Plan Assessment & Plan (1) History of UTI: Code(s): Z87.440 - Personal history of urinary (tract) infections Category: Medical (2) Kidney stone on left side: Code(s): N20.0 - Calculus of kidney Category: Medical Plan Left kidney stone 5 mm, stable no hydronephrosis. UA negative blood. Pt is asymptomatic, plan- will continue to monitor conservatively. Orders: Orders AMB Urinalysis Automated Today Z13.9 - Encounter for screening, unspecified Patient Instructions: This note is constructed in part using voice recognition software. While every effort has been made to ensure accuracy client services manager errors may have been included. Coding Level of Care Code Est Pt Level 3 (14612) Diagnoses History of UTI Z87.440 Kidney stone on left side N20.0
== END 2024-02-29 11:13 | disposition home or self-care (01) ==
LOC: HO.HUSH 09:53
PROVIDERS: Visit Provider Urology
DX: Z87.440 Personal history of urinary (tract) infections (principal); N20.0 Calculus of kidney; Z13.9 Encounter for screening, unspecified
CPT/HCPCS: 99213

== ENCOUNTER → 2024-02-29 09:53 | Outpatient (BNVA) | payer MEDICARE, MEDICAID, SELFPAY | PROVIDERS: Visit Provider Urology | DX: N20.0 Calculus of kidney (principal); Z87.440 Personal history of urinary (tract) infections | CPT/HCPCS: 81003; 99212 ==

== ENCOUNTER 2024-06-13 12:44 | Outpatient (REF) | payer MEDICARE, MEDICAID, SELFPAY | END 2024-06-13 12:45 | disposition home or self-care (01) | LOC: HO.MAMMO 12:44 | PROVIDERS: PCP Hospitalist; Visit Provider Hospitalist | DX: Z12.31 Encounter for screening mammogram for malignant neoplasm of breast (principal) | CPT/HCPCS: 77063; 77067 ==

== ENCOUNTER → 2024-06-13 12:45 | Outpatient (BNV) | payer MEDICARE, MEDICAID, SELFPAY | PROVIDERS: PCP Hospitalist; Visit Provider Internal Medicine | DX: Z12.31 Encounter for screening mammogram for malignant neoplasm of breast (principal) | CPT/HCPCS: 77063; 77067 ==

== ENCOUNTER 2025-04-20 13:48 | Outpatient (REF) | payer MEDICARE, MEDICAID, SELFPAY ==
--- NOTE | ~2025-04-20 | US_ITS ---
EXAMINATION: US KIDNEY BILATERAL HISTORY: N20.0 - Calculus of kidney TECHNIQUE: Real-time grayscale ultrasound imaging of the kidneys was performed and images were reviewed. COMPARISON: Comparison is made with the prior examination dated 12/14/2023. FINDINGS: Right kidney: The right kidney measures 9.4 x 3.6 x 3.8 cm. Renal parenchymal echotexture and thickness are normal. There are no masses. There is no hydronephrosis or renal calculi. Left Kidney: The left kidney measures 9.8 x 5.1 x 4.5 cm. Renal parenchymal echotexture and thickness are normal. There are no masses. There is a 7 x 5 x 5 mm nonobstructing upper pole calculus. There is no hydronephrosis. US/US renal BI IMPRESSION: 7 x 5 x 5 mm left upper pole renal calculus. Otherwise unremarkable renal ultrasound. Electronically signed by: Carlos Gonzalez MD 04/20/2025 02:35 PM EST
--- OUTSIDE RECORDS SUMMARY | 2025-04-20 16:49 | XMS_ITS | Encounter Summary ---
Author Organization [facility] Address [address] [place] [address] Care Team Providers Care Graduate Research Assistant Name Role Phone Lalo Mock MD Primary Care Provider [phone] Encounter Details Date Type Department Care Team (Late st Contact Info) Description 08/22/2024 Lab Requisition [facility] - Main Lab [address] [facility] [place] [address] Lalo Mock MD [address] [place] [address] Dr [address] [place], [place] Type 2 diabetes mellitus without complications (CMS/HCC V24, CMS/HCC V28) Social History Tobacco Use Types Packs/Day Years Used Date Smoking Tobacco: Never Assessed Comments Unknown Sex and Gender Information Value Date Recorded Sex Assigned at Not on file Legal Sex Female 1:16 AM EST Gender Identity Not on file Sexual Orientation Not on file documented as of this encounter Plan of Treatment Not on file documented as of this encounter Procedures Procedure Name Priority Date/Time Associated Diagnosis Comments LIPID PANEL WITH REFLEX TO DIRECT LDL Routine 08/22/2024 11:32 AM EDT Type 2 diabetes mellitus without complications (CMS/HCC) COMPLETE BLOOD COUNT Routine 08/22/2024 11:32 AM EDT Type 2 diabetes mellitus without complications (CMS/HCC) HEMOGLOBIN A1C Routine 08/22/2024 11:32 AM EDT Type 2 diabetes mellitus without complications (CMS/HCC) COMPREHENSIVE METABOLIC PANEL Routine 08/22/2024 11:32 AM EDT Type 2 diabetes mellitus without complications (CMS/HCC) documented in this encounter Results * Hemoglobin A1c (08/22/2024 11:32 AM EDT) [facility] Hemoglobin A1C 6.2 <6.5 % LAB CHEMISTRY METHOD 08/22/2024 9:39 PM EDT [facility] Mean Bld Glu Estim. 131 mg/dL LAB CHEMISTRY METHOD 08/22/2024 9:39 PM EDT [facility] Blood Venous blood specimen / Unknown 08/22/2024 11:32 AM EDT 08/22/2024 1:19 PM EDT us Lalo Mock MD LAB BLOOD ORDERABLES Final Resul t [facility] [address] [place] [address], [place] [phone] * Lipid panel with reflex to direct LDL (08/22/2024 11:32 AM EDT) [facility] Cholesterol 166 0 - 200 mg/dL LAB CHEMISTRY METHOD 08/22/2024 2:01 PM EDT [facility] Triglycerides 57 0 - 150 mg/dL LAB CHEMISTRY METHOD 08/22/2024 2:01 PM T [facility] HDL 84 >=40 mg/dL LAB CHEMISTRY METHOD 08/22/2024 2:01 PM [facility] LDL Calculated 71 0 - 100 mg/dL LAB CHEMISTRY METHOD 08/22/2024 2:01 PM [facility] VLDL Cholesterol Gurjit 11.4 mg/dL LAB CHEMISTRY METHOD 08/22/2024 2:01 PM [facility] Non HDL Chol. (LDL+VLDL) 82 <145 mg/dL LAB CHEMISTRY METHOD 08/22/2024 2:01 PM [facility] Chol/HDL Ratio 2.0 0.0 - 4.4 LAB CHEMISTRY METHOD 08/22/2024 2:01 PM [facility] Blood Venous blood specimen / Unknown 08/22/2024 11:32 AM EDT 08/22/2024 1:41 PM EDT us Lalo Mock MD LAB BLOOD ORDERABLES Final Resul t [facility] [address] [place] [address], [place] [phone] * (ABNORMAL) Comprehensive metabolic panel (08/22/2024 11:32 AM EDT) Sodium 141 133 - 145 mmol/L LAB CHEMISTRY METHOD 08/22/2024 1:58 PM [facility] Potassium 4.8 3.5 - 5.5 mmol/L LAB CHEMISTRY METHOD 08/22/2024 1:58 PM [facility] Chloride 108 96 - 110 mmol/L LAB CHEMISTRY METHOD 08/22/2024 1:58 PM [facility] CO2 25 21 - 32 mmol/L LAB CHEMISTRY METHOD 08/22/2024 1:58 PM [facility] Anion Gap 8 3 - 11 LAB CHEMISTRY METHOD 08/22/2024 1:58 PM [facility] Glucose 114(H) 70 - 100 mg/dL LAB CHEMISTRY METHOD 08/22/2024 1:58 PM [facility] BUN 19 5 - 25 mg/dL LAB CHEMISTRY METHOD 08/22/2024 1:58 PM [facility] Creatinine 1.67(H) 0.50 - 1.10 mg/dL LAB CHEMISTRY METHOD 08/22/2024 1:58 PM [facility] eGFR 35(L) >=60 mL/min/1. 73m2 LAB CHEMISTRY METHOD 08/22/2024 1:58 PM [facility] Comment:Calculation based on the Chronic Kidney Disease Epidemiology Collaboration (CKD-EPI) equation refit without adjustment for race. BUN/Creatinine Ratio 11.4 LAB CHEMISTRY METHOD 08/22/2024 1:58 PM [facility] Calcium 8.8 8.5 - 10.5 mg/dL LAB CHEMISTRY METHOD 08/22/2024 1:58 PM EDT [facility] AST (SGOT) 15 10 - 42 unit/L LAB CHEMISTRY METHOD 08/22/2024 1:58 PM EDT [facility] ALT (SGPT) 17 10 - 60 unit/L LAB CHEMISTRY METHOD 08/22/2024 1:58 PM EDT [facility] Alkaline Phosphatase 69 42 - 121 unit/L LAB CHEMISTRY METHOD 08/22/2024 1:58 PM EDT [facility] Total Protein 6.7 6.0 - 8.0 g/dL LAB CHEMISTRY METHOD 08/22/2024 1:58 PM EDT [facility] Albumin 3.2 3.2 - 5.0 g/dL LAB CHEMISTRY METHOD 08/22/2024 1:58 PM EDT [facility] Total Bilirubin 0.3 0.0 - 1.4 mg/dL LAB CHEMISTRY METHOD 08/22/2024 1:58 PM EDT [facility] Blood Venous blood specimen / Unknown 08/22/2024 11:32 AM EDT 08/22/2024 1:41 PM EDT us Lalo Mock MD LAB BLOOD ORDERABLES Final Resul t [facility] [address] [place] [address], * (ABNORMAL) Complete blood count (08/22/2024 11:32 AM EDT) WBC 5.4 4.8 - 10.8 K/mcL LAB HEMETOLOGY METHOD 08/22/2024 1:19 PM EDT [facility] RBC 3.20(L) 3.80 - 4.80 M/mcL LAB HEMETOLOGY METHOD 08/22/2024 1:19 PM EDT [facility] Hemoglobin 10.1(L) 11.5 - 16.0 g/dL LAB HEMETOLOGY METHOD 08/22/2024 1:19 PM EDT [facility] Hematocrit 29.8(L) 35.0 - 47.0 % LAB HEMETOLOGY METHOD 08/22/2024 1:19 PM EDT [facility] MCV 94.3 79.0 - 98.0 FL LAB HEMETOLOGY METHOD 08/22/2024 1:19 PM EDT [facility] MCH 32.0 27.0 - 32.0 pcg LAB HEMETOLOGY [facility] MCHC 33.9 32.0 - 37.0 g/dL LAB HEMETOLOGY METHOD 08/22/2024 1:19 PM [facility] RDW 14.1 11.0 - 15.0 % LAB [facility]EMETOLOGY METHOD [facility]2024 [facility] Platelets 102(L) 130 - 400 K/mcL LAB HEMETOLOGY METHOD [facility]/22[facility]2024 [facility] MPV 12.4(H) 7.0 - 11.0 FL LAB HEMETOLOGY METHOD 08/22/2024 1:19 PM [facility] NRBC 0.0 <1.0 % LAB HEMETOLOGY METHOD [facility]/22[facility]2024 [facility] NRBC Absolute 0.00 <0.10 K/mcL LAB HEMETOLOGY METHOD 08/22/2024 1:19 PM [facility] Blood Venous blood specimen / Unknown 08/22/2024 11:32 AM EDT 08/22/2024 1:19 PM EDT Lalo Mock MD LAB BLOOD ORDERABLES Final Resul t [facility] [address] [place] [address], documented in this encounter Visit Diagnoses Diagnosis Type 2 diabetes mellitus without complications (CMS/HCC V24, CMS/HCC V28) documented in this encounter Care Teams Graduate Research Assistant Relationship Specialty Start Date End Date Lalo Mock MD [address] [place] [address] Dr [address] [place], [place] PCP - General Internal Medicine 08/22/24 documented as of this encounter
--- OUTSIDE RECORDS SUMMARY | 2025-04-20 16:49 | XMS_ITS | Encounter Summary ---
Author Organization [facility] [address] Address [address] [place] [address] Care Team Providers Care Learning And Development Consultant Name Role Phone Lalo Mock MD Primary Care Provider [phone] Encounter Details Date Type Department Care Team (Late st Contact Info) Description 09/27/2024 Lab Requisition [facility] - Main Lab 299 [facility] [employer] [place] [address] Lalo Mock MD [address] [place] [address] [address] [place], [place] Type 2 diabetes mellitus without complications [...] Procedure Name Priority Date/Time Associated Diagnosis Comments RED - PLAIN Routine 09/27/2024 1:15 PM EDT Type 2 diabetes mellitus without complications (CMS/HCC V24, CMS/HCC V28) THYROID STIMULATING HORMONE Routine 09/27/2024 1:15 PM EDT Type 2 diabetes mellitus without complications (CMS/HCC V24, CMS/HCC V28) THYROXINE FREE Routine 09/27/2024 1:15 PM EDT Type 2 diabetes mellitus without complications (CMS/HCC V24, CMS/HCC V28) AMMONIA Routine 09/27/2024 1:15 PM EDT Type 2 diabetes mellitus without complications (CMS/HCC V24, CMS/HCC V28) VALPROIC ACID LEVEL, TOTAL Routine 09/27/2024 1:15 PM EDT Type 2 diabetes mellitus without complications (CMS/HCC V24, CMS/HCC V28) documented in this encounter Results * Red tube (09/27/2024 1:15 PM EDT) [facility] Extra Tube Hold for add-ons. 09/27/2024 4:[address] [facility] Comment:Auto resulted. Blood Venous blood specimen / Unknown 09/27/2024 1:15 PM EDT 09/27/2024 2:41 PM EDT us Lalo Mock MD LAB BLOOD ORDERABLES Final Resul t Performing Organization Address [facility] Co de Phone Number [facility] [address] [place] [address], [place] [phone] * (ABNORMAL) Ammonia (09/27/2024 1:15 PM EDT) [facility] Ammonia 47(H) 11 - 35 mcmol/L LAB CHEMISTRY METHOD 09/27/2024 3:[address] [facility] Blood Venous blood specimen / Unknown 09/27/2024 1:15 PM EDT 09/27/2024 2:41 PM EDT us Lalo Mock MD LAB BLOOD ORDERABLES Final Resul t Performing Organization Address [facility]/ZIP Co de Phone Number [facility] [address] [place] [address], [place] [phone] * Thyroid stimulating hormone (09/27/2024 1:15 PM EDT) [facility] TSH 1.09 0.40 - 4.00 mcIU/mL LAB CHEMISTRY METHOD 09/28/2024 11:[address] [facility] Blood Venous blood specimen / Unknown 09/27/2024 1:15 PM EDT 09/27/2024 2:41 PM EDT us Lalo Mock MD LAB BLOOD ORDERABLES Final Resul t Performing Organization Address [facility] Co de Phone Number [facility] [address] [place] [address], [place] [phone] * Thyroxine free (09/27/2024 1:15 PM EDT) Pathologist [facility] Free T4 0.82 0.70 - 1.80 ng/dL LAB CHEMISTRY METHOD 09/27/2024 5:[address] [facility] Blood Venous blood specimen / Unknown 09/27/2024 1:15 PM EDT 09/27/2024 2:41 PM EDT us Lalo Mock MD LAB BLOOD ORDERABLES Final Resul t Performing Organization Address [facility] de Phone Number [facility] [address] [place] [address], [place] [phone] * (ABNORMAL) Valproic acid level, total (09/27/2024 1:15 PM EDT) [facility] Valproic Acid, Total 109(H) 50 - 100 mcg/mL LAB CHEMISTRY METHOD 09/27/2024 5:[address] [facility] Blood Venous blood specimen / Unknown 09/27/2024 1:15 PM EDT 09/27/2024 2:41 PM EDT us Lalo Mock MD LAB BLOOD ORDERABLES Final Resul t Performing Organization Address [facility] Co de Phone Number [facility] [address] [place] [address], [place] [phone] documented in this encounter Visit Diagnoses Diagnosis Type 2 diabetes mellitus without complications (CMS/HCC V24, CMS/HCC V28) documented in this encounter Care Teams Learning And Development Consultant Relationship Specialty Start Date End Date Lalo Mock MD [address] [place] [address] [address] [place] PCP - General Internal Medicine 08/22/24 documented as of this encounter
--- OUTSIDE RECORDS SUMMARY | 2025-04-20 16:49 | XMS_ITS | Encounter Summary ---
Author Organization [facility] Address [address] [facility] [address] [place] [address] Phone Care Team Providers Care Onshore Diver Name Role Phone Lalo Mock DO Primary Care Provider [phone] Encounter Details Date Type Department Care Team (Late st Contact Info) Description 09/20/2018 Ancillary Orders [facility] [address] [place] [address] Helga Yin NP [address] [place] [address] Pelvic mass in female Social History Tobacco Use Types Packs/Day Years Used Date Smoking Tobacco: Never Smokeless Tobacco: Never Alcohol Use Standard Drinks/Week Comments No 0 (1 standard drink = 0.6 oz pur e alcohol) Comments No Sex and Gender Information Value Date Recorded Sex Assigned at Not on file Legal Sex Female 9:39 PM EDT Gender Identity Not on file Sexual Orientation Not on file 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 Heterogeneous uterus with multiple masses consistent with fibroids as described above. 2. Normal appearing endometrium. 3. Normal appearing right ovary. 4. Simple appearing left ovarian cyst as described above. It is overall stable in appearance compared to previous films. The previously seen left hydrosalpinx was not visualized today. 5. There is no free fluid. . Narrative 09/22/2018 5:46 PM EDT INDICATION: F/U left ovarian cyst, left hydrosalpinx EXAM DATE: 09/20/2018 10:32 AM GYNECOLOGICAL ULTRASONOGRAPHY: Uterus Volume: 75.41 ml Retroflexed Heterogeneous with several masses consistent with fibroids. Length: 6.12 cm Height: 4.35 cm Width: 5.41 cm Fibroid 1 Posterior, calcified Length: 2.79 cm Height: shadow Width: 2.77 cm Fibroid 2 Left Length: 2.31 cm Height: 1.74 cm Width: 2.01 cm Fibroid 3 Left lateral Length: 1.42 cm Height: 1.11 cm Width: 1.58 cm Fibroid 4 Left lateral Length: 1.23 cm Height: 1.01 cm Width: 1.78 cm Endometrial Thickness: 1.94 mm Appears grossly normal. Right Ovary Volume: 0.44 ml Appears grossly normal. No adnexal masses seen. Length: 0.54 cm Height: 2.01 cm Width: 0.77 cm Left Ovary Volume: 1.80 ml Contains a cyst. Fluid noted within peristalsing bowel. No fluid collections or adnexal masses seen. Length: 2.69 cm Height: 1.47 cm Width: 0.87 cm Cyst Simple, previously = 0.45 x 0.45 x 0.44 Length: 0.53 cm Height: 0.51 cm Width: 0.57 cm Cul de Sac Fluid: No free fluid. COMMENTS: Transvaginal scanning was performed. Procedure Note Bird Burks MD - 09/22/2018 INDICATION: F/U left ovarian cyst, left hydrosalpinx EXAM DATE: 09/20/2018 10:32 AM GYNECOLOGICAL ULTRASONOGRAPHY: Uterus Volume: 75.41 ml Retroflexed Heterogeneous with several masses consistent with fibroids. Length: 6.12 cm Height: 4.35 cm Width: 5.41 cm Fibroid 1 Posterior, calcified Length: 2.79 cm Height: shadow Width: 2.77 cm Fibroid 2 Left Length: 2.31 cm Height: 1.74 cm Width: 2.01 cm Fibroid 3 Left lateral Length: 1.42 cm Height: 1.11 cm Width: 1.58 cm Fibroid 4 Left lateral Length: 1.23 cm Height: 1.01 cm Width: 1.78 cm Endometrial Thickness: 1.94 mm Appears grossly normal. Right Ovary Volume: 0.44 ml Appears grossly normal. No adnexal masses seen. Length: 0.54 cm Height: 2.01 cm Width: 0.77 cm Left Ovary Volume: 1.80 ml Contains a cyst. Fluid noted within peristalsing bowel. No fluid collections or adnexal masses seen. Length: 2.69 cm Height: 1.47 cm Width: 0.87 cm Cyst Simple, previously = 0.45 x 0.45 x 0.44 Length: 0.53 cm Height: 0.51 cm Width: 0.57 cm Cul de Sac Fluid: No free fluid. COMMENTS: Transvaginal scanning was performed. IMPRESSION: 1. Heterogeneous uterus with multiple masses consistent with fibroids asdescribed above. 2. Normal appearing endometrium. 3. Normal appearing right ovary. 4. Simple appearing left ovarian cyst as described above. It is overallstable in appearance compared to previous films. The previously seen lefthydrosalpinx was not visualized today. 5. There is no free fluid. . Helga Yin SALES ANALYST IMG US PELVIS Final Result documented in this encounter Visit Diagnoses Diagnosis Pelvic mass in female documented in this encounter Care Teams Onshore Diver Relationship Specialty Start Date End Date Lalo Mock DO [address] [place] [address] PCP - General 06/18/17 documented as of this encounter Additional Source Comments The information contained in this document represents components of the legal health record. It is not the complete legal health record.[facility]
--- OUTSIDE RECORDS SUMMARY | 2025-04-20 16:49 | XMS_ITS | Encounter Summary ---
Author Organization [facility] Address [address] [place] [address] Care Team Providers Care Director Critical Care Name Role Phone Lalo Mock MD Primary Care Provider [phone] Encounter Details Date Type Department Care Team (Late st Contact Info) Description 12/26/2024 Lab Requisition [facility] - Main Lab [address] [facility] [place] [address] Lalo Mock MD [address] [place] [address] [address] [place], [place] Encounter for other specified special examinations; Type 2 diabetes mellitus without complications (CMS/HCC [...] PANEL WITH REFLEX TO DIRECT LDL Routine 12/26/2024 12:15 PM EDT Encounter for other specified special examinations Type 2 diabetes mellitus without complications (CMS/HCC V24, CMS/HCC V28) CBC WITH AUTO DIFFERENTIAL Routine 12/26/2024 12:15 PM EDT Encounter for other specified special examinations Type 2 diabetes mellitus without complications (CMS/HCC V24, CMS/HCC V28) CBC AND DIFFERENTIAL Routine 12/26/2024 12:15 PM EDT Encounter for other specified special examinations Type 2 diabetes mellitus without complications (CMS/HCC V24, CMS/HCC V28) HEMOGLOBIN A1C Routine 12/26/2024 12:15 PM EDT Encounter for other specified special examinations Type 2 diabetes mellitus without complications ([facility]/HCC V24, [facility] V28) COMPREHENSIVE METABOLIC PANEL Routine 12/26/2024 12:15 PM EDT Encounter for other specified special examinations Type 2 diabetes mellitus without complications ([facility]/HCC V24, [facility] V28) documented in this encounter Results * (ABNORMAL) CBC auto differential (12/26/2024 12:15 PM EDT) [facility] WBC 4.7(L) 4.8 - 10.8 K/mcL LAB HEMETOLOGY METHOD 12/26/2024 2:[address] [facility] RBC 3.20(L) 3.80 - 4.80 M/mcL LAB HEMETOLOGY METHOD 12/26/2024 2:[address] [facility] Hemoglobin 9.9(L) 11.5 - 16.0 g/dL LAB HEMETOLOGY METHOD 12/26/2024 2:[address] [facility] Hematocrit 29.7(L) 35.0 - 47.0 % LAB HEMETOLOGY METHOD 12/26/2024 2:[address] [facility] MCV 93.7 79.0 - 98.0 FL LAB HEMETOLOGY METHOD 12/26/2024 2:[address] [facility] MCH 31.2 27.0 - 32.0 pcg LAB HEMETOLOGY METHOD 12/26/2024 2:[address] [facility] MCHC 33.3 32.0 - 37.0 g/dL LAB HEMETOLOGY METHOD 12/26/2024 2:[address] [facility] RDW 13.9 11.0 - 15.0 % LAB HEMETOLOGY METHOD 12/26/2024 2:[address] [facility] Platelets 143 130 - 400 K/mcL LAB HEMETOLOGY METHOD 12/26/2024 2:[address] [facility] MPV 12.0(H) 7.0 - 11.0 FL LAB HEMETOLOGY METHOD 12/26/2024 2:[address] [facility] NRBC 0.0 <1.0 % LAB HEMETOLOGY METHOD 12/26/2024 2:[address] [facility] NRBC Absolute 0.00 <0.10 K/mcL LAB HEMETOLOGY METHOD 12/26/2024 2:[address] [facility] Neutrophils Relative 42.8 % LAB HEMETOLOGY METHOD 12/26/2024 2:[address] [facility] Lymphocytes Relative 43.7 % [facility] Monocytes Relative 11.0 % LAB HEMETOLOGY METHOD 12/26/2024 2:[address] [facility] Eosinophils Relative 1.9 % LAB HEMETOLOGY METHOD 12/26/2024 2:[address] [facility] Basophils Relative 0.4 % LAB [facility] Immature Granulocytes Relative 0.2 % LAB HEMETOLOGY METHOD 12/26/2024 2:[address] [facility] Neutrophils Absolute 1.99 1.50 - 7.00 K/mcL LAB HEMETOLOGY METHOD 12/26/2024 2:[address] [facility] Lymphocytes Absolute 2.03 1.00 - 5.00 K/mcL LAB HEMETOLOGY METHOD 12/26/2024 2:[address] [facility] Monocytes Absolute 0.51 0.20 - 1.00 K/mcL LAB [facility]OLOGY METHOD [facility] Eosinophils Absolute 0.09 0.00 - 0.50 K/mcL LAB HEMETOLOGY METHOD 12/26/2024 2:[address] [facility] Basophils Absolute 0.02 0.00 - 0.20 K/[facility] LAB HEMETOLOGY METHOD 12/26/2024 2:[address] [facility] Immature Granulocytes Absolute 0.01 0.00 - 0.03 K/[facility] LAB HEMETOLOGY METHOD 12/26/2024 2:[address] [facility] Blood Venous blood specimen / Unknown 12/26/2024 12:15 PM EDT 12/26/2024 2:02 PM EDT us Lalo Mock MD LAB BLOOD ORDERABLES Final Resul t Performing Organization Address [facility]/ZIP Co de Phone Number [facility] [address] [place] [address], [place] [phone] * Hemoglobin A1c (12/26/2024 12:15 PM EDT) Hemoglobin A1C 6.3 <6.5 % LAB CHEMISTRY METHOD 12/26/2024 8:[address] [facility] Mean Bld Glu Estim. 134 mg/dL LAB CHEMISTRY METHOD 12/26/2024 8:[address] [facility] Blood Venous blood specimen / Unknown 12/26/2024 12:15 PM EDT 12/26/2024 2:02 PM EDT us Lalo Mock MD LAB BLOOD ORDERABLES Final Resul t Performing Organization Address City/[facility]/ZIP Co de Phone Number [facility] [address] [place] [address], [place] [phone] * Lipid panel with reflex to direct LDL (12/26/2024 12:15 PM EDT) Cholesterol 189 0 - 200 mg/dL LAB CHEMISTRY METHOD 12/26/2024 3:[address] [facility] Triglycerides 71 0 - 150 mg/dL LAB CHEMISTRY METHOD 12/26/2024 3:[address] [facility] HDL 84 >=40 mg/dL LAB CHEMISTRY METHOD 12/26/2024 3:[address] [facility] LDL Calculated 91 0 - 100 mg/dL LAB CHEMISTRY METHOD 12/26/2024 3:[address] [facility] VLDL Cholesterol Gurjit 14.2 mg/dL LAB CHEMISTRY METHOD 12/26/2024 3:[address] [facility] Non HDL Chol. (LDL+VLDL) 105 <145 mg/dL LAB CHEMISTRY METHOD 12/26/2024 3:[address] [facility] Chol/HDL Ratio 2.3 0.0 - 4.4 LAB CHEMISTRY METHOD 12/26/2024 3:[address] [facility] Blood Venous blood specimen / Unknown 12/26/2024 12:15 PM EDT 12/26/2024 2:02 PM EDT us Lalo Mock MD LAB BLOOD ORDERABLES Final Resul t [facility] [address] [place] [address], [place] [phone] * (ABNORMAL) Comprehensive metabolic panel (12/26/2024 12:15 PM EDT) Sodium 138 133 - 145 mmol/L LAB CHEMISTRY METHOD 12/26/2024 3:[address] [facility] Potassium 4.8 3.5 - 5.5 mmol/L LAB CHEMISTRY METHOD 12/26/2024 3:[address] [facility] Chloride 108 96 - 110 mmol/L LAB CHEMISTRY METHOD 12/26/2024 3:[address] [facility] CO2 27 21 - 32 mmol/L LAB CHEMISTRY METHOD 12/26/2024 3:43 PM [facility] Anion Gap 3 3 - 11 LAB CHEMISTRY METHOD 12/26/2024 3:43 PM [facility] Glucose 139(H) 70 - 100 mg/dL LAB CHEMISTRY METHOD 12/26/2024 3:43 PM [facility] BUN 17 5 - 25 mg/dL LAB CHEMISTRY METHOD 12/26/2024 3:43 PM [facility] Creatinine 1.54(H) 0.50 - 1.10 mg/dL LAB CHEMISTRY METHOD 12/26/2024 3:43 PM [facility] eGFR 39(L) >=60 mL/min/1. 73m2 LAB CHEMISTRY METHOD 12/26/2024 3:43 PM [facility] Comment:Calculation based on the Chronic Kidney Disease Epidemiology Collaboration (CKD-EPI) equation refit without adjustment for race. BUN/Creatinine Ratio 11.0 LAB CHEMISTRY METHOD 12/26/2024 3:43 PM [facility] Calcium 9.0 8.5 - 10.5 mg/dL LAB CHEMISTRY METHOD 12/26/2024 3:43 PM [facility] AST (SGOT) 11 10 - 42 unit/L LAB CHEMISTRY METHOD 12/26/2024 3:43 PM [facility] ALT (SGPT) 15 10 - 60 unit/L LAB CHEMISTRY METHOD 12/26/2024 3:43 PM [facility] Alkaline Phosphatase 72 42 - 121 unit/L LAB CHEMISTRY METHOD 12/26/2024 3:43 PM [facility] Total Protein 6.7 6.0 - 8.0 g/dL LAB CHEMISTRY METHOD 12/26/2024 3:43 PM [facility] Albumin 3.1(L) 3.2 - 5.0 g/dL LAB CHEMISTRY METHOD 12/26/2024 3:43 PM [facility] Total Bilirubin 0.3 0.0 - 1.4 mg/dL LAB CHEMISTRY METHOD 12/26/2024 3:[address] [facility] Blood Venous blood specimen / Unknown 12/26/2024 12:15 PM EDT 12/26/2024 2:02 PM EDT us Lalo Mock MD LAB BLOOD ORDERABLES Final Resul t [facility] [address] [place] [address], documented in this encounter Visit Diagnoses Diagnosis Encounter for other specified special examinations Type 2 diabetes mellitus without complications (CMS/HCC V24, CMS/HCC V28) documented in this encounter Care Teams Director Critical Care Relationship Specialty Start Date End Date Lalo Mock MD [address] [place] [address] Dr [address] [place], [place] PCP - General Internal Medicine 08/22/24 documented as of this encounter
--- OUTSIDE RECORDS SUMMARY | 2025-04-20 16:49 | XMS_ITS | Clinical Summary ---
Author Organization [address] [facility] Address [address] [place] [address] Phone Care Team Providers Care Operator Supply Name Role Phone Lalo Mock MD Primary Care Provider [phone] Social History Tobacco Use Types Packs/Day Years Used Date Smoking Tobacco: Never Assessed Comments Unknown Sex and Gender Information Value Date Recorded Sex Assigned at Not on file Legal Sex Female 1:16 AM EST Gender Identity Not on file Sexual Orientation Not on file Plan of Treatment Health Maintenance Due Date Last Done Comments Breast Cancer Screening 1965 Colorectal Cancer Screening: Colonoscopy 1965 DTaP,Tdap,and Td Vaccines (1 - Tdap) 1985 Hepatitis B Vaccines (1 of 3 - 19+ 3-dose series) 1985 Pneumococcal Vaccine: 50+ Years (1 of 2 - PCV) 1985 Cervical Cancer Screening: P ap Smear 1987 Zoster Vaccines (1 of 2) 2016 HIV Screening 05/18/2022 Hepatitis C Screening 05/18/2022 Medicare Annual Wellness Visit 05/18/2022 Social Influencers of Health Screening 05/18/2022 Depression Screening 06/15/2024 COVID-19 Vaccine (1 - 2023-2 5 season) 2025 Influenza Vaccine (#1) 2025 Cholesterol Screening (Lipid Panel) 12/26/2029 12/26/2024, 08/22/2024 RSV Immunization Adult Patients (1 - 1-dose 75+ series) 2041 HIB Vaccines Aged Out No longer eligi ble based on patient's age to complete this topic HPV Vaccines Aged Out No longer eligi ble based on patient's age to complete this topic Hepatitis A Vaccines Aged Out No long er eligible based on patient's age to complete this topic IPV Vaccines Aged Out No longer eligi ble based on patient's age to complete this topic MMR Vaccines Aged Out No longer eligi ble based on patient's age to complete this topic Meningococcal ACWY Vaccine Aged Out N o longer eligible based on patient's age to complete this topic Meningococcal B Vaccine Aged Out No l onger eligible based on patient's age to complete this topic RSV Immunization Patients Under 20 months Aged Out No longer eligible b ased on patient's age to complete this topic Varicella Vaccines Aged Out No longer eligible based on patient's age to complete this topic Procedures Procedure Name Priority Date/Time Associated Diagnosis Comments LIPID PANEL WITH REFLEX TO DIRECT LDL Routine 12/26/2024 12:15 PM EDT Encounter for other specified special examinations Type 2 diabetes mellitus without complications ([facility] V24, [facility] V28) from Last 3 Months or Most Recently Relevant to Health Maintenance Results * Lipid panel with reflex to direct LDL (12/26/2024 12:15 PM EDT) Cholesterol 189 0 - 200 mg/dL LAB CHEMISTRY METHOD 12/26/2024 3:51 PM [facility] Triglycerides 71 0 - 150 mg/dL LAB CHEMISTRY METHOD 12/26/2024 3:51 PM [facility] HDL 84 >=40 mg/dL LAB CHEMISTRY METHOD 12/26/2024 3:51 PM [facility] LDL Calculated 91 0 - 100 mg/dL LAB CHEMISTRY METHOD 12/26/2024 3:51 PM [facility] VLDL Cholesterol Gurjit 14.2 mg/dL LAB CHEMISTRY METHOD 12/26/2024 3:51 PM [facility] Non HDL Chol. (LDL+VLDL) 105 <145 mg/dL LAB CHEMISTRY METHOD 12/26/2024 3:51 PM [facility] Chol/HDL Ratio 2.3 0.0 - 4.4 LAB CHEMISTRY METHOD 12/26/2024 3:51 PM [facility] Blood Venous blood specimen / Unknown 12/26/2024 12:15 PM EDT 12/26/2024 2:02 PM EDT Lalo Mock MD LAB BLOOD ORDERABLES Final Resul t [facility] ([facility] [address] [place] [address], [place] [phone] from Last 3 Months or Most Recently Relevant to Health Maintenance Insurance MEDICARE Care Teams Operator Supply Relationship Specialty Start Date End Date Lalo Mock MD [address] [place], [place] PCP - General Internal Medicine 08/22/24
--- OUTSIDE RECORDS SUMMARY | 2025-04-20 16:49 | XMS_ITS | Clinical Summary ---
Author Organization [facility] Address [address] [place] [address] [place] [address] Phone Care Team Providers Care Sewer Pipe Offbearer Name Role Phone Lalo Mock DO Primary Care Provider [phone] Allergies Active Allergy Reactions Criticality Noted Date Comments Penicillins 10/12/2017 Medications loperamide (IMODIUM) 2 mg capsule Take 2 mg by mouth every 8 (eight) hours as needed for diarrhea. Active carbamide peroxide (DEBROX) 6.5 % otic solution as directed Otic Active monobasic and dibasic sodium phosphates (FLEET ENEMA) 19-7 gram/118 mL Enem as directed Rectal Active bisacodyl (DULCOLAX) 10 mg suppository 1 suppository as needed Rectal Once a day Active acetaminophen (TYLENOL) 325 mg tablet Take 650 mg by mouth every 4 (four) hours as needed. Active docusate sodium (COLACE) 100 MG capsule Take 100 mg by mouth daily as needed. Active gabapentin (NEURONTIN) 400 MG capsule Take 400 mg by mouth 3 (three) times a day. Active propranolol (INDERAL) 10 MG immediate release tablet Take 20 mg by mouth 3 (three) times a day. Active metFORMIN (GLUCOPHAGE) 500 MG tablet Take 500 mg by mouth 2 (two) times a day with meals. Active divalproex (DEPAKOTE ER) 250 MG ER 24 hr tablet Take 500 mg by mouth 2 (two) times a day. as directed Orally Active chlorproMAZINE (THORAZINE) 25 MG tablet Take 25 mg by mouth 2 (two) times a day. Active simethicone (MYLICON) 80 mg chewable tablet 1 tablet after meals and at bedtime as needed Orally tid Active ferrous sulfate 325 mg (65 mg iron) CpER Orally Active atorvastatin (LIPITOR) 10 MG tablet Take 10 mg by mouth daily. Active chlorproMAZINE (THORAZINE) 100 MG tablet Take 100 mg by mouth 2 (two) times a day. Active sodium phosphate,mono-d ibasic (FLEET ENEMA RECT) Place rectally daily as needed (constipation). Active glucagon (GLUCAGEN) 1 mg/mL SolR every 15 (fifteen) minutes as needed (hypoglycemia). Active dextrose (GLUCOSE GEL ORAL) Take by mouth every 15 (fifteen) minutes as needed. Active guaiFENesin (ROBITUSSIN) 100 mg/5 mL syrup Take 200 mg by mouth every 4 (four) hours as needed for cough. Active levothyroxine (TIROSINT) 25 mcg Cap 25 mcg daily. Active omeprazole (PRILOSEC) 40 MG capsule Take 80 mg by mouth daily. Active polyethylene glycol (MIRALAX) 17 gram packet Take 17 g by mouth daily. Active fluoride, sodium, (PREVIDENT) 1.1 % Gel Use as directed in the mouth or throat nightly. Active rifAXIMin (XIFAXAN) 550 mg Tab Take 550 mg by mouth 2 (two) times a day. Active dronabinoL (MARINOL) 2.5 MG capsule 3 Active ID-polyvinyl alcohol <artificial tears> (15-814) 1.4 % ophthalmic solution Active gabapentin (NEURONTIN) 100 MG capsule Take 100 mg by mouth 2 (two) times a day. EPILEPSY part of 500 mg dose Active aluminum-magnesi um hydroxide-simeth icone (NATALIA-LANTA) 200-200-20 mg/5 mL Susp Take by mouth. Activ e MULTIVITAMIN ORAL Take by mouth. Activ e Active Problems No known active problems Resolved Problems Problem Noted Date Diagnosed Date Resolved Date Pelvic mass in female 06/28/20182020 Assessment & Plan (06/28/2018 12:56 PM EST): Exam findings reviewed. Will check pelvic ultrasound. Family History Medical History Relation Comments Breast cancer Mother Relation Status Comments Mother Social History Tobacco Use Types Packs/Day Years Used Date Smoking Tobacco: Never Smokeless Tobacco: Never Alcohol Use Standard Drinks/Week Comments No 0 (1 standard drink = 0.6 oz pur e alcohol) Education Answer Date Recorded Are you interested in more education? Not on true e 10/10/2022 Are you concerned about learning? Not on file 10/10/2022 No 10/10/2022 No 10/10/2022 Digital Access Answer Date Recorded No 11/08/2022 No 11/08/2022 No 11/08/2022 Reliable internet access at home? Not on file 11/08/2022 Device with a working camera? 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 Not on file Not on file Not on file Last Filed Vital Signs Vital Sign Reading Time Taken Comments Blood Pressure 92/64 09/11/2022 9:29 AM EDT Pulse - - Temperature - - Respiratory Rate - - Oxygen Saturation - - Inhaled Oxygen Concentration - - Weight 44.4 kg (97 lb 12.8 oz) 09/11/2022 9:29 A M EDT Height 151.1 cm (4' 11.5 ) 09/11/2022 9:29 AM ED T Body Mass Index 19.42 09/11/2022 9:29 AM EDT Plan of Treatment Health Maintenance Due Date Last Done Comments CREATININE LEVEL 1966 TSH LEVEL 1966 VALPROIC ACID (DEPAKENE) LEVEL 1966 DEPRESSION SCREENING 1978 HEPATITIS C SCREENING 1984 HIV ONE-TIME SCREENING (18-65 YEARS) 1984 MAMMOGRAM 2006 COLOGUARD 2011 COLONOSCOPY 2011 COLORECTAL CANCER SCREENING 2011 FIT TEST 2011 FOBT 2011 SIGMOIDOSCOPY 2011 VIRTUAL COLONOSCOPY 2011 PNEUMOCOCCAL VACCINES (50+ years) (1 of 1 - PCV) 2016 ZOSTER VACCINES (1 of 2) 2016 PAP SMEAR 06/28/2021 06/28/2018, 06/28/2018 INFLUENZA VACCINE (#1) 2025 03/28/2021 COVID-19 VACCINE ( season) 2025 11/07/2021, 06/26/2021, 11/09/2020, Additional history exists LIPID PANEL 03/15/2029 03/15/2024, 07/0 06/2023, 09/14/2023 Adult Td,Tdap Booster 12/19/2030 12/19/2020 RSV VACCINE (1 - 1-dose 75+ series) 2041 SMOKING STATUS SCREENING (Once After 26 Yrs) Completed 09/11/2022 HEPATITIS A VACCINES Aged Out No long er eligible based on patient's age to complete this topic HIB VACCINES Aged Out No longer eligi ble based on patient's age to complete this topic MENINGOCOCCAL VACCINES (ACWY) Aged Out No longer eligible based on patient's age to complete this topic MENINGOCOCCAL VACCINES (B) Aged Out N o longer eligible based on patient's age to complete this topic Medical Devices Not on file Procedures Procedure Name Priority Date/Time Associated Diagnosis Comments PAP TEST Routine 06/28/2018 12:00 AM EST from Last 3 Months or Most Recently Relevant to Health Maintenance Results * Pap Smear (06/28/2018 12:00 AM EST) 06/28/2018 06/29/2018 2:4 1 PM EST Narrative SEE NARRATIVE - 2018 10:55 [place] [address] Medical Customer Service Representative: Tiana Wong MD DERRICK BARGE OPERATOR Cytology Report FINAL DIAGNOSIS A. PAP SMEAR (SUREPATH) CE: SPECIMEN ADEQUACY: Satisfactory for evaluation; transformation zone absent/insufficient. INTERPRETATION: NEGATIVE FOR INTRAEPITHELIAL LESION OR MALIGNANCY. Electronically Signed Out By: OCTAVIO Vega(ASCP) The Pap test is a screening test primarily for squamous cancers and precursors and has associated false-negative and false-positive results. New technologies such as liquid-based preparations may decrease but will not eliminate all false-negative results. Regular sampling and follow-up of unexplained clinical signs and symptoms are recommended to minimize false negative results. PROCEDURES/ADDENDA HPV Testing (Requested) Ordered Date: 06/29/2018 HPV Test Negative for high-risk human papillomavirus types 16, 18, 45 and the Other high risk probe set (Includes 31, 33, 35, 39, 51, 52, 56, 58, 59, 66, 68) by Carisa Niobrara Onclarity HR-HPV analysis. Clinical correlation is advised. This HPV test was performed at [facility], [address] [place] [address]. This test has been FDA approved for SurePath cervical cytology specimens. The accuracy and precision of this test for all other specimen sources has been verified in the Cytopathology Laboratory of the [facility] and has not been cleared or approved by the U.S. Food and Drug Administration. Clinical correlation is advised. CLINICAL HISTORY Date of Last Menstrual Period: Not Provided Menstrual History: Post Menopausal Other Clinical Conditions: Screening Pap SPECIMEN SOURCE A: PAP SMEAR (SUREPATH) CE Patient Name: JOHANA VENCES : 1965 (Age: 52) Sex: F [facility] Location: [facility] Date of Collection: 06/28/2018 Date of Reported: 2018 10:55 Results to: Helga Yin MSN, BS Helga Yin LUSTER REPAIRER CYTOLOGY ORDERABLES Final Resu lt SEE NARRATIVE from Last 3 Months or Most Recently Relevant to Health Maintenance Insurance MEDICARE PART A & B MEDICARE PART A & B MEDICARE PART A & B MEDICARE PART A & B MEDICARE PART A & B MEDICARE PART A & B MEDICARE PART A & B MEDICARE PART A & B MEDICARE PART A & B Care Teams Sewer Pipe Offbearer Relationship Specialty Start Date End Date Lalo Mock DO [address] [place] [address] PCP - General 06/18/17 Additional Source Comments The information contained in this document represents components of the legal health record. It is not the complete legal health record.[facility]
== END 2025-04-20 13:49 | disposition home or self-care (01) ==
LOC: HO.US 13:48
PROVIDERS: PCP Hospitalist; Visit Provider Urology
DX: N20.0 Calculus of kidney (principal); R31.9 Hematuria, unspecified; N39.0 Urinary tract infection, site not specified; Z87.440 Personal history of urinary (tract) infections
CPT/HCPCS: 76775

== ENCOUNTER → 2025-04-20 13:52 | Outpatient (BNV) | payer MEDICARE, MEDICAID, SELFPAY | PROVIDERS: PCP Hospitalist; Visit Provider Radiology Diagnostic Radiology | DX: N20.0 Calculus of kidney (principal) | CPT/HCPCS: 76775 ==

== ENCOUNTER 2025-04-27 12:58 | Outpatient (AMB) | payer MEDICARE, MEDICAID, SELFPAY ==
--- NOTE | 2025-04-27 13:19 | MHC.OFFVIS ---
Intake Visit Reasons: 1y/US Intake Note: Patient presents today for a 1y follow-up/US 04/20 Renal US Urology Meds- Levofloxacin Allergies to Antibiotic- Penicillin Blood Thinner- None Edi Programmer Analyst Required: No Accompanied by: Self / Same As Patient Allergies Penicillins (PENICILLINS) Allergy (Severe, Verified 04/27/25 13:19) SEIZURES HPI Comments Details: 04/27/25--Saray is a 59-year-old female history of dementia bipolar lives as a resident at the [facility] she is followed for left nephrolithiasis she is here in follow had a renal ultrasound done on 04/20/2025 02/28/23--Lucero is a 58 year old female, with history of dementia, bipolar and resides at [facility], she is followed for left nephrolithiasis. I reviewed fu renal US, Left kidney stone 5 mm, stable no hydronephrosis. UA negative blood. Pt is asymptomatic, plan- will continue to monitor conservatively. Review of charts: 01/29/2023?Lucero is a 57-year-old female who presents today to the office. The patient resides at [facility] and presents with an patient assistant from that facility. She was last seen by me on 10/31/2022. CT urogram was ordered at that time. She has a past medical history significant for dementia, diabetes mellitus, bipolar disorder, and epilepsy. She is a status post Cystoscopy bilateral retrograde done on 12/30/2022, Cystoscopy findings revealed no suspicious bladder lesions visualized. Patient has had CT urogram done on 01/27/2023. I have reviewed the CAT scan of the abdomen/pelvis with and without contrast from 01/27/2023 revealed 3 mm left upper pole renal stone. Crossing vessel adjacent to the left UPJ region. Constipation. Fibroid uterus. New abdominal wall findings. 10/31/2022: Has medical history of dementia, diabetes mellitus, bipolar disorder, and epilepsy. The patient is a long-term resident of [facility] at [facility]. The patient is a poor historian. She was admitted in the hospital in July for UTI and was seen by infectious disease during the admission. Urine culture--07/27/2022-- positive for Enterobacter cloacae complex. treated with Levaquin. On review of her chart she had a pelvic US done on 10/04/22 which showed a 2.7?1.3?1.3cm echogenic structure. Differential diagnosis include clot versus tumor.? The patient denies dysyuria. The patient declines providing urine sample for urinalysis. Plan: Will coordinate with [facility] to obtain urine sample to get Urine cytology completed. CT urogram was ordered. Cystoscopy discussed to be scheduled.? ? [facility] Medical History Resides in nursing home facility Diabetes 1.5, managed as type 2 Bipolar disorder, unspecified Intellectual disability Dementia Dry eye syndrome of bilateral lacrimal glands Epilepsy Hypothyroidism Psychoses Family History Father No problems noted. Mother No problems noted. Social History Household Members: Other Household Members Other:: resides at [facility] Housing: Assisted Living Facility Housing Other:: [facility] Are you a primary critical care physician to a significant other at home: No Do you presently have visiting nurse or other home services: Yes ([facility] staff) Alcohol intake: never Patient Tobacco Use Status: Never used Tobacco Advance Directives Date on File: 06/15/20 service: No Current occupational status: retired Results AMB Urinalysis, Automated UA Leukoctes 0 Renetta/uL Last Edit by Stacey Frye on 04/27/25 16:58 UA Nitrite Negative Last Edit by Stacey Frye on 04/27/25 16:58 UA Urobilinogen 0.2 mg/dL Last Edit by Stacey Frye on 04/27/25 16:58 UA Protein 0 mg/dL Last Edit by Stacey Frye on 04/27/25 16:58 UA pH 6.0 Last Edit by Satcey Frye on 04/27/25 16:58 UA Blood 0 Larry/uL Last Edit by Stacey Frye on 04/27/25 16:58 UA Specific [place] 1.015 Last Edit by Stacey Frye on 04/27/25 16:58 UA Ketone Negative Last Edit by Stacey Frye on 04/27/25 16:58 UA Bilirubin 0 mg/dL Last Edit by Stacey Frye on 04/27/25 16:58 UA Glucose 0 mg/dL Last Edit by Stacey Frye on 04/27/25 16:58 Results Reviewed Results Reviewed: Date of Service: 04/20/25 Procedure(s): US renal BI Accession Number(s): [id number] cc: Martha Bond MD; Lalo Mock DOEvelyn Reason for Exam: N20.0 - Calculus of kidney EXAMINATION: US KIDNEY BILATERAL HISTORY: N20.0 - Calculus of kidney TECHNIQUE: Real-time grayscale ultrasound imaging of the kidneys was performed and images were reviewed. COMPARISON: Comparison is made with the prior examination dated 12/14/2023. FINDINGS: Right kidney: The right kidney measures 9.4 x 3.6 x 3.8 cm. Renal parenchymal echotexture and thickness are normal. There are no masses. There is no hydronephrosis or renal calculi. Left Kidney: The left kidney measures 9.8 x 5.1 x 4.5 cm. Renal parenchymal echotexture and thickness are normal. There are no masses. There is a 7 x 5 x 5 mm nonobstructing upper pole calculus. There is no hydronephrosis. US/US renal BI IMPRESSION: 7 x 5 x 5 mm left upper pole renal calculus. Otherwise unremarkable renal ultrasound. Assessment & Plan Assessment & Plan Orders: Orders AMB Urinalysis Automated Today N20.0 - Calculus of kidney, N39.0 - Urinary tract infection, site not specified, R31.9 - Hematuria, unspecified Coding
--- OUTSIDE RECORDS SUMMARY | 2025-04-27 16:11 | XMS_ITS | Encounter Summary ---
Author Organization [facility] Address [address] [place] [address] Phone Care Team Providers Care Manager Programming Name Role Phone Lalo Mock DO Primary Care Provider [phone] Encounter Details Date Type Department Care Team (Late st Contact Info) Description 09/20/2018 Ancillary Orders [facility] [address] [place] [address] Helga Yin NP [address] [place] [address] Pelvic mass in female Social History Tobacco [...] is no free fluid. . Helga Yin DINING ROOM HELPER IMG US PELVIS Final Result documented in this encounter Visit Diagnoses Diagnosis Pelvic mass in female documented in this encounter Care Teams Manager Programming Relationship Specialty Start Date End Date Lalo Mock DO [address] [place] [address] PCP - General 06/18/17 documented as of this encounter Additional Source Comments The information contained in this document represents components of the legal health record. It is not the complete legal health record.[facility]
--- OUTSIDE RECORDS SUMMARY | 2025-04-27 16:11 | XMS_ITS | Clinical Summary ---
Author Organization [facility] Address [address] [place] [address] [place] [address] Phone Care Team Providers Care Cellar Pumper Name Role Phone Lalo Mock DO Primary Care Provider [phone] Allergies Active Allergy Reactions Criticality Noted Date [...] capsule 3 Active ID-polyvinyl alcohol <artificial tears> (15-044) 1.4 % ophthalmic solution Active gabapentin (NEURONTIN) [...] patient's age to complete this topic IPV VACCINES Aged Out No longer eligi ble [...] SEE NARRATIVE - 2018 10:55 [place] [address] Test Cell Technician: Tiana Wong MD FARM EQUIPMENT ENGINEER Cytology Report FINAL DIAGNOSIS A. PAP SMEAR [...] 52, 56, 58, 59, 66, 68) by [employer] ([employer]) Onclarity HR-HPV analysis. Clinical correlation is advised. This HPV test was performed at [facility], [address] [place] [address]. This test has been FDA approved for SurePath cervical cytology specimens. The accuracy and precision of this test for all other specimen sources has been verified in the Cytopathology Laboratory of the [facility] and has not been cleared or approved by the U.S. Food and Drug Administration. Clinical correlation is advised. CLINICAL HISTORY Date of Last Menstrual Period: Not Provided Menstrual History: Post Menopausal Other Clinical Conditions: Screening Pap SPECIMEN SOURCE A: PAP SMEAR (SUREPATH) CE Patient Name: MARCELL VENCESDA : 1965 (Age: 52) Sex: F Institution: [facility] Location: [facility] Date of Collection: 06/28/2018 Date of Reported: 2018 10:55 Results to: Helga Yin MSN, BS Helga Yin ENERGY INFRASTRUCTURE ENGINEER CYTOLOGY ORDERABLES Final Resu lt SEE NARRATIVE from Last 3 Months or Most Recently Relevant to Health Maintenance Insurance MEDICARE PART A & B [place] MEDICARE PART A & B Member Subscriber Plan / Payer ([facility] [employer] 05/15/1990-) Name:Johana Vences Member ID:[id number] Relation to Subscriber:Self Name:Johana Vences Subscriber ID:[id number] Payer ID:[id number] Group ID:Not on file Type:Medicare Address: [employer] [address] [place] [address] [place] MEDICARE PART A & B Member Subscriber Plan / Payer ([facility] [employer] 05/15/1990-) Name:Gianna Johana Member ID:[id number] Relation to Subscriber:Self Name:Johana Vences Subscriber ID:[id number] Payer ID:[id number] Group ID:Not on file Type:Medicare Address: [employer] [address] [place] [address] [place] MEDICARE PART A & B Member Subscriber Plan / Payer ([facility] [employer] 05/15/1990-) Name:Gianna Johana Member ID:[id number] Relation to Subscriber:Self Name:Johana Vences Subscriber ID:[id number] Payer ID:[id number] Group ID:Not on file Type:Medicare Address: [employer] [address] [place] [address] [place] MEDICARE PART A & B MEDICARE PART A & B Member Subscriber Plan / Payer ([facility] [employer] 05/15/1990-) Name:Gianna Johana Member ID:[id number] Relation to Subscriber:Self Name:Johana Vences Subscriber ID:[id number] Payer ID:[id number] Group ID:Not on file Type:Medicare Address: [employer] [address] [place] [address] [place], [place] MEDICARE PART A & B MEDICARE PART A & B MEDICARE PART A & B Care Teams Cellar Pumper Relationship Specialty Start Date End Date Lalo Mock DO [address] [place] [address] PCP - General 06/18/17 Additional Source Comments The information contained in this document represents components of the legal health record. It is not the complete legal health record.[facility]
--- OUTSIDE RECORDS SUMMARY | 2025-04-27 16:11 | XMS_ITS | Encounter Summary ---
Author Organization [facility] Address [address] [place] [address] Care Team Providers Care Ice Carver Name Role Phone Lalo Mock MD Primary Care Provider [phone] Encounter Details Date Type Department Care Team (Late st Contact Info) Description 09/27/2024 Lab Requisition [facility] - Main Lab [address] [facility] [place] [address] Lalo Mock MD [address] [place] [address] [address] [place], [place] Type 2 diabetes mellitus without complications [...] * Red tube (09/27/2024 1:15 PM EDT) [facility] Extra Tube Hold for add-ons. 09/27/2024 4:01 PM EDT [facility] Comment:Auto resulted. Blood Venous blood specimen / Unknown 09/27/2024 1:15 PM EDT 09/27/2024 2:41 PM EDT us Lalo Mock MD LAB BLOOD ORDERABLES Final Resul t Performing Organization Address [facility] Co de Phone Number [facility] [address] [place] [address], [place] [phone] * (ABNORMAL) Ammonia (09/27/2024 1:15 PM EDT) [facility] Ammonia 47(H) 11 - 35 mcmol/L LAB CHEMISTRY METHOD 09/27/2024 3:12 PM EDT [facility] Blood Venous blood specimen / Unknown 09/27/2024 1:15 PM EDT 09/27/2024 2:41 PM EDT us Lalo Mock MD LAB BLOOD ORDERABLES Final Resul t Performing Organization Address [facility]/ZIP Co de Phone Number [facility] [address] [place] [address], [place] [phone] * Thyroid stimulating hormone (09/27/2024 1:15 PM EDT) [facility] TSH 1.09 0.40 - 4.00 mcIU/mL LAB CHEMISTRY METHOD 09/28/2024 11:29 AM EDT [facility] Blood Venous blood specimen / Unknown 09/27/2024 1:15 PM EDT 09/27/2024 2:41 PM EDT us Lalo Mock MD LAB BLOOD ORDERABLES Final Resul t Performing Organization Address [facility] Co de Phone Number [facility] [address] [place] [address], [place] [phone] * Thyroxine free (09/27/2024 1:15 PM EDT) Pathologist [facility] Free T4 0.82 0.70 - 1.80 ng/dL LAB CHEMISTRY METHOD 09/27/2024 5:53 PM EDT [facility] Blood Venous blood specimen / Unknown 09/27/2024 1:15 PM EDT 09/27/2024 2:41 PM EDT us Lalo Mock MD LAB BLOOD ORDERABLES Final Resul t Performing Organization Address [facility] de Phone Number [facility] [address] [place] [address], [place] [phone] * (ABNORMAL) Valproic acid level, total (09/27/2024 1:15 PM EDT) [facility] Valproic Acid, Total 109(H) 50 - 100 mcg/mL LAB CHEMISTRY METHOD 09/27/2024 5:04 PM EDT [facility] Blood Venous blood specimen / Unknown 09/27/2024 1:15 PM EDT 09/27/2024 2:41 PM EDT us Lalo Mock MD LAB BLOOD ORDERABLES Final Resul t Performing Organization Address [facility] Co de Phone Number [facility] [address] [place] [address], [place] [phone] documented in this encounter Visit Diagnoses Diagnosis Type 2 diabetes mellitus without complications (CMS/HCC V24, CMS/HCC V28) documented in this encounter Care Teams Ice Carver Relationship Specialty Start Date End Date Lalo Mock MD [address] [place] [address] Dr [address] [place] PCP - General Internal Medicine 08/22/24 documented as of this encounter
--- OUTSIDE RECORDS SUMMARY | 2025-04-27 16:11 | XMS_ITS | Clinical Summary ---
Author Organization [address] [facility] Address [address] [place] [address] Phone Care Team Providers Care Court Manager Name Role Phone Lalo Mock MD Primary Care Provider [phone] Social History Tobacco Use Types Packs/Day Years [...] Depression Screening 06/15/2024 COVID-19 Vaccine (1 - 2024-2 6 season) 2025 Influenza Vaccine (#1) 2025 Cholesterol [...] examinations Type 2 diabetes mellitus without complications ([facility] V24, [facility] V28) from Last 3 Months or Most Recently Relevant to Health Maintenance Results * Lipid panel with reflex to direct LDL (12/26/2024 12:15 PM EDT) Cholesterol 189 0 - 200 mg/dL LAB CHEMISTRY METHOD 12/26/2024 3:51 PM [facility] Triglycerides 71 0 - 150 mg/dL LAB CHEMISTRY METHOD 12/26/2024 3:51 PM [facility] HDL 84 >=40 mg/dL LAB CHEMISTRY METHOD 12/26/2024 3:51 PM [facility] LDL Calculated 91 0 - 100 mg/dL LAB CHEMISTRY METHOD 12/26/2024 3:51 PM [facility] VLDL Cholesterol Gurjit 14.2 mg/dL LAB CHEMISTRY METHOD 12/26/2024 3:51 PM [facility] Non HDL Chol. (LDL+VLDL) 105 <145 mg/dL LAB CHEMISTRY METHOD 12/26/2024 3:51 PM [facility] Chol/HDL Ratio 2.3 0.0 - 4.4 LAB CHEMISTRY METHOD 12/26/2024 3:51 PM [facility] Blood Venous blood specimen / Unknown 12/26/2024 12:15 PM EDT 12/26/2024 2:02 PM EDT Lalo Mock MD LAB BLOOD ORDERABLES Final Resul t [facility] [address] [place] [address], [place] [phone] from Last 3 Months or Most Recently Relevant to Health Maintenance Insurance MEDICARE Care Teams Court Manager Relationship Specialty Start Date End Date Lalo Mock MD [address] [place], [place] PCP - General Internal Medicine 08/22/24
--- OUTSIDE RECORDS SUMMARY | 2025-04-27 16:11 | XMS_ITS | Encounter Summary ---
Author Organization [facility] Address [address] [place] [address] Care Team Providers Care Police Officer Name Role Phone Lalo Mock MD Primary Care Provider [phone] Encounter Details Date Type Department Care Team (Late st Contact Info) Description 08/22/2024 Lab Requisition [facility] - Main Lab [address] [facility] [place] [address] Lalo Mock MD [address] [place] [address] [address] [place], [place] Type 2 diabetes mellitus without complications [...] * Hemoglobin A1c (08/22/2024 11:32 AM EDT) [facility] Hemoglobin A1C 6.2 <6.5 % LAB CHEMISTRY METHOD 08/22/2024 9:39 PM EDT [facility] Mean Bld Glu Estim. 131 mg/dL LAB CHEMISTRY METHOD 08/22/2024 9:39 PM EDT [facility] Blood Venous blood specimen / Unknown 08/22/2024 11:32 AM EDT 08/22/2024 1:19 PM EDT us Lalo Mock MD LAB BLOOD ORDERABLES Final Resul t [facility] [address] [place] [address], [place] [phone] * Lipid panel with reflex to direct LDL (08/22/2024 11:32 AM EDT) [facility] Cholesterol 166 0 - 200 mg/dL LAB CHEMISTRY METHOD 08/22/2024 2:01 PM EDT [facility] Triglycerides 57 0 - 150 mg/dL LAB CHEMISTRY METHOD 08/22/2024 2:01 PM T [facility] HDL 84 >=40 mg/dL LAB CHEMISTRY METHOD 08/22/2024 2:01 PM [facility] LDL Calculated 71 0 - 100 mg/dL LAB CHEMISTRY METHOD 08/22/2024 2:01 PM [facility] VLDL Cholesterol Gurjit 11.4 mg/dL LAB CHEMISTRY METHOD 08/22/2024 2:01 PM [facility] Non HDL Chol. (LDL+VLDL) 82 <145 mg/dL LAB CHEMISTRY METHOD 08/22/2024 2:01 PM [facility] Chol/HDL Ratio 2.0 0.0 - 4.4 LAB CHEMISTRY METHOD 08/22/2024 2:01 PM [facility] Blood Venous blood specimen / Unknown 08/22/2024 11:32 AM EDT 08/22/2024 1:41 PM EDT us Lalo Mock MD LAB BLOOD ORDERABLES Final Resul t [facility] [address] [place] [address], [place] [phone] * (ABNORMAL) Comprehensive metabolic panel (08/22/2024 11:32 AM EDT) Sodium 141 133 - 145 mmol/L LAB CHEMISTRY METHOD 08/22/2024 1:58 PM [facility] Potassium 4.8 3.5 - 5.5 mmol/L LAB CHEMISTRY METHOD 08/22/2024 1:58 PM [facility] Chloride 108 96 - 110 mmol/L LAB CHEMISTRY METHOD 08/22/2024 1:58 PM [facility] CO2 25 21 - 32 mmol/L LAB CHEMISTRY METHOD 08/22/2024 1:58 PM [facility] Anion Gap 8 3 - 11 LAB CHEMISTRY METHOD 08/22/2024 1:58 PM [facility] Glucose 114(H) 70 - 100 mg/dL LAB CHEMISTRY METHOD 08/22/2024 1:58 PM [facility] BUN 19 5 - 25 mg/dL LAB CHEMISTRY METHOD 08/22/2024 1:58 PM [facility] Creatinine 1.67(H) 0.50 - 1.10 mg/dL LAB CHEMISTRY METHOD 08/22/2024 1:58 PM [facility] eGFR 35(L) >=60 mL/min/1. 73m2 LAB CHEMISTRY METHOD 08/22/2024 1:58 PM [facility] Comment:Calculation based on the Chronic Kidney Disease Epidemiology Collaboration (CKD-EPI) equation refit without adjustment for race. BUN/Creatinine Ratio 11.4 LAB CHEMISTRY METHOD 08/22/2024 1:58 PM [facility] Calcium 8.8 8.5 - 10.5 mg/dL LAB CHEMISTRY METHOD 08/22/2024 1:58 PM EDT [facility] AST (SGOT) 15 10 - 42 unit/L LAB CHEMISTRY METHOD 08/22/2024 1:58 PM EDT [facility] ALT (SGPT) 17 10 - 60 unit/L LAB CHEMISTRY METHOD 08/22/2024 1:58 PM EDT [facility] Alkaline Phosphatase 69 42 - 121 unit/L LAB CHEMISTRY METHOD 08/22/2024 1:58 PM EDT [facility] Total Protein 6.7 6.0 - 8.0 g/dL LAB CHEMISTRY METHOD 08/22/2024 1:58 PM EDT [facility] Albumin 3.2 3.2 - 5.0 g/dL LAB CHEMISTRY METHOD 08/22/2024 1:58 PM EDT [facility] Total Bilirubin 0.3 0.0 - 1.4 mg/dL LAB CHEMISTRY METHOD 08/22/2024 1:58 PM EDT [facility] Blood Venous blood specimen / Unknown 08/22/2024 11:32 AM EDT 08/22/2024 1:41 PM EDT us Lalo Mock MD LAB BLOOD ORDERABLES Final Resul t [facility] [address] [place] [address], * (ABNORMAL) Complete blood count (08/22/2024 11:32 AM EDT) WBC 5.4 4.8 - 10.8 K/mcL LAB HEMETOLOGY METHOD 08/22/2024 1:19 PM EDT [facility] RBC 3.20(L) 3.80 - 4.80 M/mcL LAB HEMETOLOGY METHOD 08/22/2024 1:19 PM EDT [facility] Hemoglobin 10.1(L) 11.5 - 16.0 g/dL LAB HEMETOLOGY METHOD 08/22/2024 1:19 PM EDT [facility] Hematocrit 29.8(L) 35.0 - 47.0 % LAB HEMETOLOGY METHOD 08/22/2024 1:19 PM EDT [facility] MCV 94.3 79.0 - 98.0 FL LAB HEMETOLOGY METHOD 08/22/2024 1:19 PM EDT [facility] MCH 32.0 27.0 - 32.0 pcg LAB HEMETOLOGY METHOD [facility]/22[facility]2024 [facility] MCHC 33.9 32.0 - 37.0 g/dL LAB HEMETOLOGY METHOD 08/22/2024 1:19 PM [facility] RDW 14.1 11.0 - 15.0 % LAB HEMETOLOGY METHOD 08/22[facility]2024 1[facility] Platelets 102(L) 130 - 400 K/mcL LAB HEMETOLOGY METHOD 08/22/2024 1:19 [facility] MPV 12.4(H) 7.0 - 11.0 FL LAB HEMETOLOGY METHOD 08/22/2024 1:19 PM [facility] NRBC 0.0 <1.0 % LAB HEMETOLOGY METHOD 08/22/2024 1:19 [facility] NRBC Absolute 0.00 <0.10 K/mcL LAB HEMETOLOGY METHOD 08/22/2024 1:19 PM [facility] Blood Venous blood specimen / Unknown 08/22/2024 11:32 AM EDT 08/22/2024 1:19 PM EDT Lalo Mock MD LAB BLOOD ORDERABLES Final Resul t [facility] [address] [place] [address], documented in this encounter Visit Diagnoses Diagnosis Type 2 diabetes mellitus without complications (CMS/HCC V24, CMS/HCC V28) documented in this encounter Care Teams Police Officer Relationship Specialty Start Date End Date Lalo Mock MD [address] [place] [address] Dr [address] [place], [place] PCP - General Internal Medicine 08/22/24 documented as of this encounter
--- OUTSIDE RECORDS SUMMARY | 2025-04-27 16:11 | XMS_ITS | Encounter Summary ---
Author Organization [facility] Address [address] [place] [address] Care Team Providers Care Category Specialist Name Role Phone Lalo Mock MD Primary Care Provider [phone] Encounter Details Date Type Department Care Team (Late st Contact Info) Description 12/26/2024 Lab Requisition [facility] - Main Lab [address] [facility] [employer] [place] [address] Lalo Mock MD [address] [place] [address] Dr [address] [place], [place] Encounter for other specified special examinations; [...] examinations Type 2 diabetes mellitus without complications ([facility]/HCC V24, [facility] V28) COMPREHENSIVE METABOLIC PANEL Routine 12/26/2024 12:15 PM EDT Encounter for other specified special examinations Type 2 diabetes mellitus without complications ([facility]/HCC V24, [facility] V28) documented in this encounter Results * (ABNORMAL) CBC auto differential (12/26/2024 12:15 PM EDT) [facility] WBC 4.7(L) 4.8 - 10.8 K/mcL LAB HEMETOLOGY METHOD 12/26/2024 2:25 PM EDT [facility] RBC 3.20(L) 3.80 - 4.80 M/mcL LAB HEMETOLOGY METHOD 12/26/2024 2:25 PM EDT [facility] Hemoglobin 9.9(L) 11.5 - 16.0 g/dL LAB HEMETOLOGY METHOD 12/26/2024 2:25 PM EDT [facility] Hematocrit 29.7(L) 35.0 - 47.0 % LAB HEMETOLOGY METHOD 12/26/2024 2:25 PM EDT [facility] MCV 93.7 79.0 - 98.0 FL LAB HEMETOLOGY METHOD 12/26/2024 2:25 PM EDT [facility] MCH 31.2 27.0 - 32.0 pcg LAB HEMETOLOGY METHOD 12/26/2024 2:25 PM EDT [facility] MCHC 33.3 32.0 - 37.0 g/dL LAB HEMETOLOGY METHOD 12/26/2024 2:25 PM EDT [facility] RDW 13.9 11.0 - 15.0 % LAB HEMETOLOGY METHOD 12/26/2024 2:25 PM EDT [facility] Platelets 143 130 - 400 K/mcL LAB HEMETOLOGY METHOD 12/26/2024 2:25 PM EDT [facility] MPV 12.0(H) 7.0 - 11.0 FL LAB HEMETOLOGY METHOD 12/26/2024 2:25 PM EDT [facility] NRBC 0.0 <1.0 % LAB HEMETOLOGY METHOD 12/26/2024 2:25 PM EDT [facility] NRBC Absolute 0.00 <0.10 K/mcL LAB HEMETOLOGY METHOD 12/26/2024 2:25 PM EDT [facility] Neutrophils Relative 42.8 % LAB HEMETOLOGY METHOD 12/26/2024 2:25 PM EDT [facility] Lymphocytes Relative 43.7 % LAB [facility]OLOG[facility] Monocytes Relative 11.0 % LAB HEMETOLOGY METHOD 12/26/2024 2:25 PM EDT [facility] Eosinophils Relative 1.9 % LAB HEMETOLOGY METHOD 12/26/2024 2:25 PM EDT [facility] Basophils Relative 0.4 % LAB [facility]EMETOLOGY METHOD [facility] Immature Granulocytes Relative 0.2 % LAB HEMETOLOGY METHOD 12/26/2024 2:25 PM EDT [facility] Neutrophils Absolute 1.99 1.50 - 7.00 K/mcL LAB HEMETOLOGY METHOD 12/26/2024 2:25 PM EDT [facility] Lymphocytes Absolute 2.03 1.00 - 5.00 K/mcL LAB HEMETOLOGY METHOD 12/26/2024 2:25 PM EDT [facility] Monocytes Absolute 0.51 0.20 - 1.00 K/mcL LAB HEMETOLOGY METHOD [facility]/26[facility]24 [facility] Eosinophils Absolute 0.09 0.00 - 0.50 K/mcL LAB HEMETOLOGY METHOD 12/26/2024 2:25 PM EDT [facility] Basophils Absolute 0.02 0.00 - 0.20 K/[facility] LAB HEMETOLOGY METHOD 12/26/2024 2:25 PM EDT [facility] Immature Granulocytes Absolute 0.01 0.00 - 0.03 K/[facility] LAB HEMETOLOGY METHOD 12/26/2024 2:25 PM EDT [facility] Blood Venous blood specimen / Unknown 12/26/2024 12:15 PM EDT 12/26/2024 2:02 PM EDT us Lalo Mock MD LAB BLOOD ORDERABLES Final Resul t Performing Organization Address [facility]/ZIP Co de Phone Number [facility] [address] [place] [address], [place] [phone] * Hemoglobin A1c (12/26/2024 12:15 PM EDT) Hemoglobin A1C 6.3 <6.5 % LAB CHEMISTRY METHOD 12/26/2024 8:26 PM EDT [facility] Mean Bld Glu Estim. 134 mg/dL LAB CHEMISTRY METHOD 12/26/2024 8:26 PM EDT [facility] Blood Venous blood specimen / Unknown 12/26/2024 12:15 PM EDT 12/26/2024 2:02 PM EDT us Lalo Mock MD LAB BLOOD ORDERABLES Final Resul t Performing Organization Address City/[facility]/ZIP Co de Phone Number [facility] [address] [place] [address], [place] [phone] * Lipid panel with reflex to direct LDL (12/26/2024 12:15 PM EDT) Cholesterol 189 0 - 200 mg/dL LAB CHEMISTRY METHOD 12/26/2024 3:51 PM EDT [facility] Triglycerides 71 0 - 150 mg/dL LAB CHEMISTRY METHOD 12/26/2024 3:51 PM EDT [facility] HDL 84 >=40 mg/dL LAB CHEMISTRY METHOD 12/26/2024 3:51 PM EDT [facility] LDL Calculated 91 0 - 100 mg/dL LAB CHEMISTRY METHOD 12/26/2024 3:51 PM EDT [facility] VLDL Cholesterol Gurjit 14.2 mg/dL LAB CHEMISTRY METHOD 12/26/2024 3:51 PM EDT [facility] Non HDL Chol. (LDL+VLDL) 105 <145 mg/dL LAB CHEMISTRY METHOD 12/26/2024 3:51 PM EDT [facility] Chol/HDL Ratio 2.3 0.0 - 4.4 LAB CHEMISTRY METHOD 12/26/2024 3:51 PM EDT [facility] Blood Venous blood specimen / Unknown 12/26/2024 12:15 PM EDT 12/26/2024 2:02 PM EDT us Lalo Mock MD LAB BLOOD ORDERABLES Final Resul t [facility] [address] [place] [address], [place] [phone] * (ABNORMAL) Comprehensive metabolic panel (12/26/2024 12:15 PM EDT) Sodium 138 133 - 145 mmol/L LAB CHEMISTRY METHOD 12/26/2024 3:43 PM EDT [facility] Potassium 4.8 3.5 - 5.5 mmol/L LAB CHEMISTRY METHOD 12/26/2024 3:43 PM EDT [facility] Chloride 108 96 - 110 mmol/L LAB CHEMISTRY METHOD 12/26/2024 3:43 PM EDT [facility] CO2 27 21 - 32 mmol/L LAB CHEMISTRY METHOD 12/26/2024 3:43 PM [facility] Anion Gap 3 3 - 11 LAB CHEMISTRY METHOD 12/26/2024 3:43 PM [facility] Glucose 139(H) 70 - 100 mg/dL LAB CHEMISTRY METHOD 12/26/2024 3:43 PM [facility] BUN 17 5 - 25 mg/dL LAB CHEMISTRY METHOD 12/26/2024 3:43 PM [facility] Creatinine 1.54(H) 0.50 - 1.10 mg/dL LAB CHEMISTRY METHOD 12/26/2024 3:43 PM [facility] eGFR 39(L) >=60 mL/min/1. 73m2 LAB CHEMISTRY METHOD 12/26/2024 3:43 PM [facility] Comment:Calculation based on the Chronic Kidney Disease Epidemiology Collaboration (CKD-EPI) equation refit without adjustment for race. BUN/Creatinine Ratio 11.0 LAB CHEMISTRY METHOD 12/26/2024 3:43 PM [facility] Calcium 9.0 8.5 - 10.5 mg/dL LAB CHEMISTRY METHOD 12/26/2024 3:43 PM [facility] AST (SGOT) 11 10 - 42 unit/L LAB CHEMISTRY METHOD 12/26/2024 3:43 PM [facility] ALT (SGPT) 15 10 - 60 unit/L LAB CHEMISTRY METHOD 12/26/2024 3:43 PM [facility] Alkaline Phosphatase 72 42 - 121 unit/L LAB CHEMISTRY METHOD 12/26/2024 3:43 PM [facility] Total Protein 6.7 6.0 - 8.0 g/dL LAB CHEMISTRY METHOD 12/26/2024 3:43 PM [facility] Albumin 3.1(L) 3.2 - 5.0 g/dL LAB CHEMISTRY METHOD 12/26/2024 3:43 PM [facility] Total Bilirubin 0.3 0.0 - 1.4 mg/dL LAB CHEMISTRY METHOD 12/26/2024 3:43 PM EDT [facility] Blood Venous blood specimen / Unknown 12/26/2024 12:15 PM EDT 12/26/2024 2:02 PM EDT us Lalo Mock MD LAB BLOOD ORDERABLES Final Resul t [facility] [address] [place] [address], documented in this encounter Visit Diagnoses Diagnosis Encounter for other specified special examinations Type 2 diabetes mellitus without complications (CMS/HCC V24, CMS/HCC V28) documented in this encounter Care Teams Category Specialist Relationship Specialty Start Date End Date Lalo Mock MD [address] [place] [address] Dr [address] [place], [place] PCP - General Internal Medicine 08/22/24 documented as of this encounter
== END 2025-04-27 13:58 | disposition home or self-care (01) ==
LOC: HO.HUSH 12:59
PROVIDERS: PCP Hospitalist; Visit Provider Urology
DX: N20.0 Calculus of kidney (principal); R31.9 Hematuria, unspecified; N39.0 Urinary tract infection, site not specified

== ENCOUNTER → 2025-04-27 12:58 | Outpatient (BNVA) | payer MEDICARE, MEDICAID, SELFPAY | PROVIDERS: PCP Hospitalist; Visit Provider Urology | DX: N20.0 Calculus of kidney (principal); Z87.440 Personal history of urinary (tract) infections | CPT/HCPCS: 81003; 99212 ==